=== PATIENT | male | born 1970 | race Caucasian/White ===

== ENCOUNTER 2020-11-12 09:02 | Outpatient (CLI) | payer BC, SELFPAY ==
--- NOTE | 2020-11-28 15:11 | WPDHOMESLEEP ---
Sleep Study - Home Unattended Date of Study: 11/12/20 Ordering Provider: Car Tiwari MD Interpreting Provider: Magalys Siu MD Home Sleep Study Type: Apnea Link Air Height: 1.83 m Weight: 97.522 kg Body Mass Index: 29.1 Neck Circumference (inches): 17 [place]: 12 Reason for Sleep Study Loud snoring, poor quality sleep, excessive daytime sleepiness Sleep History Johnathan Garza is a 50 year old man with difficulty getting to bed early enough. He snores very loudly. He estimates getting 4.5 to 5 hours of sleep at night. It is difficult for him to fall asleep and stay asleep. He occasionally awakens at night with heartburn, belching or coughing. He frequently awakens from sleep feeling short of breath. He frequently has trouble sleeping with a cold. He occasionally wakes up gasping for breath during the night. He occasionally has breathing problems at night observed by others. He occasionally notices his heart pounding or beating irregularly night. He frequently falls asleep during the day however this never happens involuntarily or while driving. He does not have loss of muscle tone with strong emotion. He does not have daytime difficulties due to excessive sleepiness. He does not feel paralyzed on waking or falling asleep. He occasionally has vivid dreamlike scenes upon awakening or falling asleep. He does not feel afraid to go to sleep. He does not have nightmares. He rarely remembers his dreams. He occasionally has racing thoughts. He rarely feels sad or depressed. He frequently has anxiety and muscular tension. He frequently notices parts of his body jerking. He does not kick at night. He occasionally has crawling and aching feelings in his legs. He does not have any kind of leg pain at night. He does not have morning jaw pain and does not grind his teeth during sleep. He constantly has bothered by pain during the day. He frequently is awakened by pain at night. He constantly wakes up feeling stiff in the morning with sore achy muscles and pain in the spine. He has fatigue and memory problems. Normal bedtime is between 10:30 p.m. and 11:00 p.m. falling asleep within 30 minutes if he has the television on. He typically wakes 3-5 times at night. He tries to return to sleep by keeping his eyes closed and not letting his mind think about too many things. He wakes in the morning at 4:15 a.m.. On the weekends, he stays awake a little later, 11:00 p.m. to midnight and wakes at 7:00 a.m.. He estimates getting 4.5 to 5 hours of sleep most nights. He takes naps at work. A short 10 or 15 minute nap sometimes feels refreshing. He is drowsy in the morning for 3 hours or longer. Habits: Caffeine 4 cups per day. No alcohol. 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 Fatigue Hypersomnia Primary hypertension Family History Family History Mother Patient's mother is , Onset Age: 69 Father Patient's father is , Onset Age: 73 Social History Social History Smoking status: Former smoker Alcohol intake: never Substance use: never Substance use type: does not use Medications Home Medications Medication Instructions Recorded Confirmed Type clotrimazole-betamethasone 1 1 applic TOPICAL BID 14 Days #45 gm 02/21/20 10/01/20 Rx %-0.05 % topical cream amlodipine 10 mg tablet 10 mg PO DAILY #90 tablet 10/01/20 10/01/20 Rx buspirone 15 mg tablet 15 mg PO BID #180 tablet 10/01/20 10/01/20 Rx hydrochlorothiazide 12.5 mg tablet 12.5 mg PO DAILY #90 tablet 10/01/20 10/01/20 Rx irbesartan 300 mg tablet 300 mg PO DAILY #90 tablet 10/01/20 10/01/20 Rx Sleep Procedure This test was perfo
[2020-11-28 15:25] VITALS: BMI 29.1
== END 2020-11-12 09:03 | disposition home or self-care (01) ==
PROVIDERS: PCP Family Medicine; Visit Provider Family Medicine
DX: G47.33 Obstructive sleep apnea (adult) (pediatric) (principal)
CPT/HCPCS: 95806

== ENCOUNTER → 2020-12-12 01:27 | Outpatient (CLI) | payer BC, SELFPAY ==
[2020-12-12 21:08] LABS: SARS-CoV-2 RNA PCR Negative
== END ==
PROVIDERS: PCP Family Medicine; Visit Provider Internal Medicine Critical Care Medicine
DX: R68.89 Other general symptoms and signs (principal); Z20.822 Contact with and (suspected) exposure to COVID-19
CPT/HCPCS: C9803; U0003; U0005

== ENCOUNTER 2020-12-14 07:31 | Outpatient (CLI) | payer BC, SELFPAY ==
--- NOTE | 2020-12-28 20:18 | WPDSLEEPSTUD ---
Sleep Study Date of Study: 12/14/20 Ordering Provider: Car Tiwari MD Interpreting Physician: Magalys Siu MD Sleep Study Type: CPAP Titration Height: 1.83 m Weight: 98.43 kg Body Mass Index: 29.4 Neck Circumference (inches): 17 [place]: 14 Reason for Sleep Study 11/12/2020 home sleep test; mild MALKA, AHI 8.5, 75% of apneas centrals, presents for CPAP titration Sleep History Johnathan Garza is a 50 year old man with difficulty getting to bed early enough. He snores very loudly. He estimates getting 4.5 to 5 hours of sleep at night. It is difficult for him to fall asleep and stay asleep. He occasionally awakens at night with heartburn, belching or coughing. He frequently awakens from sleep feeling short of breath. He frequently has trouble sleeping with a cold. He occasionally wakes up gasping for breath during the night. He occasionally has breathing problems at night observed by others. He occasionally notices his heart pounding or beating irregularly night. He frequently falls asleep during the day however this never happens involuntarily or while driving. He does not have loss of muscle tone with strong emotion. He does not have daytime difficulties due to excessive sleepiness. He does not feel paralyzed on waking or falling asleep. He occasionally has vivid dreamlike scenes upon awakening or falling asleep. He does not feel afraid to go to sleep. He does not have nightmares. He rarely remembers his dreams. He occasionally has racing thoughts. He rarely feels sad or depressed. He frequently has anxiety and muscular tension. He frequently notices parts of his body jerking. He does not kick at night. He occasionally has crawling and aching feelings in his legs. He does not have any kind of leg pain at night. He does not have morning jaw pain and does not grind his teeth during sleep. He constantly has bothered by pain during the day. He frequently is awakened by pain at night. He constantly wakes up feeling stiff in the morning with sore achy muscles and pain in the spine. He has fatigue and memory problems. Normal bedtime is between 10:30 p.m. and 11:00 p.m. falling asleep within 30 minutes if he has the television on. He typically wakes 3-5 times at night. He tries to return to sleep by keeping his eyes closed and not letting his mind think about too many things. He wakes in the morning at 4:15 a.m.. On the weekends, he stays awake a little later, 11:00 p.m. to midnight and wakes at 7:00 a.m.. He estimates getting 4.5 to 5 hours of sleep most nights. He takes naps at work. A short 10 or 15 minute nap sometimes feels refreshing. He is drowsy in the morning for 3 hours or longer. Habits: Caffeine 4 cups per day. No alcohol. 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 Fatigue Hypersomnia Primary hypertension Family History Family History Mother Patient's mother is , Onset Age: 69 Father Patient's father is , Onset Age: 73 Social History Social History Smoking status: Former smoker Alcohol intake: never Substance use: never Substance use type: does not use Medications Home Medications Medication Instructions Recorded Confirmed Type clotrimazole-betamethasone 1 1 applic TOPICAL BID 14 Days #45 gm 02/21/20 10/01/20 Rx %-0.05 % topical cream amlodipine 10 mg tablet 10 mg PO DAILY #90 tablet 10/01/20 10/01/20 Rx buspirone 15 mg tablet 15 mg PO BID #180 tablet 10/01/20 10/01/20 Rx hydrochlorothiazide 12.5 mg tablet 12.5 mg PO DAILY #90 tablet 10/01/20 10/01/20 Rx irbesartan 300 mg tablet 300 mg PO DAILY #90 tablet 10/01/20 10/01/20 Rx Sleep Procedure This
[2020-12-28 20:19] VITALS: BMI 29.4
== END 2020-12-14 07:32 | disposition home or self-care (01) ==
LOC: ANHCSM 07:32
PROVIDERS: PCP Family Medicine; Visit Provider Family Medicine
DX: G47.33 Obstructive sleep apnea (adult) (pediatric) (principal)
CPT/HCPCS: 95811

== ENCOUNTER 2021-01-29 13:25 | Outpatient (CLI) | payer BC, SELFPAY ==
--- NOTE | 2021-01-29 13:36 | ECHO_ITS ---
Patient Info Name: Johnathan Garza Age: 51 years : 1970 Gender: Male Ht: 72 in Wt: 220 lbs BSA: 2.27 m2 HR: 64 bpm BP: 139 / 86 mmHg Heart Rhythm: Sinus Rhythm Exam Date: 01/29/2021 1:46 PM Exam Location: [facility] Patient Status: Outpatient Admit Date: 01/29/2021 Staff Ordering Physician: Car Tiwari MD Trial Paralegal: Jennifer Rogers RDCS Attending Provider: Car Tiwari MD Exam Type: CA echo doppler color flow Study Info Indications - PRIMARY CENTRAL SLEEP APNEA Complete two-dimensional, color flow and Doppler transthoracic echocardiogram is performed. Summary 1. Complete two-dimensional, color flow and Doppler transthoracic echocardiogram is performed. 2. Left ventricular chamber dimension is normal. 3. Left ventricular systolic function is normal, estimated at 60-65%. 4. The left ventricular diastolic function is normal. 5. E/e' 7 is not elevated. 6. There is trace mitral valve regurgitation. 7. There is trace tricuspid valve regurgitation. 8. No pulmonary hypertension, estimated pulmonary arterial systolic pressure is 23 mmHg. 9. There is trace pulmonic regurgitation. Left Ventricle E/e' 7 is not elevated. Left ventricular chamber dimension is normal. Left ventricular systolic function is normal, estimated at 60-65%. The left ventricular diastolic function is normal. Right Ventricle Right ventricular chamber dimension is normal. Right ventricular systolic function is normal. Left Atria Left atrial chamber dimension is normal. Right Atria Right atrial chamber dimension is normal. Aortic Valve The aortic valve is trileaflet. There is no aortic valve stenosis. There is no aortic valve regurgitation. Pulmonic Valve There is trace pulmonic regurgitation. Mitral Valve There is no mitral valve stenosis. There is trace mitral valve regurgitation. Tricuspid Valve There is trace tricuspid valve regurgitation. No pulmonary hypertension, estimated pulmonary arterial systolic pressure is 23 mmHg. Pericardium/Pleural There is no pericardial effusion. Inferior Vena Cava Normal inferior vena cava with >50% collapse upon inspiration consistent with normal right atrial pressure, 5 mmHg. Aorta The aortic root size at the sinus of Valsalva is normal. Left Ventricular Outflow Tract Name Value Normal LVOT 2D LVOT Diameter 2.2 cm LVOT Doppler LVOT Peak Gradient 4 mmHg LVOT Mean Gradient 2 mmHg LVOT VTI 25 cm LVOT VTI/AV VTI Ratio 0.7 LVOT Stroke Volume 95 ml LVOT CO 4.4 l/min LVOT CI 1.9 l/min/m2 Pulmonic Valve Name Value Normal RVOT Doppler RVOT Peak Gradient 1 mmHg
== END 2021-01-29 13:26 | disposition home or self-care (01) ==
LOC: ANHCARD 13:27
PROVIDERS: PCP Family Medicine; Visit Provider Family Medicine
DX: G47.31 Primary central sleep apnea (principal)
CPT/HCPCS: 93306

== ENCOUNTER 2021-06-19 08:19 | Observation (INO) | payer BC, SELFPAY ==
[2021-06-19] VITALS (11 sets, daily range): BP systolic 113–139; BP diastolic 71–88; PULSE 71–106; RESP 14–22; TEMP 35.9–38.1; O2SAT 91–97; BMI 26.6
--- NOTE | ~2021-06-19 | XR_ITS ---
EXAMINATION: XR chest 2V DATE: 06/19/2021 12:21 INDICATION: Shortness of breath. COVID-19 pneumonia. TECHNIQUE: Frontal and lateral views of the chest were obtained. COMPARISON: Chest 2 views 10/16/2017 FINDINGS: There is mild scarring at the lung apices. There are patchy airspace opacities in the mid a nd lower lung zones. No pleural effusion or pneumothorax. The heart size is normal. IMPRESSION: 1. Patchy airspace opacities in the mid and lower lung zones, consistent with COVID-19 pneumonia. Reviewed, dictated and finalized at location A. IMPRESSION: 1. Patchy airspace opacities in the mid and lower lung zones, consistent with C OVID-19 pneumonia.
--- NOTE | ~2021-06-19 | NM_ITS ---
EXAMINATION: NM pulmonary perfusion DATE: 06/19/2021 13:17 INDICATION: Dyspnea. TECHNIQUE: 5 mCi Tc-99m MAA was administered intravenously for perfusion images. Scintigraphic image s of the chest were obtained. COMPARISON: Chest 2 views 06/19/2021 FINDINGS: Perfusion images show matched small and moderate sized defects in the lower lobes. IMPRESSION: 1. Nondiagnostic (intermediate probability for pulmonary embolism). Reviewed, dictated and finalized at location A.
--- NOTE | 2021-06-19 08:48 | ECG_ITS ---
Measurements Intervals [place] Rate: 73 P: 56 [place]: 144 QRS: 26 QRSD: 101 T: 16 QT: 368 QTc: 408 Interpretive Statements SINUS RHYTHM CONSIDER INFERIOR INFARCT, AGE INDETERMINATE BASELINE WANDER- I, II, III, AVR, AVL, AVF, V1-V2, V4-V6 ABNORMAL ECG Electronically Signed On 06-19-2021 9:27:44 CDT by Jose Manuel Abad D.O.
--- NOTE | 2021-06-19 08:50 | ED.GENADULT ---
HPI - General Adult General Chief complaint: Upper Respiratory Infection Stated complaint: trouble breathing Source: patient Mode of arrival: ambulatory History of Present Illness HPI narrative: Kevin is a 51M with a PMH of HTN, low folate, anxiety and obesity that presented to the ED with worsening COVID symptoms. He started to feel ill on 06/08 and was diagnosed on 06/12. He received an antibody infusion on 06/17 but has worsening SOB, cough, fevers up to 103 and pain in his chest with deep inspiration. No N/V or syncope reported. Related Data Home Medications Medication Instructions Recorded Confirmed cyanocobalamin (vitamin B-12) 1,000 mcg PO DAILY 02/03/21 06/19/21 1,000 mcg tablet Allergies Allergy/AdvReac Type Severity Reaction Status Date / Time shellfish derived Allergy Severe SWELLING Verified 06/19/21 08:37 shrimp Allergy Severe SWELLING Verified 06/19/21 08:37 iodine Allergy Unknown Unknown Verified 06/19/21 08:37 Contrast Media Allergy Severe SWELLING Uncoded 05/10/21 10:32 Review of Systems Constitutional: Constitutional: Reports as per HPI, Reports chills, Reports fatigue, Reports fever(s) and Reports weakness Eyes: Eyes: Reports no additional eye complaints ENT: Reports system reviewed and no additional complaints, except as documented Cardiovascular: Cardiovascular: Reports as per HPI Respiratory: Respiratory: Reports as per HPI Gastrointestinal: Gastrointestinal: Reports no additional gastrointestinal complaints Genitourinary: Genitourinary: Reports no additional male genitourinary complaints Musculoskeletal: Musculoskeletal: Reports no additional musculoskeletal complaints Integumentary/Breasts: Skin/Breast: Reports system reviewed and no additional complaints, except as docu Neurologic: Reports system reviewed and no additional complaints, except as documented Psychiatric: Psychiatric: Reports no additional psychiatric complaints Endocrine: Endocrine: Reports no additional endocrine complaints Hematologic/Lymphatic: Hematologic/Lymphatic: Reports no additional hematologic/lymphatic complaints Allergic/Immunologic: Allergic/Immunologic: Reports no additional allergic/immunologic complaints [facility] Past Medical History Medical History Anxiety BMI 29.0-29.9,adult BMI 31.0-31.9,adult Chronic cough COVID-19 (~06/12/21) 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 Fatigue Folic acid deficiency (02/01/21) Hypersomnia Microscopic hematuria (02/01/21) Mixed hyperlipidemia (02/01/21) Osteoarthritis of both hands Primary hypertension Seasonal allergic rhinitis Vitamin B12 deficiency anemia (02/01/21) Family History Family History Mother Patient's mother is , Onset Age: 69 Father Patient's father is , Onset Age: 73 Social History Social History Smoking status: Never smoker Second hand tobacco smoke exposure: No Alcohol intake: never Alcohol use details: wine occasionally Substance use: never Substance use type: does not use Gender identity (if verbalized by the patient): Male Sexual Orientation (if Verbalized by the Patient): Straight or Heterosexual Spiritual care concerns: No Exam Const: General: no acute distress and alert Orientation/consciousness: patient oriented x3 Limitations: No altered mental status HENMT: Head: normal to inspection Other: atraumatic Eyes: Conjunctivae: conjunctivae normal Pupils: Equal, round and reactive pupils present Neck: Neck: normal visual inspection Chest: Chest palpation & inspection: normal inspection of the chest Resp: Other: Slightly labored breathing, with tachypnea and diffuse faint rales Cardio: Rate: regular rate Rhythm: regular rhythm GI: Inspection:
[2021-06-19 09:24] LABS: Basophils Absolute Auto 0.01 K/mm3 (0.00-0.10); Basophils Percent Auto 0.1 % (0.0-1.0); Eosinophils Absolute Auto 0.04 K/mm3 (0.02-0.50); Eosinophils Percent Auto 0.4 % (1.0-6.0); Hematocrit 41.3 % (40.0-54.0); Hemoglobin 14.4 g/dL (14.0-18.0); Immature Granulocyte Absolute 0.05 K/mm3 (0.00-0.00); Immature Granulocyte Percent A 0.5 % (0.0-0.0); Lymphocytes Absolute Auto 1.04 K/mm3 (1.10-4.50); Lymphocytes Percent Auto 11.1 % (18.0-42.0); Mean Corpuscular HGB Conc 34.9 g/dL (32.0-36.0); Mean Corpuscular Hemoglobin 30.1 pg (27.0-31.0); Mean Corpuscular Volume 86.4 fL (78.0-102.0); Mean Platelet Volume 10.7 fl (8.7-11.0); Monocytes Absolute Auto 0.61 K/mm3 (0.10-0.90); Monocytes Percent Auto 6.5 % (2.0-11.0); Neutrophils Absolute Auto 7.6 K/mm3 (1.7-7.2); Neutrophils Percent Auto 81.4 % (50.0-70.0); Platelet Count Result 302 K/mm3 (150-420); Red Blood Count 4.78 M/mm3 (4.70-6.10); Red Cell Distribution Width 11.9 % (11.6-14.4); White Blood Count 9.3 K/mm3 (4.8-10.8)
[2021-06-19 09:35] LABS: INR 1.2; Prothrombin Time 12.5 Seconds (9.50-12.10)
[2021-06-19 09:42] LABS: Influenza Control Valid (Valid)
[2021-06-19 09:44] LABS: Anion Gap 11 mmol/L (8-16); Blood Urea Nitrogen 14 mg/dL (7-18); Calcium 8.7 mg/dL (8.5-10.1); Carbon Dioxide 28 mmol/L (21-32); Chloride 97 mmol/L (98-108); Estimated CRCL calculation 78 ml/min; Estimated Glomerular Filt Rate > 60; Glucose 171 mg/dL (70-99); Osmolality Calculated 286 mOsm/kg (285-295); Potassium 3.3 mmol/L (3.5-5.1); Sodium 136 mmol/L (136-145)
[2021-06-19 09:45] LABS: Alanine Aminotransferase 56 U/L (16-63); Aspartate Amino Transferase 37 U/L (15-37); Bilirubin,Total 0.9 mg/dL (0.00-1.00); Total Protein 8.5 g/dL (6.4-8.2); Troponin I 118.1 ng/L (0.00-60.4)
[2021-06-19 09:46] LABS: Albumin Level 3.1 g/dL (3.4-5.0); Alkaline Phosphatase 43 U/L (46-116)
--- NOTE | 2021-06-19 09:47 | PC.NURSE ---
Lab called withe elevated Troponin of 118.1. Dr. Smith notified.
[2021-06-19 09:57] LABS: NT Pro B Type Natriuretic Pept 38 pg/mL (0-125)
[2021-06-19] MEDS: ASPIRIN 81 MG CHEWABLE TABLET 324 MG PO (10:28)
[2021-06-19] MEDS: NITROGLYCERIN SL 0.4 MG TABLET SUBLINGUAL (10:29)
--- NOTE | 2021-06-19 10:35 | PC.NURSE ---
Dr. Smith made initial call to [facility] for transfer and spoke with
[2021-06-19] MEDS: HEPARIN SODIUM 5,000 UNITS/ML VIAL 4000 UNITS IV PUSH ×2 (11:18→21:36)
[2021-06-19] MEDS: HEPARIN SOD/D5W 100 UNITS/ML 25,000 UNITS/250 ML BAG 10.08 UNITS IV CONT (11:19)
[2021-06-19] MEDS: DEXAMETHASONE 2 MG TABLET 6 MG PO (12:07)
--- NOTE | 2021-06-19 12:12 | PC.NURSE ---
Report called to Amparo, swapnil RN
--- NOTE | 2021-06-19 13:37 | PM.IMHP ---
H&P: HPI History of Present Illness Date/Time: 06/19/21 13:37 This is a 51 YO male that presented to Ed with complains of SOB, and cp after testing positive. Patient has a past medical hx of anxiety, htn, OA. According to patient his child had a low grade fever last week and was sent home at that point the whole family was quarantine according to patient his whole family tested positive his daughter who has been vaccinated was the only family member that did not test positive. According to patient he started developing shortness of breath, chest pain, subjective fever, and body aches which prompted him to come to our emergency department patient noted that his condition had worsened over the last couple of days.wbc 9.3, hgb 14.4, hct 41.3 ,plt 302,na 136,k 3.3,glucose 171, trop 118.1, bnp at 38,cxr covid pna, vq scan intermediate probability for pulmonary embolism. 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 He recommended trying steroids and to admit here. 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 Fatigue Folic acid deficiency (02/01/21) Hypersomnia Microscopic hematuria (02/01/21) Mixed hyperlipidemia (02/01/21) Osteoarthritis of both hands Primary hypertension Seasonal allergic rhinitis Vitamin B12 deficiency anemia (02/01/21) <TARA Bliss - Last Filed: 06/19/21 14:28> Family History Family History: Family History Mother Patient's mother is , Onset Age: 69 Father Patient's father is , Onset Age: 73 <TARA Bliss - Last Filed: 06/19/21 14:28> Social History Social History: Social History Smoking status: Never smoker Second hand tobacco smoke exposure: No Alcohol intake: never Alcohol use details: wine occasionally Substance use: never Substance use type: does not use Gender identity (if verbalized by the patient): Male Sexual Orientation (if Verbalized by the Patient): Straight or Heterosexual Spiritual care concerns: No <TARA Bliss - Last Filed: 06/19/21 14:28> Meds Home Medications and Allergies Home medications: Home Medications Medication Instructions Recorded Confirmed Type clotrimazole-betamethasone 1 1 applic TOPICAL BID 14 Days #45 gm 02/21/20 06/19/21 Rx %-0.05 % topical cream buspirone 15 mg tablet 15 mg PO BID #180 tablet 10/01/20 06/19/21 Rx hydrochlorothiazide 12.5 mg tablet 12.5 mg PO DAILY #90 tablet 10/01/20 06/19/21 Rx irbesartan 300 mg tablet 300 mg PO DAILY #90 tablet 10/01/20 06/19/21 Rx meloxicam 15 mg tablet 15 mg PO DAILY PRN #30 tablet 01/31/21 06/19/21 Rx cyanocobalamin (vitamin B-12) 1,000 mcg PO DAILY 02/03/21 06/19/21 History 1,000 mcg tablet folic acid 1 mg tablet 1 mg PO DAILY #90 tablet 02/03/21 06/19/21 Rx fluticasone propionate 50 1 spray INTRANASAL BID #16 g 06/12/21 06/19/21 Rx mcg/actuation nasal spray,suspension <TARA Bliss - Last Filed: 06/19/21 14:28> Allergies/Adverse reactions: Allergies Allergy/AdvReac Type Severity Reaction Status Date / Time shellfish derived Allergy Severe SWELL
[2021-06-19] MEDS: BENZONATATE 100 MG CAPSULE 200 MG PO (16:56)
[2021-06-19] MEDS: busPIRone HCL 5 MG TABLET 15 MG PO (16:57)
[2021-06-19] MEDS: FLUTICASONE PROPIONATE 0.05% NA SPR 16 GM BTL (*BKC) 1 SPRAY NASAL (16:58)
--- NOTE | 2021-06-19 17:13 | PC.NURSE ---
HOB was raised for dinner and fresh ice water was brought to pt. Call light and phone within reach of pt.
--- NOTE | 2021-06-19 18:21 | ECG_ITS ---
Measurements Intervals [place] Rate: 103 P: [place]: 0 QRS: 14 QRSD: 94 T: 27 QT: 333 QTc: 437 Interpretive Statements ATRIAL FIBRILLATION WITH RAPID VENTRICULAR RESPONSE ABNORMAL ECG Electronically Signed On 06-20-2021 8:06:24 CDT by Jose Manuel Abad D.O.
[2021-06-19 18:27] LABS: Partial Thromboplastin Time 43.7 SEC (23.90-30.70)
[2021-06-19 19:00] LABS: Troponin I 97.9 ng/L (0.00-60.4)
--- NOTE | 2021-06-19 19:02 | PC.NURSE ---
Patient's Troponin 97.9, PTT 43.7. MD notified. No new orders at this time.
--- NOTE | 2021-06-19 19:31 | PC.NURSE ---
Updated pt on PTT result and educated pt on voiding in urinal for measuring output and pt safety to prevent falls. Pt verbalized understanding and has call light and phone within reach.
--- NOTE | 2021-06-19 19:33 | PC.NURSE ---
Results from PTT were notified to charge nurse and MD no new orders received.
--- NOTE | 2021-06-19 21:34 | PC.NURSE ---
[facility] Pharmacist notified of PTT result of 43.7. New orders to give Heparin 4000 units bolus then increase Heparin drip by 3 ml/hr.
[2021-06-19] MEDS: guaiFENesin 12 HR 600 MG TABCR 1200 MG PO (21:36)
[2021-06-19] MEDS: METOPROLOL SUCCINATE EXT REL 25 MG TABCR PO (21:36)
[2021-06-19] MEDS: BUDESONIDE/FORMOTEROL 80/4.5 MCG 6.9 GM INHALER (*SP) 2 PUFF INHALATION (21:54)
--- NOTE | 2021-06-19 21:59 | PC.NURSE ---
Pt Kevin was educated on new beta luis medication and getting up slowly while body is adjusting to lowering bp. Education was also provided on use of a steroid inhaler and oral care after each use. Pt verbalized understanding and demonstrated back to this teletypewriter installer.
[2021-06-20 00:30] LABS: Troponin I 98.2 ng/L (0.00-60.4)
[2021-06-20 01:00] LABS: Partial Thromboplastin Time 96.3 SEC (23.90-30.70)
--- NOTE | 2021-06-20 01:04 | PC.NURSE ---
Bed changed per pt request. Pt states bed was damp from sweating. pt stood at edge of bed while bed was changed. Has no complaints. Cough states has been productive but unsure of what color. Heparin gtt continues. Reminded to call with needs.
--- NOTE | 2021-06-20 01:08 | PC.NURSE ---
PTT 96.3. No change in gtt rate per protocol.
--- NOTE | 2021-06-20 03:00 | PC.NURSE ---
Pt sleeping. Heparin drip infusing as ordered. No distress noted.
[2021-06-20 04:00] VITALS: BP 119/80; PULSE 75; RESP 20; TEMP 35.5; O2SAT 92
--- NOTE | 2021-06-20 05:35 | PCDIET ---
Pt awake per bed. AM labs drawn. Heparin continues to infuse. Pt has no complaints. Call gannon in reach. Reminded to call with needs.
[2021-06-20 05:40] LABS: Hematocrit 41.6 % (40.0-54.0); Hemoglobin 14.4 g/dL (14.0-18.0); Mean Corpuscular HGB Conc 34.6 g/dL (32.0-36.0); Mean Corpuscular Hemoglobin 30.4 pg (27.0-31.0); Mean Corpuscular Volume 87.8 fL (78.0-102.0); Mean Platelet Volume 11.1 fl (8.7-11.0); Platelet Count Result 299 K/mm3 (150-420); Red Blood Count 4.74 M/mm3 (4.70-6.10); Red Cell Distribution Width 11.9 % (11.6-14.4); White Blood Count 9.7 K/mm3 (4.8-10.8)
[2021-06-20 06:01] LABS: Magnesium 2.6 mg/dL (1.8-2.4)
--- NOTE | 2021-06-20 06:13 | PC.NURSE ---
AM troponin resulted, 96.7. Heparin gtt continues at current rate.
[2021-06-20 06:14] LABS: Troponin I 96.7 ng/L (0.00-60.4)
[2021-06-20 08:00] VITALS: BP 122/80; PULSE 80; PULSE 84; RESP 18; TEMP 36.8; O2SAT 95
[2021-06-20] MEDS: hydroCHLOROthiazide 12.5 MG CAPSULE PO (08:19)
[2021-06-20] MEDS: guaiFENesin 12 HR 600 MG TABCR 1200 MG PO (08:19)
[2021-06-20] MEDS: busPIRone HCL 5 MG TABLET 15 MG PO (08:19)
[2021-06-20] MEDS: IRBESARTAN 150 MG TABLET 300 MG PO (08:19)
[2021-06-20] MEDS: BUDESONIDE/FORMOTEROL 80/4.5 MCG 6.9 GM INHALER (*SP) 2 PUFF INHALATION (08:20)
[2021-06-20] MEDS: BENZONATATE 100 MG CAPSULE 200 MG PO (08:20)
[2021-06-20] MEDS: FOLIC ACID 1 MG TABLET PO (08:20)
[2021-06-20] MEDS: CYANOCOBALAMIN 1,000 MCG TABLET 1000 MCG PO (08:20)
[2021-06-20] MEDS: BETAMETHASONE/CLOTRIMAZOLE CR 15 GM TUBE 1 APPLIC TOPICAL (08:21)
--- NOTE | 2021-06-20 09:11 | P.DS_ITS ---
DS: Admitting Diagnosis Discharge Date 06/20/2021 Admitting Diagnosis Covid pneumonia, new onset A. fib DS: Discharge Diagnosis Discharge Diagnosis (1) COVID-19: Onset Date: ~06/12/21 Code(s): U07.1 - COVID-19 Status: Acute Assessment and Plan: * cxr indicate covid pna * continue dexamethasone * continue Symbicort * off quarantine for 06/20/2021,, Discharge * Patient will discharge home with dexamethasone ,Symbicort and Levaquin (2) Chronic cough: Code(s): R05.3 - Chronic cough Status: Acute Assessment and Plan: * Started Tessalon Perles and guaifenesin (3) Primary hypertension: Code(s): I10 - Essential (primary) hypertension Status: Acute Assessment and Plan: * Continue HCTZ, and Irbesartan right vital signs as ordered she got any gross vital signs as ordered he got the dressing * Blood pressure stable * Will adjust medication as needed * Vital signs as ordered Discharge * Continue home medication (4) Chest pain: Code(s): R07.9 - Chest pain, unspecified Status: Acute Assessment and Plan: * Possibly secondary to covid * resolved * Troponin is trending down * EKG normal * Patient will follow with a belt operator * (5) Hypokalemia: Code(s): E87.6 - Hypokalemia Status: Acute Assessment and Plan: * Potassium 3.3>3.7 * Replace with supplement (6) Elevated troponin: Code(s): R77.8 - Other specified abnormalities of plasma proteins Status: Acute Assessment and Plan: * incresead trop 118.1>97.9>98.2>96.7 * ekg sr hr this point was at today73 Discharge * Patient has a scheduled appointment with the belt operator (7) Mixed hyperlipidemia: Onset Date: 02/01/21 Code(s): E78.2 - Mixed hyperlipidemia Status: Acute Assessment and Plan: * no home medication * trig 203, chol 202, ldl 130, hdl 38 (8) A-fib: Code(s): I48.91 - Unspecified atrial fibrillation Status: Acute Assessment and Plan: * Newly diagnosed * Patient will follow up with a belt operator * Patient will discharge home with Eliquis and metoprolol (9) Myocarditis due to 2019 novel coronavirus: Code(s): U07.1 - COVID-19; I40.0 - Infective myocarditis Status: Acute Assessment and Plan: * Refer to Covid and elevated troponin (10) Pulmonary embolism: Code(s): I26.99 - Other pulmonary embolism without acute cor pulmonale Status: Acute Assessment and Plan: * VQ scan indicates she accepted Perfusion images show matched small and moderate sized defects in the lower lobes. [facility] patient is on a waiting list so they referred them to their system which is indicated she said you know she must like she said she is that anywhere no any place but anus DS: Summary Hospital Course Reason for hospitalization: Shortness of breath, chest pain Hospital Course: This is a 51 YO male that presented to [facility] with complains of SOB, and cp after testing positive for Covid. Patient has a past medical hx of anxiety, htn, OA. According to patient his child had a low grade fever last week and was sent home at that point the whole family was quarantine according to patient his whole family tested positive his daughter who has been vaccinated was the only family member that did not test positive. According to patient he started developing shortness of breath, chest pain, subjective fever, and body aches which
--- NOTE | 2021-06-20 09:11 | PM.DS ---
DS: Admitting Diagnosis Discharge Date 06/20/2021 Admitting Diagnosis Covid pneumonia, new onset A. fib DS: Discharge Diagnosis Discharge Diagnosis (1) COVID-19: Onset Date: ~06/12/21 Code(s): U07.1 - COVID-19 Status: Acute Assessment and Plan: cxr indicate covid pna continue dexamethasone continue Symbicort off quarantine for 06/20/2021,, Discharge Patient will discharge home with dexamethasone ,Symbicort and Levaquin (2) Chronic cough: Code(s): R05.3 - Chronic cough Status: Acute Assessment and Plan: Started Tessalon Perles and guaifenesin (3) Primary hypertension: Code(s): I10 - Essential (primary) hypertension Status: Acute Assessment and Plan: Continue HCTZ, and Irbesartan right vital signs as ordered she got any gross vital signs as ordered he got the dressing Blood pressure stable Will adjust medication as needed Vital signs as ordered Discharge Continue home medication (4) Chest pain: Code(s): R07.9 - Chest pain, unspecified Status: Acute Assessment and Plan: Possibly secondary to covid resolved Troponin is trending down EKG normal Patient will follow with a morale officer (5) Hypokalemia: Code(s): E87.6 - Hypokalemia Status: Acute Assessment and Plan: Potassium 3.3>3.7 Replace with supplement (6) Elevated troponin: Code(s): R77.8 - Other specified abnormalities of plasma proteins Status: Acute Assessment and Plan: incresead trop 118.1>97.9>98.2>96.7 ekg sr hr this point was at today73 Discharge Patient has a scheduled appointment with the morale officer (7) Mixed hyperlipidemia: Onset Date: 02/01/21 Code(s): E78.2 - Mixed hyperlipidemia Status: Acute Assessment and Plan: no home medication trig 203, chol 202, ldl 130, hdl 38 (8) A-fib: Code(s): I48.91 - Unspecified atrial fibrillation Status: Acute Assessment and Plan: Newly diagnosed Patient will follow up with a morale officer Patient will discharge home with Eliquis and metoprolol (9) Myocarditis due to 2019 novel coronavirus: Code(s): U07.1 - COVID-19; I40.0 - Infective myocarditis Status: Acute Assessment and Plan: Refer to Covid and elevated troponin (10) Pulmonary embolism: Code(s): I26.99 - Other pulmonary embolism without acute cor pulmonale Status: Acute Assessment and Plan: VQ scan indicates she accepted Perfusion images show matched small and moderate sized defects in the lower lobes. [facility] yet [facility] are [facility] taking [facility] patient is on a waiting list so they referred them to their system which is indicated she said you know she must like she said she is that anywhere no any place but anus DS: Summary Hospital Course Reason for hospitalization: Shortness of breath, chest pain Hospital Course: This is a 51 YO male that presented to [facility] with complains of SOB, and cp after testing positive for Covid. Patient has a past medical hx of anxiety, htn, OA. According to patient his child had a low grade fever last week and was sent home at that point the whole family was quarantine according to patient his whole family tested positive his daughter who has been vaccinated was the only family member that did not test positive. According to patient he started developing shortness of breath, chest pain, subjective fever, and body aches which prompted him to come to our emergency department patient noted that his condition had worsened over the last couple of days. Power Systems Engineer contacted He was not concerned about NSTEMI and thought the EKG looked ok. He recommended trying steroids and to admit here. 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 I did speak with his doctor's office and updated them on patient's condition and patient has a follow-up appointment with cardiology. He will discharge home with Radha and
[2021-06-20 09:26] LABS: Anion Gap 13 mmol/L (8-16); Blood Urea Nitrogen 15 mg/dL (7-18); Carbon Dioxide 25 mmol/L (21-32); Chloride 101 mmol/L (98-108); Estimated CRCL calculation 92 ml/min; Estimated Glomerular Filt Rate > 60; Glucose 167 mg/dL (70-99); Osmolality Calculated 292 mOsm/kg (285-295); Potassium 3.7 mmol/L (3.5-5.1); Sodium 139 mmol/L (136-145)
--- NOTE | 2021-06-20 12:54 | PC.NURSE ---
1135 dc instructions went over. iv dc'd. site clean. voices no questions on dc. claims he understands and encouraged to call back if he does. taken to 's auto per wc.
--- NOTE | 2021-06-25 12:11 | PC.NURSE ---
Unable to contact for discharge call back.
== END 2021-06-20 11:35 | disposition home or self-care (01) ==
LOC: CHSED 09:15 → CHS2ND 12:25
PROVIDERS: Nurse Practitioner; Admitting Provider Family Medicine; Emergency Provider Family Medicine; PCP Family Medicine; Visit Provider Family Medicine
DX: U07.1 COVID-19 (principal); R07.9 Chest pain, unspecified; R77.8 Other specified abnormalities of plasma proteins; E87.6 Hypokalemia; I10 Essential (primary) hypertension; E53.8 Deficiency of other specified B group vitamins; E78.2 Mixed hyperlipidemia; M47.816 Spondylosis without myelopathy or radiculopathy, lumbar region; M47.812 Spondylosis without myelopathy or radiculopathy, cervical region; M19.041 Primary osteoarthritis, right hand; M19.042 Primary osteoarthritis, left hand; G47.10 Hypersomnia, unspecified; F41.9 Anxiety disorder, unspecified
CPT/HCPCS: 36415; 71046; 78580; 80048; 80053; 83735; 83880; 84484; 85025; 85027; 85610; 85730; 87040; 87804; 93005; 96365; 96366; 96367; 96368; 99285; A9270; A9540; G0378; J1644; J1956; J7030; J8540

== ENCOUNTER 2021-08-05 13:41 | Outpatient (CLI) | payer BC, SELFPAY ==
--- NOTE | 2021-08-05 13:52 | ECHO_ITS ---
Patient Info Name: Johnathan Garza Age: 51 years : 1970 Gender: Male Ht: 72 in Wt: 220 lbs BSA: 2.27 m2 HR: 70 bpm BP: 158 / 102 mmHg Exam Date: 08/05/2021 2:12 PM Exam Location: [facility] Patient Status: Outpatient Admit Date: 08/05/2021 Staff Ordering Physician: Jose Manuel Abad DO Jigsawyer: Jim Jones, DELORES, RT Attending Provider: Jose Manuel Abad DO Referring Physician: Pollo CUEVA; Exam Type: CA echo doppler color flow Study Info Indications R06.00 - Dyspnea, unspecified Complete two-dimensional, color flow and Doppler transthoracic echocardiogram is performed. Strain analysis performed. Summary 1. Complete two-dimensional, color flow and Doppler transthoracic echocardiogram is performed. 2. Left ventricular chamber dimension is normal. 3. Left ventricular systolic function is normal, estimated at 60-65%. 4. The left ventricular diastolic function is grade I diastolic dysfunction. 5. E/e' 6 is not elevated. 6. Global longitudinal strain is abnormal at -16.2%. 7. There is trace tricuspid valve regurgitation. Left Ventricle E/e' 6 is not elevated. Global longitudinal strain is abnormal at -16.2%. Left ventricular chamber dimension is normal. Left ventricular systolic function is normal, estimated at 60-65%. The left ventricular diastolic function is grade I diastolic dysfunction. Right Ventricle Right ventricular systolic function is normal and with normal TAPSE 2.2 cm. Right ventricular chamber dimension is normal. Left Atria Left atrial chamber dimension is normal. Right Atria Right atrial chamber dimension is normal. Aortic Valve The aortic valve is trileaflet. There is no aortic valve stenosis. There is no aortic valve regurgitation. Pulmonic Valve There is no pulmonic regurgitation. Mitral Valve There is no mitral valve stenosis. There is no mitral valve regurgitation. Tricuspid Valve There is trace tricuspid valve regurgitation. RVSP Is not calculated due to an inadequate TR jet. Pericardium/Pleural There is no pericardial effusion. Inferior Vena Cava Normal inferior vena cava with >50% collapse upon inspiration consistent with normal right atrial pressure, 5 mmHg. Aorta The aortic root size at the sinus of Valsalva is normal. Left Ventricular Outflow Tract Name Value Normal LVOT 2D LVOT Diameter 2.0 cm LVOT Doppler LVOT Peak Gradient 6 mmHg LVOT Mean Gradient 3 mmHg LVOT VTI 23 cm LVOT VTI/AV VTI Ratio 0.8 LVOT Stroke Volume 71 ml LVOT CO 4.7 l/min LVOT CI 2.1 l/min/m2 Mitral Valve Name Value Normal MV Doppler MV Decel Schley 246 cm/s2 MV P
== END 2021-08-05 13:42 | disposition home or self-care (01) ==
LOC: ANHCARD 13:44
PROVIDERS: PCP Family Medicine; Visit Provider Internal Medicine Cardiovascular Disease
DX: R06.00 Dyspnea, unspecified (principal)
CPT/HCPCS: 93306

== ENCOUNTER 2022-06-27 01:00 | Day surgery (SDC) | payer BC, SELFPAY ==
[2022-06-19 09:06] VITALS: BMI 29.1
[2022-06-27 12:31] VITALS: BP 177/98; PULSE 69; RESP 18; TEMP 36.1; O2SAT 100; BMI 28.7
[2022-06-27] MEDS: LACTATED RINGERS 1,000 ML 150 ML IV CONT (12:50)
--- NOTE | 2022-06-27 13:00 | PM.HPGS ---
History of Present Illness History of Present Illness Consent: Risks, benefits, and alternatives have been discussed and questions answered. Patient agrees to proceed with procedure. Chief complaint: abdominal pain; rectal bleed Narrative: Johnathan Garza is a 52 year old male Seen in evaluation at the request of Dr. Tiwari. Colonoscopy an EGD requested. Patient reports vague diffuse abdominal pain apparently this worsens on eating foods. Occurs intermittently. No specific description for pain type is noted. Patient has noticed over the last year occasional rectal bleeding. Stools are often loose but not consistently and not always bloody. Patient presents today for colonoscopy an EGD. He reports that abdominal pain is improved on discontinuing pain medications. His family history is noncontributory. Review of Systems Review of Systems: Review of systems noncontributory. 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 Elevated troponin Fatigue Folic acid deficiency (02/01/21) GI bleeding Hypersomnia Hypertension Hypokalemia Irritable bowel syndrome with diarrhea (~12/04/21) Microscopic hematuria (02/01/21) Mixed hyperlipidemia (02/01/21) Obesity Obesity (BMI 30.0-34.9) Osteoarthritis of both hands Overweight (BMI 25.0-29.9) Primary hypertension Seasonal allergic rhinitis Vitamin B12 deficiency anemia (02/01/21) Family History Family History Mother Patient's mother is , Onset Age: 69 Father Patient's father is , Onset Age: 73 Social History Social History Years smoked: 1 Smoking status: Former smoker Tobacco type: cigarettes Second hand tobacco smoke exposure: No Alcohol intake: current Drinks per week: 1 Alcohol use details: wine occasionally Substance use: current Substance use type: marijuana Living arrangements: with family Gender identity (if verbalized by the patient): Male Sexual Orientation (if Verbalized by the Patient): Straight or Heterosexual Spiritual care concerns: No Meds Home Medications and Allergies Home Medications Medication Instructions Recorded Confirmed Type folic acid 1 mg tablet 1 mg PO DAILY #90 tabs 02/03/21 06/19/22 Rx albuterol sulfate 90 mcg/actuation 2 puff inhalation QID PRN 06/20/21 06/19/22 Rx aerosol inhaler (Proventil HFA) Shortness Of Breath 30 days #1 g irbesartan 300 mg tablet 300 mg PO DAILY #90 tabs 08/16/21 06/19/22 Rx hydrochlorothiazide 12.5 mg tablet 12.5 mg PO DAILY #90 tabs 09/02/21 06/19/22 Rx buspirone 15 mg tablet 15 mg PO TID #270 tabs 06/10/22 06/19/22 Rx clotrimazole-betamethasone 1 1 applic topical BID 2 weeks #45 06/12/22 06/19/22 Rx %-0.05 % topical cream grams escitalopram oxalate 20 mg tablet 20 mg PO DAILY #90 tabs 06/12/22 06/19/22 Rx (Lexapro) metoprolol succinate 100 mg 100 mg PO DAILY #90 tabs 06/12/22 06/19/22 Rx tablet,extended release 24 hr sodium,potassium,mag sulfates 17.5 See Rx Instructions PO .COMPLEX 06/13/22 06/19/22 Rx gram-3.13 gram-1.6 gram oral soln #354 mL (Suprep Bowel Prep Kit) Allergies Allergy/AdvReac Type Severity Reaction Status Date / Time shellfish derived Allergy Severe SWELLING Verified 06/27/22 12:31 shrimp Allergy Severe SWELLING Verified 06/27/22 12:31 iodine Allergy Unknown Unknown Verified 06/27/22 12:31 Contrast Media Allergy Severe SWELLING Uncoded 06/18/22 10:57 Vital Signs Vital Signs - 24 hr 06/27/22 12:31 Temperature 97 F L Pulse Rate 69 Respiratory Rate 18 Blood Pressure 177/98 H Pulse Oximetry 100 Oxygen
--- NOTE | 2022-06-27 13:08 | WPDANESEPPF ---
Anes - Initial Pre Proc Eval Procedure: Operation Date: 06/27/22 13:30 Proposed Procedures p Esophagogastroduodenoscopy & Colonoscopy - Jeremi Sampson MD Date/Time: 06/27/22 13:08 Surgeon: Jeremi Sampson MD Pre Op Diagnosis: abdominal pain; rectal bleed Patient Data Age: 52 Gender: M Height: 1.83 m Weight: 96 kg Last Vital Signs Temp 97 F L 06/27/22 12:31 Pulse 69 06/27/22 12:31 Resp 18 06/27/22 12:31 BP 177/98 H 06/27/22 12:31 Pulse Ox 100 06/27/22 12:31 O2 Del Method Room Air 06/27/22 12:31 Allergies Allergy/AdvReac Type Severity Reaction Status Date / Time shellfish derived Allergy Severe SWELLING Verified 06/27/22 12:31 shrimp Allergy Severe SWELLING Verified 06/27/22 12:31 iodine Allergy Unknown Unknown Verified 06/27/22 12:31 Contrast Media Allergy Severe SWELLING Uncoded 06/18/22 10:57 Home Medications Medication Instructions Recorded Confirmed Type folic acid 1 mg tablet 1 mg PO DAILY #90 tabs 02/03/21 06/19/22 Rx albuterol sulfate 90 mcg/actuation 2 puff inhalation QID PRN 06/20/21 06/19/22 Rx aerosol inhaler (Proventil HFA) Shortness Of Breath 30 days #1 g irbesartan 300 mg tablet 300 mg PO DAILY #90 tabs 08/16/21 06/19/22 Rx hydrochlorothiazide 12.5 mg tablet 12.5 mg PO DAILY #90 tabs 09/02/21 06/19/22 Rx buspirone 15 mg tablet 15 mg PO TID #270 tabs 06/10/22 06/19/22 Rx clotrimazole-betamethasone 1 1 applic topical BID 2 weeks #45 06/12/22 06/19/22 Rx %-0.05 % topical cream grams escitalopram oxalate 20 mg tablet 20 mg PO DAILY #90 tabs 06/12/22 06/19/22 Rx (Lexapro) metoprolol succinate 100 mg 100 mg PO DAILY #90 tabs 06/12/22 06/19/22 Rx tablet,extended release 24 hr sodium,potassium,mag sulfates 17.5 See Rx Instructions PO .COMPLEX 06/13/22 06/19/22 Rx gram-3.13 gram-1.6 gram oral soln #354 mL (Suprep Bowel Prep Kit) Patient hx anesthesia problems: none Family hx anesthesia problems: none Results Review: All pre-operative results and documents have been reviewed as part of the pre-operative evaluation. 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 Elevated troponin Fatigue Folic acid deficiency (02/01/21) GI bleeding Hypersomnia Hypertension Hypokalemia Irritable bowel syndrome with diarrhea (~12/04/21) Microscopic hematuria (02/01/21) Mixed hyperlipidemia (02/01/21) Obesity Obesity (BMI 30.0-34.9) Osteoarthritis of both hands Overweight (BMI 25.0-29.9) Primary hypertension Seasonal allergic rhinitis Vitamin B12 deficiency anemia (02/01/21) Family History Family History Mother Patient's mother is , Onset Age: 69 Father Patient's father is , Onset Age: 73 Social History Social History Years smoked: 1 Smoking status: Former smoker Tobacco type: cigarettes Second hand tobacco smoke exposure: No Alcohol intake: current Drinks per week: 1 Alcohol use details: wine occasionally Substance use: current Substance use type: marijuana Living arrangements: with family Gender identity (if verbalized by the patient): Male Sexual Orientation (if Verbalized by the Patient): Straight or Heterosexual Spiritual care concerns: No Anes - Eval Final PreProcedure Day of Procedure 06/27/22 13:08 Patient weight: obese Heart: regular rate and rhythm Lungs: clear to auscultation Airway: Mallampati scale class II Neurological: alert and oriented Last oral intake: >/= 8 hours ASA classification: III Emergent: no Anesthetic plan: proceed Anesthesia type and monitoring: general GIVS a
[2022-06-27 13:45] VITALS: BP 110/64; PULSE 85; RESP 17; O2SAT 95
[2022-06-27 13:55] VITALS: BP 111/69; PULSE 76; RESP 21; O2SAT 98
[2022-06-27 14:05] VITALS: BP 124/81; PULSE 73; RESP 17; O2SAT 98
--- NOTE | 2022-06-27 14:38 | SUR.PHASEII ---
Dr. Sampson notified and aware of positive Helicobacter pylori test result.
--- NOTE | 2022-06-27 15:00 | SUR.PHASEII ---
New Orders on discharge papers reprinted by Dr. Sampson after patient discharged. Patient notified of new orders and to picker tender his prescriptions at his primary pharmacy. Patient verbalized understanding.
== END 2022-06-27 14:15 | disposition home or self-care (01) ==
PROVIDERS: PCP Family Medicine; Visit Provider Internal Medicine Gastroenterology
PROC: 0DJ08ZZ Inspection of Upper Intestinal Tract, Via Natural or Artificial Opening Endoscopic (ICD-10-PCS; CPT 43235; principal; 2022-06-27 13:30)
DX: K62.5 Hemorrhage of anus and rectum (principal); K57.30 Diverticulosis of large intestine without perforation or abscess without bleeding; K64.8 Other hemorrhoids; R10.84 Generalized abdominal pain; I48.91 Unspecified atrial fibrillation; I10 Essential (primary) hypertension; K58.0 Irritable bowel syndrome with diarrhea; E78.2 Mixed hyperlipidemia; F41.9 Anxiety disorder, unspecified; D51.3 Other dietary vitamin B12 deficiency anemia; F32.A Depression, unspecified; Z79.51 Long term (current) use of inhaled steroids; E66.9 Obesity, unspecified; Z68.28 Body mass index [BMI] 28.0-28.9, adult; Z87.891 Personal history of nicotine dependence; F12.90 Cannabis use, unspecified, uncomplicated
CPT/HCPCS: 45378; 43239; 87081; J2704; J7120

== ENCOUNTER 2024-04-28 10:29 | Outpatient (CLI) | payer SELFPAY ==
--- NOTE | ~2024-04-28 | XR_ITS ---
Lumbosacral Spine: AP and lateral views Clinical History: Pain Findings: The normal lordotic curve is maintained. No fracture or subluxation seen. There is advanced degenerative disc narrowing at L5-S1. There is mild to moderate degenerative disc narrowing at L3-L4 and L4-L5. There is advanced facet arthropathy at L4-L5 and L5-S1. There is mild to moderate facet a rthropathy and lumbar spine. The sacroiliac joints are normally outlined. Impression: Moderate degenerative spondylosis overall, as detailed above. Reviewed, dictated and finalized at location M. Impression: Moderate degenerative spondylosis overall, as detailed above.
--- NOTE | ~2024-04-28 | XR_ITS ---
Cervical Spine: AP, lateral, open-mouth views Clinical History: Dysfunctional cervical region Findings: There is mild reversal of the normal cervical lordosis. No fracture or subluxation evident. There is moderate to advanced degenerative disc narrowing at C5-C6 and C6-C7. Anterior fusion noted from C7 to T1. Mild facet arthropathy present. Pre-vertebral soft tissues are unremarkable. Impression: Advanced degenerative disc narrowing at C5-C6 and C6-C7. Mild reversal of the normal cervical lordosis. Anterior fusion from C7 to T1. Reviewed, dictated and finalized at location . Impression: Advanced degenerative disc narrowing at C5-C6 and C6-C7. Mild reversal of the normal cervical lordosis. Anterior fusion from C7 to T1.
== END 2024-04-28 10:30 ==
DX: M99.01 Segmental and somatic dysfunction of cervical region (principal); M99.03 Segmental and somatic dysfunction of lumbar region; M54.42 Lumbago with sciatica, left side; M47.896 Other spondylosis, lumbar region; M47.897 Other spondylosis, lumbosacral region; M50.322 Other cervical disc degeneration at C5-C6 level; M50.323 Other cervical disc degeneration at C6-C7 level; Z98.1 Arthrodesis status
CPT/HCPCS: 72040; 72100

== ENCOUNTER 2024-11-13 17:06 | Emergency (ER) | payer OTHER, SELFPAY ==
[2024-11-13] VITALS (34 sets, daily range): BP systolic 135–207; BP diastolic 78–104; PULSE 58–104; RESP 13–27; TEMP 36.6; O2SAT 94–100
--- NOTE | ~2024-11-13 | XR_ITS ---
EXAMINATION: XR chest 1V portable Exam Date/Time: 11/13/2024 18:14 CDT HISTORY: Lt. sided chest pain x2 days Comparison: 06/19/2021. RESULT: Lines, tubes, and devices: ACDF hardware. Lungs and pleura: Clear. Cardiomediastinal silhouette: Stable. Other: No acute osseous or upper abdominal finding. IMPRESSION: No acute cardiopulmonary process. Reviewed, dictated and finalized at location K.
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
--- OUTSIDE RECORDS SUMMARY | 2024-11-13 17:08 | XMS_ITS | Encounter Summary ---
Author Name [facility] Organization [facility] [place] [place] Address [address] [place] [address] Care Team Providers Care Loss Claim Clerk Name Role Phone HARSHIL JENSEN Primary Care Provider Unavail able Selected Encounter This section includes the information on record at [place] for the Encounter. Date/Time Encounter Type Encounter Description Reason Provider Source Feb 09, 2024 03:00 PM OFFICE O/P NEW MOD 45 MIN OPTOMETRY ICD-10-CM H25.13 Age-related nuclear cataract, bilateral CHIVETTA,FRANCA AGUSTIN IHE Encounter Template Text not used by [place] Assessments - Encounter Diagnoses This section includes the primary and secondary diagnoses documented for the Encounter. Date/Time Primary/Secondary Diagnosis Diagnosis Name Provider Source Feb 09, 2024 03:38 PM PRIMARY Age-related nuclear cataract, bilateral [facility] Feb 09, 2024 03:38 PM SECONDARY Presbyopia [facility] Plan of Treatment: Future Appointments (+ 6 months) and Future Tests (+/- 45 days) The Plan of Treatment section includes future care activities for the patient from all [place] treatmentfacilities. This section includes future appointments and future orders which are active, pending or scheduled. Future Appointments This section includes appointments that were scheduled to occur 6 months from the date of the Encounter, up to a maximum of 20 appointments. The data comes from all [place] treatment facilities. Appointment Date/Time Appointment Type Appointme nt Facility Name Feb 10, 2024 10:00 AM AMBULATORY - MEDICINE [facility] Feb 29, 2024 02:00 PM AMBULATORY - PSYCHIATRY [facility] Apr 18, 2024 01:00 PM AMBULATORY - PSYCHIATRY [facility] Apr 22, 2024 10:30 AM AMBULATORY - PSYCHIATRY [facility] May 30, 2024 10:00 AM AMBULATORY - NONE [facility] Jul 13, 2024 10:00 AM AMBULATORY - NONE [facility] Jul 25, 2024 10:30 AM AMBULATORY - PSYCHIATRY [facility] Encounter Notes: All associated encounter notes This section contains the clinical notes associated to the Encounter. Date/Time Encounter Note(s) Provider Source Feb 09, 2024 02:48 PM OPTOMETRY NOTE: LOCAL TITLE: OPTOMETRY NOTE STANDARD TITLE: OPTOMETRY NOTE DATE OF NOTE: FEB 09, 2024@14:48 ENTRY DATE: FEB 09, 2024@14:48:39 AUTHOR: FRANCA CURTIS EXP COSIGNER: URGENCY: STATUS: COMPLETED Last seen initial [facility] exam; no JLV notes Reason for visit: CC: 1. Lost glasses - functions okay without correction - would like new DVO glasses - Vision is stable Ocular meds: none Ocular ROS: (-)trauma/laser/surgery Family OcHX: (-) blindness (-) glaucoma (-) AMD (-) RD Cardiovascular ROS: no change from problem & medication lists CPRS Problem list, medications and allergies reviewed: CPRS Serology for Diabetes GLUCOSE 94 mg/dL 03/31/2023 13:50 HGA1C 6.4 H % 03/31/2023 13:50 Cardiovascular BP: 129/71 (11/05/2023 11:33) Pulse: 80 (11/05/2023 11:33) Neuro: Orientation: Normal Psych: Mood/Affect: Normal Depression/suicide ideation: NO VISUAL ACUITY Without correction Distance Visual Acuity OD 20/30+ OS 20/40- Pupils PERRL OU (-)APD Confrontation: FTFC OU Extra-Ocular Muscles Full OU (-)pain (-)diplopia Externals/adnexa: Unremarkable OU AutoRefraction: 02/09/24 OD -0.50 -1.00 x090 OS -1.00 -0.50 x120 Refraction 02/09/24 OD: -0.50 -0.75 x090 20/20 OS: -1.00 -0.75 x105 20/20 Add: +2.25 SLIT LAMP EXAMINATION Lids/Lashes/Lacrimal Mild MGD OU Conjunctiva/Sclera tr injection OU Cornea Clear OU Ant Chamber Deep and quiet OU Iris Normal, (-)NVI OU Lens Tr NS cataract OU Intraocular Pressures (Goldmann) 1 gtt fluress Date OD OS Time 02/09/24 15 14 1509 RETINAL EVALUATION 1 phenyleph 2.5%, 1 trop 1% OU DFE Dilated retinal exam Optic Nerve OD: 0.35 CDR Flat, pink, distinct (-)NVD OS: 0.35 CDR Flat, pink, distinct (-)NVD Vessels: 2/3 OU Macula: OD: Flat, intact (-)CSME OS: Flat, intact (-)CSME Posterior Pole: OD: (-)hemes (-)CWS (-)NVE OS: (-)hemes (-)CWS (-)NVE Periphery: OD: (-)holes, tears, RDs 360 OS: (-)holes, tears, RDs 360 Vitreous: No PVD OU Obdulio Mart, Optometry Coal [employer] Supervisor participated in the care of this under my supervision. I personally examined the patient and provided the following assessment and plan: Assessment/Plan 02/09/24 1. Cataracts OU not yet visually significant Defer cataract extraction until signs/sx indicate monitor 2. 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 pt on all findings RTC 1-2 years via direct scheduling or sooner prn /garcia/ FRANCA CURTIS, [facility] Staff Physician, Optometry Signed: 02/09/2024 15:43 FRANCA CURTIS [facility]
--- OUTSIDE RECORDS SUMMARY | 2024-11-13 17:08 | XMS_ITS ---
Author Name [facility] [place] Organization [facility] [place] Address [address] [place] [address] Care Team Providers Care Web Site Designer Name Role Phone HARSHIL JENSEN Primary Care Provider Unavail able Selected Encounter This section includes the information on record at [place] for the Encounter. Date/Time Encounter Type Encounter Description Reason Provider Source Jul 25, 2024 10:30 AM OFFICE O/P EST MOD 30 MIN [facility] CLINIC - IND ICD-10-CM F43.23 Adjustment disorder with mixed anxiety and depressed mood BALJINDER ENCISO Encounter Template Text not used by [place] Assessments - Encounter Diagnoses This section includes the primary and secondary diagnoses documented for the Encounter. Date/Time Primary/Secondary Diagnosis Diagnosis Name Provider Source Jul 25, 2024 10:59 AM PRIMARY Adjustment disorder with mixed anxiety and depressed mood BALJINDER ENCISO [facility] Plan of Treatment: Future Appointments (+ 6 months) and Future Tests (+/- 45 days) The Plan of Treatment section includes future care activities for the patient from all [place] treatmentfacilities. This section includes future appointments and future orders which are active, pending or scheduled. Future Appointments This section includes appointments that were scheduled to occur 6 months from the date of the Encounter, up to a maximum of 20 appointments. The data comes from all [place] treatment facilities. Appointment Date/Time Appointment Type Appointme nt Facility Name Oct 25, 2024 09:30 AM AMBULATORY - PSYCHIATRY [facility] Social History: Smoking Status (Most current) and Tobacco Use (All prior to encounter date) This section includes the most current, and the historical, smoking and tobacco- related health factors from the [place] facility where the Encounter took place. Current Smoking Status This section includes the most current smoking, or tobacco-related health factor, from the [place] facility where the Encounter took place. Date/Time Current Smoking Status Comment Irene ity Feb 29, 2024 09:46 AM [place]-TOBACCO FORMER USER [facility] Tobacco Use History This section includes a history of the smoking, or tobacco-related health factors, that were collected on or before the date of the Encounter. The data comes from the [place] facility where the Encounter took place. Date/Time Smoking Status/Tobacco Use Comment F acamelia Feb 29, 2024 09:46 AM [place]-TOBACCO QUIT 15 YRS OR MORE [facility] Encounter Notes: All associated encounter notes This section contains the clinical notes associated to the Encounter. Date/Time Encounter Note(s) Provider Source Jul 25, 2024 10:31 AM PSYCHIATRY NOTE: LOCAL TITLE: PSYCHIATRY [facility] STANDARD TITLE: PSYCHIATRY NOTE DATE OF NOTE: JUL 25, 2024@10:31 ENTRY DATE: JUL 25, 2024@10:31:07 AUTHOR: BALJINDER ENCISO COSIGNER: URGENCY: STATUS: COMPLETED [facility] - MEDICATION MANAGEMENT Name..................OWENSTAMMY ENG DYLON Age...................54 Sex...................MALE SSN...................[id number] Service Connection....Service Connected: Yes (100%) THIS WAS A [facility] APPOINTMENT and the below were [...] DAY NEEDED *MAY CAUSE Expr:03-01-25 DROWSINESS* 3) MELOXICAM 15MG TAB Qty: 90 for 90 days ACTIVE Issu:07-24-23 Sig: TAKE ONE TABLET BY MOUTH ONCE A Refills: 1 Last:03-13-24 DAY FOR PAIN Expr:07-24-24 I reviewed medications and reconciled any that were incorrect PROBLEM LIST: 1) LUMBAGO 2) Posttraumatic stress disorder 3) Anxiety 4) Exposure to potentially hazardous substance VITAL SIGNS: Deferred 2/2 [facility] Patient Weight History - Last Four 1. [...] Endocrine................No Hematologic/Lymphatic....No Allergies/Immune.........No BRIEF SUMMARY OF PREVIOUS MH HISTORY: BRIEF SUMMARY OF PREVIOUS MH HISTORY: (INITIAL CONSULT 02/29/24) I reviewed 's chart in CPRS for 40 minutes prior to this visit. Mr. Owens is a 54 year old 30%sc for PTSD presenting to [facility] to establish care. His first contact w [place] psychiatry was [facility] where he was seen briefly by Dr. [...] He was ultimately arrested and put in long-term for a day. He lived in his camper for a while but they are now living together again and getting along for the moment. No longer working, states he was at [facility] when the police were called and his preacher was there, he felt ashamed. Has been sad about the state of his marraige, the loss of his job. Doesn't like going back and forth between the house and trailer. for 23 years, wants to work it out i'm a good Alevism and we have God in our marraige [...] PAST PSYCHIATRIC HISTORY: Inpatient: none [facility] PAST PSYCH MED TRIALS: Buspar Lexapro Last [facility] visit 04/22/24: tells me things have gotten better as [...] it off when she put me in long-term and then lost it, she bought him a new one and they are both motivated to make things work. Denies SI. Missed his appointment with Dr. Marte, plans to be at the next visit. HPI/COMPLAINTS/PROBLEMS tells me things are going ok actually, we have a new granddaughter, born last month . Will see granddaughter for the first time for Thanksgiving later this week, she lives in [place]. Things at home are going well, he's getting along well with his and they are continuing to work on things. Feels that she seems to have a better understanding of what he's going through and she's been far more supportive. No ETOH since last visit. Commended him on this. Overall doing well, denies SI, no recent mood symptoms. ANY MEDICATION SIDE EFFECT....No APPETITE.................... ..Good SLEEP....................... [...] harm to self or others is low. buttermaker helper risk of harm to self or others is low. Pt does not meet criteria for involuntary committment. Pt will benefit from ongoing outpatient mental health treatment. Pt provided w/contact information for machine sign writer, clinic and crisis line. Advised to call [...] as appropriate -RTC in 3 months LAST MH TREATMENT PLAN CREATED/RENEWED: 02/29/24 LAST COLUMBIA SUICIDE SCREEN CREATED: 02/29/24 LAST AIMS EVAL PERFORMED: N/A LAST ANTIPSYCHOTIC MEDICATION LABS ORDERED/REVIEWED: N/A /garcia/ BALJINDER ENCISO Staff Psychiatrist, PhD [facility] Signed: 07/25/2024 10:59 BALJINDER ENCISO [facility]
--- OUTSIDE RECORDS SUMMARY | 2024-11-13 17:08 | XMS_ITS | Encounter Summary ---
Author Name [facility] [place] Organization [place] Address [address] [place] [address] Care Team Providers Care Automobile Service Advisor Name Role Phone HARSHIL JENSEN Primary Care Provider Unavail able Selected Encounter This section includes the information on record at [place] for the Encounter. Date/Time Encounter Type Encounter Description Reason Provider Source Oct 25, 2024 09:30 AM OFFICE O/P EST MOD 30 MIN [facility]ENTAL [facility] CLINIC - IND ICD-10-CM F43.10 Post-traumatic stress disorder, unspecified BALJINDER ENCISO Encounter Template Text not used by [place] Assessments - Encounter Diagnoses This section includes the primary and secondary diagnoses documented for the Encounter. Date/Time Primary/Secondary Diagnosis Diagnosis Name Provider Source Oct 25, 2024 02:12 PM PRIMARY Post-traumatic stress disorder, unspecified BALJINDER ENCISO Monika [facility]CKET[facility] Oct 25, 2024 02:12 PM SECONDARY Anxiety disorder, unspecified BALJINDER ENCISO [facility] Plan of Treatment: Future Appointments (+ 6 months) and Future Tests (+/- 45 days) The Plan of Treatment section includes future care activities for the patient from all [place] treatmentfacilities. This section includes future appointments and future orders which are active, pending or scheduled. Future Appointments This section includes appointments that were scheduled to occur 6 months from the date of the Encounter, up to a maximum of 20 appointments. The data comes from all [place] treatment facilities. Appointment Date/Time Appointment Type Appointme nt Facility Name January 24, 2025 10:00 AM AMBULATORY - PSYCHIATRY [facility] Social History: Smoking Status (Most current) and Tobacco Use (All prior to encounter date) This section includes the most current, and the historical, smoking and tobacco- related health factors from the [facility] where the Encounter took place. Current Smoking Status This section includes the most current smoking, or tobacco-related health factor, from the [place] facility where the Encounter took place. Date/Time Current Smoking Status Comment Irene ity Feb 29, 2024 09:46 AM VA-TOBACCO FORMER USER [facility] Tobacco Use History This section includes a history of the smoking, or tobacco-related health factors, that were collected on or before the date of the Encounter. The data comes from the [facility] where the Encounter took place. Date/Time Smoking Status/Tobacco Use Comment F karis Feb 29, 2024 09:46 AM [place]-TOBACCO QUIT 15 YRS OR MORE [facility] Encounter Notes: All associated encounter notes This section contains the clinical notes associated to the Encounter. Date/Time Encounter Note(s) Provider Source Oct 25, 2024 09:09 AM PSYCHIATRY NOTE: LOCAL TITLE: PSYCHIATRY [facility] STANDARD TITLE: PSYCHIATRY NOTE DATE OF NOTE: OCT 25, 2024@09:09 ENTRY DATE: OCT 25, 2024@09:09:53 AUTHOR: BALJINDER ENCISOIGNER: URGENCY: STATUS: COMPLETED [facility] - MEDICATION MANAGEMENT Name..................TAMMY OWENS Age...................54 Sex...................MALE SSN...................[id number] Service Connection....Service Connected: Yes (100%) THIS WAS A [facility] APPOINTMENT and the below were [...] Last Fill Active Outpatient Medications Refills Expiration = 1) ESCITALOPRAM OXALATE 20MG TAB Qty: 135 for ACTIVE Issue: 02/29/24 90 days Sig: TAKE ONE AND ONE-HALF TABLETS Refills: 1 Last : 09/21/24 BY MOUTH ONCE A DAY Expr : 03/01/25 Indication: FOR ANXIETY 2) HYDROXYZINE HCL 10MG TAB Qty: 270 for 90 ACTIVE Issue: 02/29/24 days Sig: TAKE ONE TABLET BY MOUTH THREE Refills: 1 Last : 09/21/24 TIMES A DAY NEEDED *MAY CAUSE DROWSINESS* Expr : 03/01/25 Indication: FOR ANXIETY I reviewed medications and reconciled any that were incorrect PROBLEM LIST: 1) LUMBAGO 2) Posttraumatic stress disorder 3) Anxiety 4) Exposure to potentially hazardous substance VITAL SIGNS: Deferred 2/2 [facility] Patient Weight History - Last Four 1. 191.2 lbs. / 86.7 kg. on NOV 05, 2023@11:33:47 2. 201.2 lbs. / 91.3 kg. on JUL 24, 2023@14:02:00 3. 207.0 lbs. / 93.9 kg. on MAR 31, 2023@12:30:11 LAB VALUES: LAB CHEMISTRY & HEMATOLOGY No data available LAB MICROBIOLOGY No data available REVIEW OF SYSTEMS: Negative 13 system review except as noted below or detailed in the HPI/interval history above. Constitutional...........No Eyes.....................No Ears/Nose/Mouth/Throat...No Cardiovascular...........No Respiratory..............No Gastrointestinal.........No Genitourinary............No Muscular.................No Integumentary............No Neurological.............No Endocrine................No Hematologic/Lymphatic....No Allergies/Immune.........No BRIEF SUMMARY OF PREVIOUS MH HISTORY: (INITIAL CONSULT 02/29/24) I reviewed 's chart in CPRS for 40 minutes prior to this visit. Mr. Owens is a 54 year old 30%sc for PTSD presenting to [facility] to establish care. His first contact w [place] psychiatry was [facility] where he was seen briefly by Dr. [...] He was ultimately arrested and put in longterm for a day. He lived in his camper for a while but they are now living together again and getting along for the moment. No longer working, states he was at [facility] when the police were called and his preacher was there, he felt ashamed. Has been sad about the state of his marraige, the loss of his job. Doesn't like going back and forth between the house and trailer. for 23 years, wants to work it out i'm a good Methodist and we have God in our marraige [...] PAST PSYCHIATRIC HISTORY: Inpatient: none [facility] PAST PSYCH MED TRIALS: Buspar Lexapro Last [facility] visit 07/25/24: tells me things are going ok actually, we have a new granddaughter, born last month . Will see granddaughter for the first time for Thanksgiving later this week, she lives in [place]. Things at home are going well, he's getting along well with his and they are continuing to work on things. Feels that she seems to have a better understanding of what he's going through and she's been far more supportive. No ETOH since last visit. Commended him on this. Overall doing well, denies SI, no recent mood symptoms. HPI/COMPLAINTS/PROBLEMS [place] tells me it's been kind of a struggle, my and I decided to call it quits, mostly for her own mental health . Tells me it's been hard, an emotional rollercoaster up and down . [place] actively trying to stay focused on positive things, his relationship with God, and what he thinks God wants him to do. Cries at times in the morning but by no means I have no intentions of hurting myself, i'll put that out there real fast . and kids moved out, got their own place, he finds himself lonely at times however he has recently reunited with a childhood friend who has been a great support. Was seeing Dr. Marte, offered to get him reconnected with care but he feels he is well enough supported by a group at [facility]. Regarding ETOH, he states i'll have a drink every once in a while, before it was a problem for me but I can control it right now . Tells me he's no longer using it as an escape like he once did I bought a 12 pack 2 weeks ago and and 6 of them are still in the fridge . Taking his meds as prescribed, agreed to continue as prescribed for now as he works through the divorce, he feels this is external and does not want to adjust meds. Feels supported, happy with meds, let him vent most of visit about the divorce and the relationship, he plans to reach out if he needs to be seen earlier than 3 months. ANY MEDICATION SIDE EFFECT....No APPETITE.................... ..Good SLEEP....................... [...] harm to self or others is low. shelter risk of harm to self or others is low. Pt does not meet criteria for involuntary committment. Pt will benefit from ongoing outpatient mental health treatment. Pt provided w/contact information for telegraphic typewriter operator chief, clinic and crisis line. Advised to call [...] ENCISO Staff Psychiatrist, PhD [facility] Signed: 10/25/2024 14:12 BALJINDER ENCISO [facility]
--- OUTSIDE RECORDS SUMMARY | 2024-11-13 17:09 | XMS_ITS | Referral Summary ---
Author Organization [facility] C Address [address] [place] [address] Care Team Providers Care Radiator Mechanic Name Role Phone [facility], Dank Melo Primary Care Pro vider Allergies Active Allergy Reactions Criticality Noted Date Comments Iodinated Contrast Media Swelling Medium 10/12/2018 Medications losartan (COZAAR) 25 mg tablet Take 25 mg by mouth outcome analyst before breakfast Active busPIRone (BUSPAR) 15 mg tabletIndicatio ns:Generalized Anxiety Disorder Take 15 mg by mouth outcome analyst before breakfast Active clomiPHENE (CLOMID) 50 mg tablet Take 25 mg by mouth outcome analyst before breakfast Active multivitamin tablet,chewable Take 1 tablet/chew tab by mouth daily before dinner Active ascorbic acid, vitamin C, 250 mg tablet,chewable Take 1 tablet/chew tab by mouth daily before dinner Active cholecalciferol (VITAMIN D-3) 1,000 unit tablet Take 5,000 Units by mouth daily Active Active Problems Problem Noted Date Diagnosed Date Status post cervical spinal fusion 2019 Assessment & Plan (2019 2:44 PM CDT): Mr. Garza is doing well overall with symptoms resolved following C7-T1 ACDF. PLAN: 1. Increased activity as tolerated. 2. After 6 weeks, patient may resume NSAIDs, may increase activity as tolerated. WORK STATUS: 1. RETURNED TO WORK: December 24, 2018 with no restrictions FOLLOW UP APPT: With Dr. Case in 4.5 months with Flexion/Extension Cervical spine films and Vitamin D level. HNP (herniated nucleus pulposus), cervical 10/19 Overview (10/19/2018): Added automatically from request for surgery [id number] 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 region 10/12/2018 Overview (10/12/2018): Assessment & Plan (10/12/2018 2:09 PM CROP FARM HELPER): Mr. Garza has a right C8 radiculopathy with motor weakness. He he has the disc herniation with severe compression of the traversing C8 nerve root on the right. We discussed all options including medications therapy injections and surgery. It is unlikely that he is going to see improvement without surgical decompression. I have offered him C7-T1 anterior cervical decompression and fusion. We discussed discussed risks, alternatives and benefits to surgery with risks including, but not limited to, bleeding, infection, coma, , heart attack, stroke, paralysis, loss of vision, CSF leak, spinal instability requiring future operations, failure to relieve symptoms, bowel bladder, dysfunction and sexual dysfunction. We discussed increased risks of anterior cervical surgery including difficulty swallowing and damaged damage to the recurrent laryngeal nerve causing vocal cord paralysis and hoarseness of voice. He understands and wishes to proceed. He understands that damage to the recurrent laryngeal nerve is increased at the C7-T1 level. He also understands that occasionally we were not able to reach the C7-T1 level from an anterior approach which is determined intraoperatively and that we would then changed to a posterior cervical laminoforaminotomy on the right. Hemospermia 05/18/2009 Social History Tobacco Use Types Packs/Day Years Used Date Smoking Tobacco: Former Cigarettes 1 7 - 1988 Smokeless Tobacco: Never Comments:4-5 cigs/day Alcohol Use Standard Drinks/Week Comments No 0 (1 standard drink = 0.6 oz pur e alcohol) PHQ-2 Answer Date Recorded PHQ-2 Score 3 04/23/2019 Personal Safety Answer Date Recorded Have you ever been in or are you currently in a harmful physical or emotional relationship or is someone making you feel afraid or unsafe? 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 Not on file Not on file Not on file Last Filed Vital Signs Vital Sign Reading Time Taken Comments Blood Pressure 175/103 01/13/2024 10:46 AM CDT Pulse 58 01/13/2024 10:46 AM CDT Temperature 36.9 C (98.4 F) 11/26/2018 5:25 PM CDT Respiratory Rate 16 01/13/2024 10:46 AM CDT Oxygen Saturation 98% 01/13/2024 10:46 AM CDT Inhaled Oxygen Concentration - - Weight 103.4 kg (228 lb) 2019 2:29 PM CDT Height 180 cm (5' 10.87 ) 11/26/2018 4:08 PM CDT Body Mass Index 31.92 11/26/2018 4:08 PM CDT Plan of Treatment Not on file Medical Devices Implanted Type Area Customer Insight Analyst Device Identifier Shelf Expiration Date Model / Serial / Lot Core Link Anodyne 12mm Level 1 Spine Cervical Anterior Plate Bone - [id number] Implanted:Qty: 1 on 11/26/2018 by Corona Case MD at [facility] Plate N/A: Spine Cervical Core Link / / Core Link Anodyne 4mm 14mm Variable Angle Self Tap Spine Cervical Screw - [id number] Implanted:Qty: 4 on 11/26/2018 by Corona Case MD at [facility] Screw N/A: Spine Cervical Core Link / / [employer] 700-025 I Factor Allograft Putty Syringe Graft 2.5cc Bone - [id number] Implanted:Qty: 1 on 11/26/2018 by Corona Case MD at [facility] N/A: Cervical-Tho racic Spine [employer] 08/30/2021 700-025 / / [id number] [employer] 3d Cervical [id number] 7 Deg - [id number] Implanted:Qty: 1 on 11/26/2018 by Corona Case MD at [facility] N/A: Cervical-Tho racic Spine Core Link [id number] 04/15/2023 [id number] / [id number] [place] [address] [facility] Advance Directives For more information, please contact: [phone] * Full Code (Latest Code Status on File) Date Activated Date Inactivated Comments 11/26/2018 4:08 PM 11/26/2018 10:37 PM Care Teams Radiator Mechanic Relationship Specialty Start Date End Date [facility], Dank Melo [address] [place] [address] PCP - General Genetics 12/21/23
--- OUTSIDE RECORDS SUMMARY | 2024-11-13 17:09 | XMS_ITS | Encounter Summary ---
Author Name [facility] [place] Organization [place] Address [address] [place] [address] Care Team Providers Care Peer Specialist Name Role Phone HARSHIL JENSEN Primary Care Provider Unavail able Selected Encounter This section includes the information on record at [place] for the Encounter. Date/Time Encounter Type Encounter Description Reason Pro vider Source January 08, 2024 10:43 AM Outpatient Encounter COMMUNITY CARE CONSULT I[facility] Encounter Template Text not used by [place] Plan of Treatment: Future Appointments (+ 6 months) and Future Tests (+/- 45 days) The Plan of Treatment section includes future care activities for the patient from all [place] treatmentfacilities. This section includes future appointments and future orders which are active, pending or scheduled. Future Appointments This section includes appointments that were scheduled to occur 6 months from the date of the Encounter, up to a maximum of 20 appointments. The data comes from all [place] treatment facilities. Appointment Date/Time Appointment Type Appointme nt Facility Name Feb 09, 2024 03:00 PM AMBULATORY - SURGERY [facility] Feb 10, 2024 10:00 AM AMBULATORY - MEDICINE [facility] Feb 29, 2024 02:00 PM AMBULATORY - PSYCHIATRY [facility] Apr 18, 2024 01:00 PM AMBULATORY - PSYCHIATRY [facility] Apr 22, 2024 10:30 AM AMBULATORY - PSYCHIATRY [facility] May 30, 2024 10:00 AM AMBULATORY - NONE [facility] Encounter Notes: All associated encounter notes This section contains the clinical notes associated to the Encounter. Date/Time Encounter Note(s) Provider Source January 08, 2024 10:43 AM NONVA NOTE: LOCAL TITLE: COMMUNITY CARE-CARE COORDINATION PLAN NOTE [address] STANDARD TITLE: NONVA NOTE DATE OF NOTE: JANUARY 08, 2024@10:43 ENTRY DATE: JANUARY 08, 2024@10:44:04 AUTHOR: CRUZ LARSON EXP COSIGNER: URGENCY: STATUS: COMPLETED Orthopedic notes recevied. POC-follow up after MRI and EMG studies. /garcia/ CRUZ LARSON BSN RN REGISTERED NURSE Signed: 01/08/2024 10:44 CRUZ LARSON [facility]
--- OUTSIDE RECORDS SUMMARY | 2024-11-13 17:09 | XMS_ITS | Clinical Summary ---
Author Organization [facility] Address [facility] [address] Care Team Providers Care Latin Teacher Name Role Phone Non-Staff, Provider Primary Care Provider Tracy stearns Allergies Active Allergy Reactions Criticality Noted Date Comments Iodinated Contrast Media Shortness of Breath,Swelling High 10/12/2018 Medications cholecalciferol (VITAMIN D-[address]) 25 mcg Tab tablet Take 5 tablets (5,000 Units total) by mouth daily. Active Social History Tobacco Use Types Packs/Day Years Used Date Smoking Tobacco: Never Smokeless Tobacco: Never Tobacco Cessation:Counseling Given: Not Answered Alcohol Use Standard Drinks/Week Comments Never 0 (1 standard drink = 0.6 oz pur e alcohol) Sex and Gender Information Value Date Recorded Sex Assigned at Not on file Legal Sex Male 6:45 PM CDT Gender Identity Not on file Sexual Orientation Not on file Last Filed Vital Signs Vital Sign Reading Time Taken Comments Blood Pressure 166/87 08/07/2023 7:22 AM TECHNICAL TRAINING MANAGER Pulse 63 08/07/2023 7:22 AM TECHNICAL TRAINING MANAGER Temperature 36.8 C (98.2 F) 08/07/2023 7:22 AM TECHNICAL TRAINING MANAGER Respiratory Rate 18 08/07/2023 7:22 AM TECHNICAL TRAINING MANAGER Oxygen Saturation 100% 08/07/2023 7:22 AM TECHNICAL TRAINING MANAGER Inhaled Oxygen Concentration - - Weight 92.1 kg (203 lb) 08/07/2023 7:22 AM TECHNICAL TRAINING MANAGER Height 182.9 cm (6') 08/07/2023 7:22 AM TECHNICAL TRAINING MANAGER Body Mass Index 27.53 08/07/2023 7:22 AM TECHNICAL TRAINING MANAGER Plan of Treatment Health Maintenance Due Date Last Done Comments Colorectal Cancer Screening Colonoscopy (10 Years) 1968 Annual Physical 01/04/1971 Hepatitis C 01/04/1986 DTaP, Tdap and Td Vaccines ( 1 - Tdap) 01/04/1987 Hepatitis B Vaccines (1 of 3 - 19+ 3-dose series) 01/04/1987 Zoster Vaccines (1 of 2) 01/04/2018 COVID-19 Vaccine ( - 2023-2 5 season) 2024 Influenza Adult (#1) 2024 Meningococcal B Vaccine Aged Out No l onger eligible based on patient's age to complete this topic Meningococcal Vaccine Aged Out No dima rose marie eligible based on patient's age to complete this topic Pneumococcal Vaccine: Pediat rics (0 to 5 Years) and At-Risk Patients (6 to 64 Years) Aged Out No longer eligible b ased on patient's age to complete this topic RSV Immunizations Under 20 Months Aged Out No longer eligible based on patient's age to complete this topic Insurance [facility] Care Teams Latin Teacher Relationship Specialty Start Date End Date Non-Staff, Provider PCP - General UNKNOWN PHYSICIAN SPECIALTY 07/30/23
--- OUTSIDE RECORDS SUMMARY | 2024-11-13 17:09 | XMS_ITS | Continuity of Care Document ---
Author Name [facility] Organization [facility] Care Team Providers Care Daycare Assistant Name Role Phone [facility] Unavailable Unavailable Problems Combined list of problems from Department of Defense and Veterans Affairs facilities. It does not include entries that were removed or entered in error. Problem Status Onset Date Problem Type Date of Resolution Comments Source Anxiety Active Condition [facility] Exposure to potentially hazardous substance Active Condition [facility] [place] Active Condition [facility] Posttraumatic stress disorder Active Condition [facility] Diagnosis: ICD-10-CM F43.10 Post-traumatic stress disorder, unspecified Active Diagnosis [facility] Diagnosis: ICD-10-CM F43.23 Adjustment disorder with mixed anxiety and depressed mood Active Diagnosis [facility] Diagnosis: ICD-10-CM F33.0 Major depressive disorder, recurrent, mild Active Diagnosis [facility] Diagnosis: ICD-10-CM F43.12 Post-traumatic stress disorder, chronic Active Diagnosis [facility] Diagnosis: ICD-10-CM F41.9 Anxiety disorder, unspecified Active Diagnosis [facility] Diagnosis: ICD-10-CM H25.13 Age-related nuclear cataract, bilateral Active Diagnosis [facility] Diagnosis: ICD-10-CM M77.02 Medial epicondylitis, left elbow Active Diagnosis [facility] Diagnosis: ICD-10-CM M54.50 Low back pain, unspecified Active Diagnosis [facility] Diagnosis: ICD-10-CM M79.643 Pain in unspecified hand Active Diagnosis [facility] Diagnosis: ICD-10-CM G89.29 Other chronic pain Active Diagnosis [facility] Medications Combined list of outpatient medications from Department of Defense and [facility] Affairs facilities.Medications provided include 1) outpatient medications from the last 15 months, and 2) patient-reported medications. Medication Details Route Status Patient Instructions Prescription Expires Prescription Number Last Dispense Date Ordering Provider Order Date Order Qty Source ESCITALOPRA M OXALATE 20MG TAB TAKE ONE AND ONE-HALF TABLETS BY MOUTH ONCE A DAY ORAL ACTIVE 03/01/2025 [id number] SHAYAN ENCISO 2023 135 [facility] HYDROXYZINE HCL 10MG TAB TAKE ONE TABLET BY MOUTH THREE TIMES A DAY NEEDED *MAY CAUSE DROWSINE SS* ORAL ACTIVE 03/01/2025 [id number] 5 SHAYAN ENCISO 2023 270 [facility] IRBESARTAN 300MG TAB TAKE ONE TABLET BY MOUTH ONCE A DAY FOR HIGH BLOOD PRESSURE ORAL 03/31/2024 [id number] ME HÉCTOR TTISA 2022 90 [facility] MELOXICAM 15MG TAB TAKE ONE TABLET BY MOUTH ONCE A DAY FOR PAIN ORAL 07/24/2024 [id number] ME HÉCTOR TTISA 2022 90 [facility] ROSUVASTATI N CA 20MG TAB TAKE ONE-HALF TABLET BY MOUTH EVERY EVENING FOR HIGH CHOLESTE ROL ORAL 04/02/2024 [id number] ME HÉCTOR TTISA 2022 45 [facility] Allergies, Adverse Reactions, Alerts Combined list of allergies from Department of Defense and Veterans Affairs facilities. It does not include entries that were removed or entered in error. Substance Category Reaction Severity Reaction type Status Date Reported Comments Source IODINATED INTRAVASC CONTRAST Propensity to adverse reactions to drug (finding) Dyspnea SEVERE active 3 [facility] Results Combined list of recent chemistry, hematology and other laboratory results from Department of Defense and Veterans Affairs, ranging from 15 months to all on record, depending upon the facility. Order Name Results Value Reference Range Date Interpretation Specimen Comments Source RAPID PLASMA REAGIN (RPR) REAGIN AB [PRESENCE] IN SERUM BY RPR NR 04/21 Specimen Type: SERUM No comment entered. Ordering Provider: CLARENCE ANAYA CON Report Released Date/Time: Mar 31, 2023 01:10 PM Reporting Lab: [facility] [address] [place] [phone] Performing Lab: [facility] [address] [place] [phone] [facility] TRICHOMON PCR (STL) TRICHOMONAS VAGINALIS RRNA [PRESENCE] IN URINE BY LEDY WITH PROBE DETECTION Not Detected 04/21 Specimen Type: URINE Comment: Qualitative real-time PCR test to detect Trichomonas vaginalis genomic DNA. A negative result does not preclude infection with the agent(s) tested and should not be used as the sole basis for treatment or other patient management decisions. If negative, but symptoms persist, consider re-testing. A positive test does not necessarily indicate the presence of viable organisms. All results must be combined with clinical observation s, patient history, and epidemiolog ical information for final interpretat ion. Trichomonas testing on male urine was developed and its performance characteris tics determined by the [facility]. It has not been cleared or approved by the [place] Food and Drug Administrat ion (FDA). Ordering Provider: CLARENCE ANAYA CON Report Released Date/Time: Apr 21, 2023 09:27 AM Reporting Lab: [facility] [address] [facility] [phone] Performing Lab: [facility] [address] [place] [phone] [facility] BASIC METABOLIC PANEL CREATININE [MASS/VOLUM E] IN SERUM OR PLASMA 0.83 mg/dL 0.7 - 1.3 03/31 Specimen Type: PLASMA Comment: No hemolysis noted. Ordering Provider: CLARENCE ANAYA CON Report Released Date/Time: Mar 31, 2023 01:10 PM Reporting Lab: [facility] [address] [facility] [phone] Performing Lab: [facility] [address] [facility] [address] [facility] BASIC METABOLIC PANEL UREA NITROGEN [MASS/VOLUM E] IN SERUM OR PLASMA 9 mg/dL 9 - 25 08/01 /2023 Specimen Type: PLASMA Comment: No hemolysis noted. Ordering Provider: CLARENCE ANAYA CON Report Released Date/Time: Mar 31, 2023 01:10 PM Reporting Lab: [facility] [address] [place] [phone] Performing Lab: [facility] [address] [place] [phone] [facility] BASIC METABOLIC PANEL GLUCOSE [MASS/VOLUM E] IN SERUM OR PLASMA 94 mg/dL 72 - 99 03/31 Specimen Type: PLASMA Comment: No hemolysis noted. Ordering Provider: CLARENCE ANAYA CON Report Released Date/Time: Mar 31, 2023 01:10 PM Reporting Lab: [facility] [address] [place] [phone] Performing Lab: [facility] [address] [place] [phone] [facility] BASIC METABOLIC PANEL SODIUM [MOLES/VOLU ME] IN SERUM OR PLASMA 138 meq/L 136 - 145 03/31 Specimen Type: PLASMA Comment: No hemolysis noted. Ordering Provider: CLARENCE ANAYA CON Report Released Date/Time: Mar 31, 2023 01:10 PM Reporting Lab: [facility] [address] [place] [phone] Performing Lab: [facility] [address] [place] [phone] [facility] BASIC METABOLIC PANEL POTASSIUM [MOLES/VOLU ME] IN SERUM OR PLASMA 4.0 meq/L 3.5 - 5 03/31 Specimen Type: PLASMA Comment: No hemolysis noted. Ordering Provider: CLARENCE ANAYA CON Report Released Date/Time: Mar 31, 2023 01:10 PM Reporting Lab: [facility] [address] [place] [phone] Performing Lab: [facility] [address] [place] [phone] [facility] BASIC METABOLIC PANEL CHLORIDE [MOLES/VOLU ME] IN SERUM OR PLASMA 105 meq/L 98 - 107 03/31 Specimen Type: PLASMA Comment: No hemolysis noted. Ordering Provider: CLARENCE ANAYA CON Report Released Date/Time: Mar 31, 2023 01:10 PM Reporting Lab: [address] [phone] Performing Lab: [address] [phone] [place] [address] BASIC METABOLIC PANEL CARBON DIOXIDE, TOTAL [MOLES/VOLU ME] IN SERUM OR PLASMA 26 meq/L 22 - 31 03/31 Specimen Type: PLASMA Comment: No hemolysis noted. Ordering Provider: CLARENCE ANAYA CON Report Released Date/Time: Mar 31, 2023 01:10 PM Reporting Lab: [address] [address] Performing Lab: [address] [phone] [place] [address] BASIC METABOLIC PANEL CALCIUM [MASS/VOLUM E] IN SERUM OR PLASMA 9.5 mg/dL 8.4 - 10.4 03/31 Specimen Type: PLASMA Comment: No hemolysis noted. Ordering Provider: CLARENCE ANAYA CON Report Released Date/Time: Mar 31, 2023 01:10 PM Reporting Lab: [address] [address] Performing Lab: [address] [address] [facility] BASIC METABOLIC PANEL GLOMERULAR FILTRATION RATE/1.73 SQ M.PREDICTED [VOLUME RATE/AREA] IN SERUM, PLASMA OR BLOOD BY CREATININE- BASED FORMULA (CKD-EPI 2020) 103.4 <60 - 60 03/31 Specimen Type: PLASMA Comment: No hemolysis noted. Ordering Provider: CLARENCE ANAYA CON Report Released Date/Time: Mar 31, 2023 01:10 PM Reporting Lab: [address] [address] Performing Lab: [facility] [address] [facility] [address] [facility] LIPID PANEL (STL) CHOLESTEROL [MASS/VOLUM E] IN SERUM OR PLASMA 237 mg/dL 0 - 200 03/31 H Specimen Type: PLASMA Comment: No hemolysis noted. Ordering Provider: CLARENCE ANAYA CON Report Released Date/Time: Mar 31, 2023 01:10 PM Reporting Lab: [address] [address] Performing Lab: [address] [address] [facility] LIPID PANEL (STL) TRIGLYCERID E [MASS/VOLUM E] IN SERUM OR PLASMA 175 mg/dL 0 - 150 03/31 H Specimen Type: PLASMA Comment: No hemolysis noted. Ordering Provider: CLARENCE ANAYA CON Report Released Date/Time: Mar 31, 2023 01:10 PM Reporting Lab: [address] [address] Performing Lab: [address] [address] [facility] LIPID PANEL (STL) CHOLESTEROL IN LDL [MASS/VOLUM E] IN SERUM OR PLASMA BY CALCULATION 164 mg/dL 03/31 Specimen Type: PLASMA Comment: No hemolysis noted. Ordering Provider: CLARENCE ANAYA CON Report Released Date/Time: Mar 31, 2023 01:10 PM Reporting Lab: [facility] [address] [place] [phone] Performing Lab: [address] [address] [facility] LIPID PANEL (STL) CHOLESTEROL IN HDL [MASS/VOLUM E] IN SERUM OR PLASMA 38 mg/dL 40 03/31 L Specimen Type: PLASMA Comment: No hemolysis noted. Ordering Provider: CLARENCE ANAYA CON Report Released Date/Time: Mar 31, 2023 01:10 PM Reporting Lab: [facility] [address] [place] [phone] Performing Lab: [address] [phone] [place] [address] HGA1C HEMOGLOBIN A1C/HEMOGLO BIN.TOTAL IN BLOOD 6.4 4.0 - 6.0 03/31 H Specimen Type: BLOOD No comment entered. Ordering Provider: CLARENCE ANAYA CON Report Released Date/Time: Mar 31, 2023 01:10 PM Reporting Lab: [address] [address] Performing Lab: [address] [phone] [place] [address] PROST. SPECIFIC AG.(PB-ST L) PROSTATE SPECIFIC AG [MASS/VOLUM E] IN SERUM OR PLASMA 1.637 ng/mL 0 - 4 03/31 Specimen Type: SERUM Comment: The listed sex of this patient may not be a typical indication for this test. Therefore, reference ranges or interpretiv e criteria listed may not be valid. Clinical correlation suggested. Ordering Provider: CLARENCE ANAYA CON Report Released Date/Time: Mar 31, 2023 01:10 PM Reporting Lab: [address] [address] Performing Lab: [address] [phone] [place] [address] TSH (MA-PB-ST L) THYROTROPIN [UNITS/VOLU ME] IN SERUM OR PLASMA 1.352 u[IU]/mL 0.47 - 5 03/31 Specimen Type: SERUM Comment: No hemolysis noted. Ordering Provider: CLARENCE ANAYA CON Report Released Date/Time: Mar 31, 2023 01:10 PM Reporting Lab: [address] [address] Performing Lab: [address] [phone] [place] [address] VITAMIN D, 25-HYDROX Y 25-HYDROXYV ITAMIN D3 [MASS/VOLUM E] IN SERUM OR PLASMA 43.8 ng/mL 30 - 96 03/31 Specimen Type: SERUM Comment: The listed sex of this patient may not be a typical indication for this test. Therefore, reference ranges or interpretiv e criteria listed may not be valid. Clinical correlation suggested. Ordering Provider: CLARENCE ANAYA CON Report Released Date/Time: Mar 31, 2023 01:10 PM Reporting Lab: [facility] [address] [facility] [address] Performing Lab: [facility] [address] [place] [phone] [facility] GC & CHLAMYDIA PCR (STL-PB) NEISSERIA GONORRHOEAE DNA [PRESENCE] IN URINE BY LEDY WITH PROBE DETECTION Not Detected 03/31 Specimen Type: URINE Comment: This is a qualitative real-time PCR test for the detection and differentia tion of genomic DNA from Chlamydia trachomatis (CT) and Neisseria gonorrhoeae (NG). A negative result does not preclude infection with the agent(s) tested and should not be used as the sole basis for treatment or other patient management decisions. If negative, but symptoms persist, consider re-testing. A positive test does not necessarily indicate the presence of viable organisms, following bacterial culture (for NG) to recover the organism for further characteriz ation and susceptibil ity testing. All results must be combined with clinical observation s, patient history, and epidemiolog ical information for final interpretat ion. Ordering Provider: CLARENCE ANAYA CON Report Released Date/Time: Mar 31, 2023 01:10 PM Reporting Lab: [facility] [address] [facility] [phone] Performing Lab: [address] [address] [facility] GC & CHLAMYDIA PCR (STL-PB) CHLAMYDIA SP DNA [PRESENCE] IN URINE BY LEDY WITH PROBE DETECTION Not Detected 03/31 Specimen Type: URINE Comment: This is a qualitative real-time PCR test for the detection and differentia tion of genomic DNA from Chlamydia trachomatis (CT) and Neisseria gonorrhoeae (NG). A negative result does not preclude infection with the agent(s) tested and should not be used as the sole basis for treatment or other patient management decisions. If negative, but symptoms persist, consider re-testing. A positive test does not necessarily indicate the presence of viable organisms, following bacterial culture (for NG) to recover the organism for further characteriz ation and susceptibil ity testing. All results must be combined with clinical observation s, patient history, and epidemiolog ical information for final interpretat ion. Ordering Provider: CLARENCE ANAYA CON Report Released Date/Time: Mar 31, 2023 01:10 PM Reporting Lab: [place] [address] [facility] [address] Performing Lab: [address] [address] [facility] HIV COMBO FOURTH GENERATIO N (STL) HIV 1+2 AB+HIV1 P24 AG [PRESENCE] IN SERUM OR PLASMA BY IMMUNOASSAY Nonreact lillian 03/31 Specimen Type: SERUM No comment entered. Ordering Provider: CLARENCE ANAYA CON Report Released Date/Time: Mar 31, 2023 01:10 PM Reporting Lab: [address] [address] Performing Lab: [place] [address] [facility] [phone] [facility] Encounters Combined list of: 1) Encounters from Department of [facility] Affairs facilities going backup to the last 18 months, not all [place] inpatient encounters are included; 2) Encounters from the Department of [facility] facilities going backup to 280 months. Location Location Details Encounter Type Encounter Number Reason For Visit Attending Provider ADM Date DC Date Status Disposition Source [facility] Outpatient Encounter [id number] 05/21 [facility] Outpatient Encounter [id number] 07/07 [facility] HC PRO PHONE CALL 5-10 MIN [id number] Diagnos is: ICD-10- CM M54.50 Low back pain, unspeci fied MAYDEN,CHR ISTINE M 07/17 [facility] O/P EST MOD 30-39 MIN [id number] Diagnos is: ICD-10- CM M77.02 Medial epicond ylitis, left elbow ANAYA,MET ROSANA 07/24 [facility] Outpatient Encounter [id number] ANAYA,MET ROSANA 07/31 [facility] PSYTX W PT 30 MINUTES [id number] Diagnos is: ICD-10- CM G89.29 Other chronic pain Layo OLMEDO J 08/03 [facility] ORTHOTIC MGMT&TRAIN G 1ST ENC [id number] Diagnos is: ICD-10- CM M79.643 Pain in unspeci fied hand NAHEED BLANCAS D 08/05 [facility] Outpatient Encounter [id number] 08/10 [facility] PSYTX W PT 30 MINUTES [id number] Diagnos is: ICD-10- CM G89.29 Other chronic pain Layo OLMEDO ERA J 08/17 [facility] Outpatient Encounter [id number] 08/21 [facility] THERAPEUTI C EXERCISES [id number] Diagnos is: ICD-10- CM M79.643 Pain in unspeci fied hand NAHEED BLANCAS IKA D 09/[address] [facility] Outpatient Encounter [id number] 09/03 [facility] HC PRO PHONE CALL 11-20 MIN [id number] Diagnos is: ICD-10- CM M54.50 Low back pain, unspeci fied MAYDEN,CHR ISTINE M 09/08 [facility] PSYTX W PT 30 MINUTES [id number] Diagnos is: ICD-10- CM G89.29 Other chronic pain Layo OLMEDO J 09/09 [facility] THERAPEUTI C EXERCISES [id number] Diagnos is: ICD-10- CM M79.643 Pain in unspeci fied hand NAHEED BLANCASA D 09/23 [facility] SELF CARE MNGMENT TRAINING [id number] Diagnos is: ICD-10- CM M54.50 Low back pain, unspeci fied AUDRA,GIFTY TIN J 11/03 [facility] OFF/OP CNSLTJ NEW/EST MOD 40 [id number] Diagnos is: ICD-10- CM M77.02 Medial epicond ylitis, left elbow PLACIDOGONZALO SALES R 11/04 [facility] Outpatient Encounter [id number] 11/11 [facility] Outpatient Encounter [id number] 11/[address] [facility] Outpatient Encounter [id number] 12/[address] [facility] Outpatient Encounter [id number] 12/20 [facility] Outpatient Encounter [id number] CAMMY PLAZA ISSUSY M 01/05 [facility] Outpatient Encounter [id number] BRITTANY QUINTANILLA 01/07 [facility] Outpatient Encounter [id number] 01/07 [facility] OFFICE O/P NEW MOD 45 MIN [id number] Diagnos is: ICD-10- CM H25.13 Age-rel ated nuclear catarac t, bilnirmala al Bibi CURTIS 02/08 [facility] Outpatient Encounter [id number] Diagnos is: ICD-10- CM F41.9 Anxiety disorde r, unspeci fied MET HÉCTOR ROSANA 02/09 [facility] Outpatient Encounter [id number] 02/09 [facility] Outpatient Encounter [id number] BRANNON ROSE 02/09 [facility] Outpatient Encounter [id number] CHINYERE ROCHA 02/28 [facility] OFFICE O/P NEW MOD 45 MIN [id number] [id number] Diagnos is: ICD-10- CM F43.23 Adjustm ent disorde r with mixed anxiety and depress ed mood WALKER,OCT IE 02/28 [facility] Outpatient Encounter [id number] 03/01 [facility] Outpatient Encounter [id number] BRITTANY QUINTANILLA 03/18 [facility] Outpatient Encounter [id number] DAUS,MADHAVI H A 04/18 [facility] OFFICE O/P EST MOD 30 MIN [id number] Diagnos is: ICD-10- CM F43.23 Adjustm ent disorde r with mixed anxiety and depress ed mood WALKER,OCT IE 04/22 [facility] PSY EVALUATION OF RECORDS [id number] Diagnos is: ICD-10- CM F43.12 Post-tr aumatic stress disorde r, chronic DAUS,MADHAVI H A 05/30 [facility] Outpatient Encounter [id number] DAUS,MADHAVI H A 05/30 [facility] PSYTX W PT 30 MINUTES [id number] [id number] Diagnos is: ICD-10- CM F33.0 Major depress lillian disorde r, recurre nt, mild DAUS,MADHAVI H A 07/13 [facility] OFFICE O/P EST MOD 30 MIN [id number] Diagnos is: ICD-10- CM F43.23 Adjustm ent disorde r with mixed anxiety and depress ed mood MARCELL ENCISO IE 07/25 [facility] Outpatient Encounter [id number] 09/26 [facility] OFF[facility] O/P EST MOD 30 MIN [id number] Diagnos is: ICD-10- CM F43.10 Post-tr aumatic stress disorde r, unspeci fied MARCELL ENCISO IE 10/25 [facility] Social History Combined list of available smoking, tobacco, and other social history from Department of Defense and Veterans Affairs facilities. Social History Type Response Date Comment Sourc e Tobacco smoking status NHIS [facility]-TOBACCO FORMER USER 02/29/2024 [facility] History of tobacco use [place]-TOBACCO QUIT 1 5 YRS OR MORE 02/29/2024 [facility] History of tobacco use VA-TOBACCO FORMER USER 03/27/2023 [facility] Plan of Care List of future care activities from Department of Veterans Affairs facilities. Additional future care activities may be listed in the Assessment and Plan section. Date/Time Care Activity Care Activity Detail Facili ty 01/24/2025 AMBULATORY - PSYCHIATRY [facility]
--- OUTSIDE RECORDS SUMMARY | 2024-11-13 17:09 | XMS_ITS | Patient Health Summary ---
Author Organization [facility] Address [address] [place] [address] Care Team Providers Care Pediatric Psychologist Name Role Phone Car Tiwari MD Primary Care Provider [phone] Note from [facility],non-owned Affiliates and Associated Physician Practices is amultiple site organization consisting of ambulatory clinics and hospital sitesin [place], [place], [place] and [place]. This disclosure is being madepursuant to the Care Everywhere program and may not contain all information available regarding this patient. Last updated 18.[facility] Allergies No known active allergies Medications * Be aware that medications may not be up to date on this document. Alwaysverify current medications with the patient. * HYDROcodone-acetaminophen (NORCO) 5-325 MG tablet(Started 03/17/2016) Take 1 Tab by mouth every 4 hours as needed for Pain * naproxen (NAPROSYN) 500 MG tablet(Started 03/17/2016) Take 1 Tab by mouth 2 times daily as needed for Pain * cyclobenzaprine (FLEXERIL) 5 MG tablet(Started 03/17/2016) Take 1 Tab by mouth every 8 hours as needed (Spasms) Social History Tobacco Use Types Packs/Day Years Used Date Smoking Tobacco: Never Alcohol Use Standard Drinks/Week Comments No 0 (1 standard drink = 0.6 oz pur e alcohol) Sex and Gender Information Value Date Recorded Sex Assigned at Not on file Gender Identity Not on file Sexual Orientation Not on file Last Filed Vital Signs Vital Sign Reading Time Taken Comments Blood Pressure 152/89 03/17/2016 2:44 PM CDT Pulse 62 03/17/2016 2:44 PM CDT Temperature - - Respiratory Rate 18 03/17/2016 2:44 PM CDT Oxygen Saturation 100% 03/17/2016 2:44 PM CDT Inhaled Oxygen Concentration - - Weight 77.1 kg (170 lb) 03/17/2016 10:55 AM CDT Height 170.2 cm (5' 7.01 ) 03/17/2016 10:55 AM C DT Body Mass Index 26.62 03/17/2016 10:55 AM CDT Procedures * CT ABDOMEN PELVIS W CONTRAST(Performed 03/17/2016) Performed for Fall, initial encounter * XR HIP RIGHT 2VW OR MORE(Performed 03/17/2016) Performed for Fall, initial encounter * XR PELVIS 1 OR 2VW(Performed 03/17/2016) Performed for Fall, initial encounter * XR LUMBAR SPINE 2 OR 3VW(Performed 03/17/2016) Performed for Fall, initial encounter * COMPREHENSIVE METABOLIC PANEL(Performed 03/17/2016) * CBC W AUTO DIFFERENTIAL(Performed 03/17/2016) Results * CT ABDOMEN AND PELVIS WITH IV CONTRAST (03/17/2016 12:01 PM CDT) Anatomical Region Laterality Modality Abdomen, Pelvis Computed Tomogra phy 03/17/2016 12:2 8 PM CDT Narrative 03/17/2016 12:31 PM CDT Examination: CT abdomen and pelvis with contrast. Indication for examination: Low Dilantin pelvic pain. Extremity pain and numbness. Trauma. CT examination of the abdomen and pelvis is performed with intravenous contrast with sagittal and coronal reconstructions. 80 mL Omnipaque [address] abdomen: CT examination of the abdomen shows that the liver and spleen are normal in size. No laceration or hemorrhage is identified. Gallbladder is normal in size. Bile ducts are not dilated. No discrete pancreatic abnormality is identified. Kidneys are normal in size and shape without obstruction or perinephric fluid. There is no retroperitoneal hemorrhage or fluid collection. Abdominal aorta and inferior vena cava are normal in caliber. There is no bowel obstruction or perforation. There is no ascites or loculated peritoneal fluid. CT pelvis: CT examination of the pelvis shows no mass lesion or fluid collection. There is no evidence of acute colitis or acute diverticulitis. There is no superficial or deep soft tissue edema. Appendix is normal in caliber. There is degenerative change L5-S1. There is no fracture or malalignment. Remaining bony structures are grossly intact. Conclusion: Unremarkable examination as described. No acute abnormality identified. Chronic degenerative change L5-S1 disc space level. Procedure Note Maged Sidhu MD - 03/17/2016 Examination: CT abdomen and pelvis with contrast. Indication for examination: Low Dilantin pelvic pain. Extremity pain and numbness. Trauma. CT examination of the abdomen and pelvis is performed with intravenous contrast with sagittal and coronal reconstructions. 80 mL Omnipaque [address] abdomen: CT examination of the abdomen shows that the liver and spleen are normal in size. No laceration or hemorrhage is identified. Gallbladder is normal in size. Bile ducts are not dilated. No discrete pancreatic abnormality is identified. Kidneys are normal in size and shape without obstruction or perinephric fluid. There is no retroperitoneal hemorrhage or fluid collection. Abdominal aorta and inferior vena cava are normal in caliber. There is no bowel obstruction or perforation. There is no ascites or loculated peritoneal fluid. CT pelvis: CT examination of the pelvis shows no mass lesion or fluid collection. There is no evidence of acute colitis or acute diverticulitis. There is no superficial or deep soft tissue edema. Appendix is normal in caliber. There is degenerative change L5-S1. There is no fracture or malalignment. Remaining bony structures are grossly intact. Conclusion: Unremarkable examination as described. No acute abnormality identified. Chronic degenerative change L5-S1 disc space level. Hugo Nur MD CT ORDERABLES * XR HIP 2+ VW RIGHT (03/17/2016 9:52 AM CDT) Anatomical Region Laterality Modality Pelvis, Lower Extremity Radiogra [facility] 03/17/2016 10:0 5 AM CDT Impressions 03/17/2016 10:05 AM CDT There is no acute fracture seen. Narrative 03/17/2016 10:05 AM CDT Right hip 2 views unilateral Indication: Right hip pain, fall 2 views of the right hip show no acute fracture. There is no destructive lesion. There is mild degenerative change of the right hip. Procedure Note Suzette García MD - 03/17/2016 Right hip 2 views unilateral Indication: Right hip pain, fall 2 views of the right hip show no acute fracture. There is no destructive lesion. There is mild degenerative change of the right hip. IMPRESSION There is no acute fracture seen. Hugo Nur MD DIAGNOSTIC IMAGING O RDERABLES * XR PELVIS 1 OR 2 VW (03/17/2016 9:52 AM CDT) Anatomical Region Laterality Modality Pelvis Radiographic Lori ging 03/17/2016 10:0 6 AM CDT Impressions 03/17/2016 10:06 AM CDT No acute fracture. Narrative 03/17/2016 10:06 AM CDT Pelvis AP one view Indication: Pelvic pain, fall AP view of the pelvis shows both hips are located. There is normal mineralization. There is no acute fracture. Phleboliths are seen in the pelvis. Procedure Note Suzette García MD - 03/17/2016 Pelvis AP one view Indication: Pelvic pain, fall AP view of the pelvis shows both hips are located. There is normal mineralization. There is no acute fracture. Phleboliths are seen in the pelvis. IMPRESSION No acute fracture. Hugo Nur MD DIAGNOSTIC IMAGING O RDERABLES * XR LUMBAR SPINE 2 OR 3 VW (03/17/2016 9:51 AM CDT) Anatomical Region Laterality Modality Spine Radiographic Lori ging 03/17/2016 10:0 6 AM CDT Impressions 03/17/2016 10:06 AM CDT Multilevel degenerative change. Narrative 03/17/2016 10:06 AM CDT Lumbosacral spine 2 views AP and lateral Indication: Fall, back pain AP and lateral views of lumbosacral spine are provided. There is normal alignment. There is loss of disc space height at L5-S1. There is degenerative change. No compression is evident. Procedure Note Suzette García MD - 03/17/2016 Lumbosacral spine 2 views AP and lateral Indication: Fall, back pain AP and lateral views of lumbosacral spine are provided. There is normal alignment. There is loss of disc space height at L5-S1. There is degenerative change. No compression is evident. IMPRESSION Multilevel degenerative change. Hugo Nur MD DIAGNOSTIC IMAGING O RDERABLES * (ABNORMAL) CBC W AUTO DIFFERENTIAL (03/17/2016 9:23 AM CDT) WBC 8.3 4.4 - 10.7 x10E9/L 03/17/2016 9:39 AM CDT [facility] WBC Corrected x10E9/L 03/17/2016 9:39 AM CDT [facility] RBC 4.85 3.80 - 5.40 x10E12/L 03/17/2016 9:39 AM CDT [facility] Hemoglobin 14.6 12.0 - 17.6 gm/dL 03/17/2016 9:39 AM CDT [facility] Hematocrit 40.6 35.2 - 51.7 % 03/17/2016 9:39 AM CDT [facility] MCV 83.7 80.7 - 98.3 fl 03/17/2016 9:39 AM CDT [facility] MCH 30.1 26.7 - 34.0 pg 03/17/2016 9:39 AM CDT [facility] MCHC 36.0(H) 30.8 - 35.9 gm/dL 03/17/2016 9:39 AM CDT [facility] Platelet Count 266 153 - 416 x10E9/L 03/17/2016 9:39 AM CDT [facility] RDW-CV 11.8(L) 12.1 - 14.9 % 03/17/2016 9:39 AM CDT [facility] MPV 10.6 9.4 - 12.9 fl 03/17/2016 9:39 AM CDT [facility] Neutrophils % 69.6 44.0 - 73.0 % 03/17/2016 9:39 AM CDT [facility] Lymphocytes % 22.9 20.0 - 43.0 % 03/17/2016 9:39 AM CDT [facility] Monocytes % 5.3 5.0 - 13.0 % 03/17/2016 9:39 AM CDT [facility] Eosinophils % 1.2 0.0 - 6.0 % 03/17/2016 9:39 AM CDT [facility] Basophils % 0.5 0.0 - 2.0 % 03/17/2016 9:39 AM CDT [facility] Immature Granulocytes 0.5 0 - 1 % 03/17/2016 9:39 AM CDT [facility] Neutrophil Absolute 5.76 2.01 - 7.14 x10E9/L 03/17/2016 9:39 AM CDT [facility] Lymphocytes Absolute 1.90 1.07 - 3.94 x10E9/L 03/17/2016 9:39 AM CDT [facility] Monocytes Absolute 0.44 0.26 - 1.07 x10E9/L 03/17/2016 9:39 AM CDT [facility] Eosinophils Absolute 0.10 0 - 0.47 x10E9/L 03/17/2016 9:39 AM CDT [facility] Basophils Absolute 0.04 0 - 0.08 x10E9/L 03/17/2016 9:39 AM CDT [facility] Immature Granulocytes Absolute 0.04 0.00 - 0.06 x10E9/L 03/17/2016 9:39 AM CDT [facility] nRBC Auto 0 /100 WBC 03/17/2016 9:39 AM CDT [facility] Blood BLOOD SPECIMEN / Unknown 03/17/2016 9:23 AM CDT 03/17/2016 9:36 AM CDT Hugo Nur MD LAB - HEMATOLOGY ORD ERABLES [facility] [address] [place] [address] * (ABNORMAL) COMPREHENSIVE METABOLIC PANEL (03/17/2016 9:23 AM CDT) Glucose 129(H) 74 - 106 mg/dL 03/17/2016 9:55 AM CDT [facility] Sodium 141 136 - 145 mmol/L 03/17/2016 9:55 AM CDT [facility] Potassium 3.6 3.5 - 5.1 mmol/L 03/17/2016 9:55 AM CDT [facility] Chloride 104 98 - 107 mmol/L 03/17/2016 9:55 AM CDT [facility] CO2 26 22 - 31 mmol/L 03/17/2016 9:55 AM CDT [facility] Calcium 9.6 8.5 - 10.1 mg/dL 03/17/2016 9:55 AM CDT [facility] Anion Gap 11 5 - 20 mmol/L 03/17/2016 9:55 AM CDT [facility] BUN 11 7 - 21 mg/dL 03/17/2016 9:55 AM CDT [facility] Creatinine 0.87 0.50 - 1.30 mg/dL 03/17/2016 9:55 AM CDT [facility] Alkaline Phosphatase 59 38 - 126 U/L 03/17/2016 9:55 AM CDT [facility] ALT 42 13 - 61 U/L 03/17/2016 9:55 AM CDT [facility] Comment:See reference range update AST 24 5 - 40 U/L 03/17/2016 9:55 AM CDT [facility] Protein Total 7.7 6.4 - 8.2 gm/dL 03/17/2016 9:55 AM CDT [facility] Albumin 4.2 3.4 - 5.0 gm/dL 03/17/2016 9:55 AM CDT [facility] Bilirubin Total 0.8 0.2 - 1.0 mg/dL 03/17/2016 9:55 AM CDT [facility] eGFR by MDRD >60 >60 mL/min/1.7 3m2 03/17/2016 9:55 AM CDT [facility] eGFR by MDRD >60 >60 mL/min/1.7 3m2 03/17/2016 9:55 AM CDT [facility] Blood BLOOD SPECIMEN / Unknown 03/17/2016 9:23 AM CDT 03/17/2016 9:36 AM CDT Hugo Nur MD LAB - CHEMISTRY SYDNIE PEÑA [facility] Organization Address City/State/ZIP Co de Phone Number [facility] [address] [phone] Care Teams Pediatric Psychologist Relationship Specialty Start Date End Date Car Tiwari MD PCP - General 06/22/18
--- OUTSIDE RECORDS SUMMARY | 2024-11-13 17:09 | XMS_ITS | Clinical Summary ---
Author Organization [facility] Address [address] [place] [address] Care Team Providers Care Neuropsychology Service Director Name Role Phone Car Tiwari MD Primary Care Provider [phone] Source Comments [facility],non-owned Affiliates and Associated Physician Practices is amultiple site organization consisting of ambulatory clinics and hospital sitesin [place], [place], [place] and [place]. This disclosure is being madepursuant to the Care Everywhere program and may not contain all information available regarding this patient. Last updated 18.[facility] Allergies No known active allergies Medications * Be aware that medications may not be up to date on this document. Alwaysverify current medications with the patient. Medication Sig Dispensed Refills Start Date End Date Status HYDROcodone-acetaminop hen (NORCO) 5-325 MG tablet Take 1 Tab by mouth every 4 hours as needed for Pain 20 Tab 0 03/17/2016 Active naproxen (NAPROSYN) 500 MG tablet Take 1 Tab by mouth 2 times daily as needed for Pain 20 Tab 0 03/17/2016 Active cyclobenzaprine (FLEXERIL) 5 MG tablet Take 1 Tab by mouth every 8 hours as needed (Spasms) 15 Tab 0 03/17/2016 Active Social History Tobacco Use Types Packs/Day [...] Mass Index 26.62 03/17/2016 10:55 AM CDT Plan of Treatment Health Maintenance Due Date Last Done Comments COLOGUARD (AGES 45-75) - COL ON CA SCREENING 1968 COLON MONITORING 1968 COLONOSCOPY - COLON CA SCREENING 1968 CT COLONOGRAPHY - COLON CA SCREENING 1968 Colorectal Cancer Screening 1968 FIT - COLON CA SCREENING 1968 FLEX SIG - COLON CA SCREENING 1968 LIPID TESTING 1968 HIV SCREENING 01/04/1983 HEPATITIS C SCREENING 12/31/1985 DTAP/TDAP/TD VACCINES (1 - Tdap) 01/04/1987 HEPATITIS B VACCINE (1 of 3 - 19+ 3-dose series) 01/04/1987 PNEUMOCOCCAL VACCINE 50+ (1 of 1 - PCV) 01/04/2018 ZOSTER VACCINE (1 of 2) 01/04/2018 COVID-19 VACCINE (1 - 2023-2 5 season) 2024 INFLUENZA VACCINE (#1) 2024 DEPRESSION SCREENING 08/31/2024 HIB VACCINE Aged Out No longer eligi ble based on patient's age to complete this topic HPV VACCINE Aged Out No longer eligi ble based on patient's age to complete this topic MENINGOCOCCAL (Group B) VACC INE SHARED DECISION-MAKING Aged Out No longer eligibl e based on patient's age to complete this topic MENINGOCOCCAL GROUPS A/C/Y/W VACCINE Aged Out No longer eligible b ased on patient's age to complete this topic PNEUMOCOCCAL VACCINE Aged Out No long er eligible based on patient's age to complete this topic Care Teams Neuropsychology Service Director Relationship Specialty Start Date End Date Car Tiwari MD PCP - General 06/22/18
--- OUTSIDE RECORDS SUMMARY | 2024-11-13 17:09 | XMS_ITS | Encounter Summary ---
Author Name [facility] [place] Organization [facility] [place] [place] [facility] [place] Address [address] [place] [address] Care Team Providers Care 1St [employer] On [employer] Name Role Phone HARSHIL JENSEN Primary Care Provider Unavail able Selected Encounter This section includes the information on record at [place] for the Encounter. Date/Time Encounter Type Encounter Description Reason Provider Source Feb 29, 2024 02:00 PM OFFICE O/P NEW MOD 45 MIN [facility]ENTAL [facility] CLINIC - IND ICD-10-CM F43.23 Adjustment disorder with mixed anxiety and depressed mood BALJINDER ENCISO Encounter Template Text not used by [place] Assessments - Encounter Diagnoses This section includes the primary and secondary diagnoses documented for the Encounter. Date/Time Primary/Secondary Diagnosis Diagnosis Name Provider Source Feb 29, 2024 02:53 PM PRIMARY Adjustment disorder with mixed anxiety and depressed mood BALJINDER ENCISO [facility] Plan of Treatment: Future Appointments (+ [...] Date/Time Appointment Type Appointme nt Facility Name Apr 18, 2024 01:00 PM AMBULATORY - PSYCHIATRY [facility] Apr 22, 2024 10:30 AM AMBULATORY - PSYCHIATRY [facility] May 30, 2024 10:00 AM AMBULATORY - NONE [facility] Jul 13, 2024 10:00 AM AMBULATORY - NONE [facility] Jul 25, 2024 10:30 AM AMBULATORY - PSYCHIATRY [facility] Social History: Smoking Status (Most current) [...] 29, 2024 09:46 AM VA-TOBACCO FORMER USER [facility] Tobacco Use History This section includes a history of the smoking, or tobacco-related health factors, that were collected on or before the date of the Encounter. The data comes from the [place] facility where the Encounter took place. Date/Time Smoking Status/Tobacco Use Comment F acamelia Feb 29, 2024 09:46 AM [place]-TOBACCO QUIT 15 YRS OR MORE [facility] Encounter Notes: All associated encounter notes This section contains the clinical notes associated to the Encounter. Date/Time Encounter Note(s) Provider Source Feb 29, 2024 02:18 PM SUICIDE PREVENTION NOTE: LOCAL TITLE: [place]-SUICIDE SEVERITY RATING SCALE STANDARD TITLE: SUICIDE PREVENTION NOTE DATE OF NOTE: FEB 29, 2024@14:18 ENTRY DATE: FEB 29, 2024@14:18:46 AUTHOR: BALJINDER ENCISO: URGENCY: STATUS: COMPLETED [place]-Suicide Severity Rating Scale (C-SSRS Screener) 1. Over the past month, have you wished you were or wished you could go to sleep and not wake up? No 2. Over the past month, have you had any actual thoughts of killing yourself? No 3. Over the past month, have you been thinking about how you might do this? Response not required due to responses to other questions. 4. Over the past month, have you had these thoughts and had some intention of acting on them? Response not required due to responses to other questions. 5. Over the past month, have you started to work out or worked out the details of how to kill yourself? Response not required due to responses to other questions. 6. If yes, at any time in the past month did you intend to carry out this plan? Response not required due to responses to other questions. 7. In your lifetime, have you ever done anything, started to do anything, or prepared to do anything to end your life (for example, collected pills, obtained a gun, gave away valuables, went to the roof but didn't jump)? No 8. If YES, was this within the past 3 months? Response not required due to responses to other questions. I have reviewed the results of the Mental Health screens and have evaluated the patient. Based on the evaluation, the following disposition plan will be implemented: Already receiving needed treatment. Contact information and instructions for accessing emergency services provided. /garcia/ BALJINDER ENCISO Staff Psychiatrist, PhD [facility] Signed: 02/29/2024 14:[address] [facility] Feb 29, 2024 02:06 PM MENTAL HEALTH SHELBI TMENT PLAN NOTE: LOCAL TITLE: MHS TREATMENT PLAN STANDARD TITLE: MENTAL HEALTH TREATMENT PLAN NOTE DATE OF NOTE: FEB 29, 2024@14:06:23 ENTRY DATE: FEB 29, 2024@14:06:32 AUTHOR: BALJINDER ENCISO EXP COSIGNER: URGENCY: STATUS: COMPLETED MHS TREATMENT PLAN - Feb, @ 02:06PM Visit Date: Feb, @ 14:00 [facility] not assigned TEAM MEMBERS: BALJINDER ENCISO: PHYSICIAN (STAFF) RISK ASSESSMENT (DANGER TO SELF AND OTHERS): anxiety PATIENT'S STRENGTHS/ABILITIES: I can identify when I need extra help TREATMENT PLAN: Problem: Problem/Need: [ANXIETY]: I have been experiencing a pattern of anxiety, including the following symptoms/behaviors: anxiety. Goal: I want to lower the level of my anxiety. Objective: I will take medications as prescribed to promote improvement in anxiety. Improvement will be measured through in-office assessment and self-report. Projected Target Date: 02/28/2025 Intervention: [MEDICATION MANAGEMENT] My provider will prescribe medication to manage my symptoms and monitor my response. Providers: BALJINDER ENCISO Time Frame: Four times per year for 1 year Treating Specialty: [facility] Renewal Date: 02/28/2025 Entered Treatment: 02/29/2024 @ 02:05PM Anticipated Discharge: None Actual Discharge: None PARTICIPATION IN TREATMENT PLANNING: Relevant treatment options, including evidence-based interventions, were considered and discussed with the [place]. Risks, benefits, and potential complications were discussed with the . AGREED TO PLAN DISCUSSED. FAMILY PARTICIPATION IN TREATMENT PLANNING: 'S FAMILY NOT AVAILABLE. /garcia/ BALJINDER ENCISO Staff Psychiatrist, PhD [facility] Signed: 02/29/2024 14:06 BALJINDER ENCISO [facility] Feb 29, 2024 02:00 PM PSYCHIATRY CONSULT : LOCAL TITLE: PSYCHIATRY [facility] CONSULT [facility] STANDARD TITLE: PSYCHIATRY CONSULT DATE OF NOTE: FEB 29, 2024@14:00 ENTRY DATE: FEB 29, 2024@14:00:56 AUTHOR: BALJINDER ENCISO EXP COSIGNER: URGENCY: STATUS: COMPLETED [facility] - INITIAL CONSULTATION/EVALUATION PLAN OF CARE NAME.................Layo OWENS AGE..................54 SEX..................MALE SSN..................[id number] SERVICE CONNECTION...Service Connected: Service Connected: Yes (100%) THIS WAS A [facility] APPOINTMENT and the below were completed prior [...] OUTPATIENT MEDICATIONS: Active Outpatient Medications (excluding Supplies): Active Outpatient Medications Status 1) BUSPIRONE HCL 15MG TAB TAKE ONE TABLET BY MOUTH THREE ACTIVE TIMES A DAY FOR ANXIETY DO NOT TAKE WITH GRAPEFRUIT JUICE. 2) ESCITALOPRAM OXALATE 20MG TAB TAKE ONE TABLET BY ACTIVE MOUTH ONCE A DAY FOR ANXIETY 3) IRBESARTAN 300MG TAB TAKE ONE TABLET BY MOUTH ONCE A ACTIVE DAY FOR HIGH BLOOD PRESSURE 4) MELOXICAM 15MG TAB TAKE ONE TABLET BY MOUTH ONCE A ACTIVE DAY FOR PAIN 5) ROSUVASTATIN CA 20MG TAB TAKE ONE-HALF TABLET BY ACTIVE MOUTH EVERY EVENING FOR HIGH CHOLESTEROL ANY MEDICATION SIDE EFFECT....No Medication Reconciliation Opt STL: I have reviewed the patient's medication list with the patient and/or his/her care-ore charger. Any medication discrepancies have been resolved. PROBLEM LIST: 1) LUMBAGO 2) Posttraumatic stress disorder 3) Anxiety 4) Exposure to potentially hazardous substance VITAL SIGNS: VSD - Detailed Vitals No data available Patient Weight History - Last Four Patient Weight History - Last Four 1. 191.2 lbs. / 86.7 kg. on NOV 05, 2023@11:33:47 2. 201.2 lbs. / 91.3 kg. on JUL 24, 2023@14:02 3. 207.0 lbs. / 93.9 kg. on MAR 31, 2023@12:30:11 LAB VALUES: LAB CHEMISTRY & HEMATOLOGY No data available LAB MICROBIOLOGY No data available PERTINENT TESTS/IMAGING/INTERVENTIONS: SUBJECTIVE: CHIEF COMPLAINT/PROBLEM: Anxiety/Depression HISTORY OF PRESENT ILLNESS: I reviewed 's chart in CPRS for 40 minutes prior to this visit. Mr. Owens is a 54 year old 30%sc for PTSD presenting to [facility] to establish care. His first contact w [place] psychiatry was [facility] where he was seen briefly by [...] He was ultimately arrested and put in [facility] for a day. He lived in his camper for a while but they are now living together again and getting along for the moment. No longer working, states he was at [facility] when the police were called and his preacher was there, he felt ashamed. Has been sad about the state of his marraige, the loss of his job. Doesn't like going back and forth between the house and trailer. for 23 years, wants to work it out i'm a good Mosque and we have God in our marraige [...] to 30mg, continue Buspar, and start Vistaril. PSYCH ROS: SLEEP: not an issue APPETITE: not an issue MOOD: depressed about my situation ADI: screened negative ANXIETY: anxious about his relationship, worries throughout the day about what will happen PTSD: nightmares, flashbacks, hypervigelance, mood symptoms, avoidance behaviors PSYCHOSIS: none SAFETY: denied current SI, , HI, no intention or plan * denied past h/o SDV, suicide attempts or violence toward others * Firearms: No- removed by police * Protective factors: able to ask for help SUBSTANCE: * tobacco: No * etoh: none for the past 7 years * illicits: edible gummies PAST PSYCHIATRIC HISTORY: Inpatient: none Outpatient: briefly [facility] Dr. Nettles PAST PSYCH MED TRIALS: Buspar Lexapro PERTINENT MEDICAL HISTORY: See problem list in CPRS Current medical problems: See most recent PCP note HISTORY: Period of Service: [employer] Branch of Service: [employer] Combat: Yes Combat exposure: Yes MST/other trauma: No FAMILY/SOCIAL/DEVELOPMENTAL HISTORY: , has several children from current and previous marraiges, retired last year due to chronic pain. Currently going through relationship issues. Father December 29. REVIEW OF SYSTEMS: Otherwise negative 13 system review. Constitutional...........No Eyes.....................No Ears/Nose/Mouth/Throat...No Cardiovascular...........No Respiratory..............No Gastrointestinal.........No Genitourinary............No Muscular.................No Integumentary............No Neurological.............No Endocrine................No Hematologic/Lymphatic....No Allergies/Immune.........No PSYCHIATRIC SPECIALTY EXAMINATION: MENTAL STATUS EXAMINATION GENERAL...................... .... A&O x 4, NAD GAIT/POSTURE................. .... Normal gait, posture APPEARANCE................... .... Well groomed, calm, cooperative ATTITUDE/BEHAVIOR ............... calm, cooperative, engaged PSYCHOMOTOR ACTIVITY ........... Normal EYE CONTACT ..................... appropriate SPEECH .......................... normal fluent MOOD ............................ ok AFFECT .......................... congruent, appropriate, non-labile THOUGHT CONTENT: SUICIDAL IDEATION............... absent AGGRESSIVE IDEATION............. absent DELUSIONS.................... ... absent OBSESSIONS/COMPULSIONS....... ... absent PREOOCUPATIONS/RUMINATIONS... ... absent OTHER........................ ... n/a THOUGHT PROCESS...................... .. coherent, linear, goal directed PERCEPTIONS.................. .......... devoid of hallucinations COGNITION.................... .......... grossly intact MEMORY....................... ... normal CONCENTRATION................ ... not impaired for eval purposes INTELLIGENCE/KNOWLEDGE....... ... normal/normal INSIGHT...................... .......... good JUDGMENT..................... .......... good IMPULSE CONTROL...................... .. good ASSESSMENT AND TREATMENT PLANNING: DSMV DIAGNOSIS: Adjustment disorder with depressed and anxious mood SAFETY ASSESSMENT: Pt denied current SI, , HI, no intention or plan. * denied past h/o SDV, suicide attempts or violence toward others * Firearms: No * Protective factors: able to ask for help Current risk of harm to self or others is low. USP risk of harm to self or others is low. Pt does not meet criteria for involuntary committment. Pt will benefit from ongoing outpatient mental health treatment. Pt provided w/contact information for marketing copywriter, clinic and crisis line. Advised to call crisis line, 911/ER if concerned for safety of self/others. ASSESSMENT AND TREATMENT PLAN: Mr. Owens is a 54 year old new to [facility] with depression/anxiety [facility]. Currently prescribed Buspar and Lexapro by PCP. josefa Torres SI for outpatient care INTERVENTIONS: Medication(s)................ ........yes *STOP Buspar 15mg po tid for anxiety *INCREASE Lexapro 20mg to 30mg po daily for mood *START Vistaril 10mg po tid prn for anxiety * r/b/se of meds discussed, pt understood and consented to trmt outlined Supportive Psychotherapy.............yes Individual Psychotherapy.............yes Group Therapy...................... ..no AA/CA/NA..................... ........no Dietary Consult...................... no Insurance Claims Specialist Consult.....................n o Vocational Rehabilitation Consult....no OT/RT Consult...................... ..no Medicine Consult/PCP.................n o Patient Education.................... yes Family Meeting...................... .no Other referrals/labs............... ..no INSTRUCTIONS GIVEN TO PATIENT/FAMILY: * Report medication side effects promptly * No alcohol/illicit drug use with medication * Needs to be cautious with driving/use of machinery * Avoid night-time driving * Follow up with Primary Care Provider * If symptoms get worse, call clinic or Emergency Room as appropriate * Other risks/benefits discussed today: FOLLOW-UP: Return to clinic 6 weeks for med mgmt f/u FACE TO FACE TIME: 60 minutes of which 30 minutes were psychoeducation and supportive psychotherapy. LAST MH TREATMENT PLAN CREATED/RENEWED: 02/29/24 LAST [place] SUICIDE SCREEN CREATED: 02/29/24 LAST AIMS EVAL PERFORMED: N/A LAST ANTIPSYCHOTIC MEDICATION LABS ORDERED/REVIEWED: N/A /garcia/ BALJINDER ENCISO Staff Psychiatrist, PhD [facility] Signed: 02/29/2024 14:[address] [facility]
--- OUTSIDE RECORDS SUMMARY | 2024-11-13 17:09 | XMS_ITS | Referral Summary ---
Author Organization [facility] Address [address] [place] [address] Care Team Providers Care Regulatory Affairs Associate Name Role Phone Car Tiwari MD Primary Care Provider [phone] Source Comments [facility],non-owned Affiliates and Associated Physician Practices is amultiple site organization consisting of ambulatory clinics and hospital sitesin [place], [place] and [place]. This disclosure is being madepursuant to the Care Everywhere program and may not contain all information available regarding this patient. Last updated 18.[facility] Allergies No known active allergies Medications * [...] cm (5' 7.01 ) 03/17/2016 10:55 AM Denise CAMPOS Body Mass Index 26.62 03/17/2016 10:55 AM CDT Plan of Treatment Not on file Care Teams Regulatory Affairs Associate Relationship Specialty Start Date End Date Car Tiwari MD PCP - General 06/22/18
--- OUTSIDE RECORDS SUMMARY | 2024-11-13 17:09 | XMS_ITS | Encounter Summary ---
Author Name [facility] [place] [facility] [place] Organization [facility] [place] Address [address] [place] [address] Care Team Providers Care Teacher Early Childhood Development Name Role Phone HARSHIL JENSEN Primary Care Provider Unavail able Selected Encounter This section includes the information on record at [place] for the Encounter. Date/Time Encounter Type Encounter Description Reason Pro vider Source IHE Encounter Template Text not used by [place]
--- OUTSIDE RECORDS SUMMARY | 2024-11-13 17:09 | XMS_ITS | Clinical Summary ---
Author Organization [facility] Address [address] [place] [address] Care Team Providers Care Oceanology Teacher Name Role Phone [facility], Dank Melo Primary Care Pro vider Allergies Active Allergy Reactions Criticality Noted Date Comments Iodinated Contrast Media Swelling Medium 10/12/2018 Medications losartan (COZAAR) 25 mg tablet Take 25 mg by mouth early morning babysitter before breakfast Active busPIRone (BUSPAR) 15 mg tabletIndicatio ns:Generalized Anxiety Disorder Take 15 mg by mouth early morning babysitter before breakfast Active clomiPHENE (CLOMID) 50 mg tablet Take 25 mg by mouth early morning babysitter before breakfast Active multivitamin tablet,chewable Take 1 [...] (10/19/2018): Added automatically from request for surgery [id number] 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 region 10/12/2018 Overview (10/12/2018): Assessment & Plan (10/12/2018 2:09 PM PRODUCT SUPPORT SPECIALIST): Mr. Garza has a right C8 radiculopathy [...] cervical laminoforaminotomy on the right. Hemospermia 05/18/2009 Surgical History Surgery Date Site/Laterality Comments LUMBAR DISC SURGERY 08/31/1998 - 08/30/1999 L5-S1 Surgery (Dr. Pereira) -- 2 subsequent procedures due to staph infection CARPAL TUNNEL RELEASE 08/31/2012 - 08/30/2013 Right CARPAL TUNNEL RELEASE 08/31/2014 - 08/30/2015 Left ELBOW SURGERY Bilateral ABCESS DRAINAGE 08/31/1998 - 08/30/1999 I&D x 2 due to severe staph infection following lumbar spine surgery (rare strain of staph) ELBOW SURGERY Right tennis elbow Medical History Medical History Date Comments Hypertension Hyperlipidemia HNP (herniated nucleus pulposus), cervical Anxiety Obesity (BMI 30.0-34.9) BMI 32 Testosterone insufficiency Family History Medical History Relation Name Comments COPD Father Diabetes Mother Hypertension Mother Cancer Other 1 Family history of Cancer, unknown; Heart disease Other 2 Family history of Heart disease; Hypertension Other 3 Family history of Hypertension; Ovarian cancer Sister Cancer, ovari an; Relation Name Status Comments Father Mother Other 1 Other 2 Other 3 Sister Social History Tobacco Use Types Packs/Day Years Used Date Smoking Tobacco: Former Cigarettes 1988 Smokeless Tobacco: Never Comments:4-5 cigs/day Alcohol [...] on file Legal Sex Male 12:40 AM PRODUCT SUPPORT SPECIALIST Gender Identity Not on file Sexual Orientation Not on file 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 Not on file Not on file Not on file Obstetrics History Last Filed Vital Signs Vital Sign Reading [...] 11/26/2018 4:08 PM CDT Plan of Treatment Health Maintenance Due Date Last Done Comments Colon Cancer Screening-Colonoscopy 1968 Hepatitis C Screening 1968 Prostate Cancer Screening-PSA 1968 DTaP/Tdap/Td Vaccine (1 - Tdap) 01/04/1979 Hepatitis B Screening 01/04/1986 Regular Well Visit/Exam 18-64 01/04/1986 Zoster Vaccine (1 of 2) 01/04/2018 Depression Screening 10/12/2019 10/12/2018, 10/12/2018 Influenza Vaccine (#1) 2024 Pneumococcal vaccine <65 Aged Out No longer eligible based on patient's age to complete this topic Medical Devices Implanted Type Area Senior Sales Operations Analyst Device Identifier Shelf Expiration Date Model / Serial / Lot Core Link Anodyne 12mm Level 1 Spine Cervical Anterior Plate Bone - [id number] Implanted:Qty: 1 on 11/26/2018 by Corona Case MD at [facility] Plate N/A: Spine Cervical Core Link / / Core Link [id number] Anodyne 4mm 14mm Variable Angle Self Tap Spine Cervical Screw - [id number] Implanted:Qty: 4 on 11/26/2018 by Corona Case MD at [facility] Screw N/A: Spine Cervical Core Link / / [employer] 700-025 I Factor Allograft Putty Syringe Graft 2.5cc Bone - [id number] Implanted:Qty: 1 on 11/26/2018 by Corona Case MD at [facility] N/A: Cervical-Tho racic Spine [employer] 08/30/2021 700-025 / / [id number] [employer] 3d Cervical [id number] 7 Deg - [id number] Implanted:Qty: 1 on 11/26/2018 by Corona Case MD at [facility] N/A: Cervical-Tho racic Spine Core Link [id number] 04/15/2023 [id number] / / [id number] Insurance [employer] [place] Advance Directives For more information, please contact: [phone] * Full Code (Latest Code Status on File) Date Activated Date Inactivated Comments 11/26/2018 4:08 PM 11/26/2018 10:37 PM Care Teams Oceanology Teacher Relationship Specialty Start Date End Date [facility], Dank Melo [address] [place] [id number] PCP - General Genetics 12/21/23
--- NOTE | 2024-11-13 17:12 | ECG_ITS ---
Test Date: 2024-11-13 22:11:08 Measurements Intervals [place] Rate: 58 P: 47 [place]: 154 QRS: 23 QRSD: 93 T: 47 QT: 413 QTc: 406 Interpretive Statements SINUS BRADYCARDIA Compared to ECG 11/13/2024 17:19:05 Sinus rhythm no longer present Sinus arrhythmia no longer present Electronically Signed On 11-14-2024 15:22:01 CDT by Pepe Mathews M.D.
--- NOTE | 2024-11-13 17:26 | ED_ITS ---
HPI - General Adult General Chief complaint: Chest Pain <Shane Smith DO - Last Filed: 11/15/24 07:53> Stated complaint: ELEVATED B/P <Shane Smith DO - Last Filed: 11/15/24 07:53> Time Seen by Provider: 11/13/24 17:10 <Shane Smith DO - Last Filed: 11/15/24 07:53> History of Present Illness HPI narrative: Kevin is a 54M with a PMH of PTSD, depression, IBS, HLD, OA, MALKA, HTN and hemorrhoids that presented to the ED with elevated BP, intermittent chest pain and rectal bleeding. He has had worsening rectal bleeding for a few months. Today he felt off. He had more rectal bleeding, hip pain, intermittent stabbing chest pain and felt weak so he came into the ED. <Shane Smith DO - Last Filed: 11/15/24 07:53> Related Data Allergies/adverse reactions: Allergies Allergy/AdvReac Type Severity Reaction Status Date / Time shellfish derived Allergy Severe SWELLING Verified 11/13/24 19:11 shrimp Allergy Severe SWELLING Verified 11/13/24 19:11 iodine Allergy Unknown Unknown Verified 11/13/24 19:11 Contrast Media Allergy Severe SWELLING Uncoded 11/13/24 19:11 <Shane Smith DO - Last Filed: 11/15/24 07:53> Review of Systems 2 Review of Systems: All systems reviewed & are unremarkable except as noted in HPI and below <Shane Smith DO - Last Filed: 11/15/24 07:53> FORMERLY [facility], [facility] Past Medical History Medical History: Medical History PTSD (post-traumatic stress disorder) Internal bleeding hemorrhoids Abdominal pain Rectal bleeding Hemoglobin 15.4 with iron 113 with 39% saturation and ferritin 118 on 06/12/2022. secondary to internal hemorrhoids, resolved Candidiasis of genitalia Overweight (BMI 25.0-29.9) Chronic depression GI bleeding Normal EGD and colonoscopy on 06/27/2022. Obesity (BMI 30.0-34.9) Irritable bowel syndrome with diarrhea (~12/04/21) TURNER (dyspnea on exertion) Obesity Hypertension PAF (paroxysmal atrial fibrillation) Pulmonary embolism A-fib Myocarditis due to 2019 novel coronavirus Elevated troponin Hypokalemia Chest pain COVID-19 (~06/12/21) Seasonal allergic rhinitis Chronic cough Mixed hyperlipidemia (02/01/21) Total cholesterol 202, triglycerides 142, HDL 37, LDL 138 on 06/12/2022. Microscopic hematuria (02/01/21) 1+ blood with 3- 10 RBCs and urinalysis 06/12/2022. Folic acid deficiency (02/01/21) Level low at 5.2 on Vitamin B12 deficiency anemia (02/01/21) level low at 298 with goal greater than 400 on 06/12/2022. 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 Primary hypertension <DO Rosalino Collins Last Filed: 11/15/24 07:53> Family History Family History: Family History Mother Patient's mother is , Onset Age: 69 Father Patient's father is , Onset Age: 73 <DO Rosalino Collins Last Filed: 11/15/24 07:53> Social History Social History: Social History Years smoked: 1 Smoking status: Former smoker Tobacco type: cigarettes Second hand tobacco smoke exposure: No Alcohol intake: current Drinks per week: 1 Alcohol use details: wine occasionally Substance use: current Substance use type: marijuana Current Housing: Decline to Answer Concerned About Future Housing: Decline to Answer Difficulty Paying Gas/Electric Bills: Decline to Answer Difficulty Paying for Meds: Decline to Answer Currently Unemployed: Decline to Answer Education: Decline to Answer Difficulty w/ Childcare or Family Care: Decline to Answer Living arrangements: with family Gender identity (if verbalized by the patient): Male Sexual Orientation (if Verbalized by the Patient): Straight or Heterosexual Spiritual care concerns: No <DO Rosalino Collins Last Filed: 11/15/24 07:53> Exam 2 Const: General: cooperative, healthy appearing, comfortable, no acute distress, well developed, alert, awake and Physically active <Shane Smith, DO - Last Filed: 11/15/24 07:53> Orientation/consciousness: oriented to person, oriented to place and oriented to time <Shane Smith, DO - Last Filed: 11/15/24 07:53> HENMT: Head: normal to inspection, normocephalic and atraumatic <Shane Smith, DO - Last Filed: 11/15/24 07:53> Ears: hearing grossly normal bilaterally and external ears normal <Shane Smith, DO - Last Filed: 11/15/24 07:53> Face/Nose/Sinus: Normal external nose present <Shane Smith, DO - Last Filed: 11/15/24 07:53> Eyes: General: appearance normal, both eyes and all related structures < Shane Smith, DO - Last Filed: 11/15/24 07:53> Periorbital: periorbital findings normal <Shane Smith, DO - Last Filed: 11/15/24 07:53> Sclera: sclerae normal <Shanepercy Smith, DO - Last Filed: 11/15/24 07:53> Pupils: Equal, round and reactive pupils present <Shanepercy Smith, DO - Last Filed: 11/15/24 07:53> Neck: Neck: normal visual inspection <Shane Smith DO - Last Filed: 11/15/24 07:53> Chest: Chest palpation & inspection: normal inspection of the chest <Shane Smith, DO - Last Filed: 11/15/24 07:53> Resp: Effort & Inspection: normal respiratory effort, able to speak in complete sentences and no respiratory distress <Shane Smith, DO - Last Filed: 11/15/24 07:53> Auscultation: clear to auscultation bilaterally <Shane Smith, DO - Last Filed: 11/15/24 07:53> Cardio: Jugular venous distension: no JVD <Shane Smith, DO - Last Filed: 11/15/24 07:53> Rate: regular rate <Shane Smith DO - Last Filed: 11/15/24 07:53> Rhythm: regular rhythm <Shane Smith DO - Last Filed: 11/15/24 07:53> GI: Inspection: normal to inspection <Shane Smith DO - Last Filed: 11/15/24 07:53> GI Palp: Yes Soft to palpation <Shane Smith DO - Last Filed: 11/15/24 07:53> Auscultation: normal bowel sounds <Shane Smith DO - Last Filed: 11/15/24 07:53> Skin: General skin exam: normal color and no rashes or lesions noted <Shane Smith - Last Filed: 11/15/24 07:53> Neuro: General: oriented to person, oriented to place and oriented to time <Shane Smith - Last Filed: 11/15/24 07:53> Cranial nerves: Yes Equal, round and reactive pupils present <Shane Smith DO - Last Filed: 11/15/24 07:53> Extrem: General: normal to inspection <Shane Smith - Last Filed: 11/15/24 07:53> Course Course Emergency Course: Ordered labs, EKG, CXR and nitro. EKG showed NSR with a rate of 78, normal axis and no ST elevation or depression Troponin was elevated at 157, other labs are WNL. Given aspirin and NItro. BP and CP improved with Nitro. Differential includes NSTEMI vs hypertensive emergency. Repeat trop ordered at 3 hours. <Shane Smith DO - Last Filed: 11/15/24 07:53> UTILITY FORESTER/PA Physician Supervision 19:00 - This patient was signed out to me by previous ED physician, Dr. Smith pending repeat troponin with anticipated transfer. 21:25 - Repeat troponin 146. I suspect the patient's Pain and troponin elevation is related to hypertensive emergency 21:32 - Staff contacted [facility]. There are currently no available intermediate medical unit beds. The patient requested [facility] as an alternative. I spoke with [facility] coordinator are in route with who will contact the on-call hospitalist. 22:07 - I discussed the patient with [facility] hospitalist, Dr. Mak who accepts transfer pending a bed. 22:40 - I discussed the patient with [facility] administrative project coordinator THERESA Mcmahon. 22:59 - I discussed the patient with [facility] hospitalist Dr. Padilla who accepts transfer. <Saurabh Vincent MD - Last Filed: 11/14/24 00:05> Vital Signs Vital signs: Vital Signs Temperature 97.9 F 11/13/24 17:11 Pulse Rate 98 11/13/24 17:11 Respiratory Rate 18 11/13/24 17:11 Blood Pressure 207/87 H 11/13/24 17:11 Pulse Oximetry 95 11/13/24 17:11 Oxygen Delivery Room Air 11/13/24 17:11 Temperature 97.9 F 11/13/24 17:11 Pulse Rate 67 11/14/24 00:05 Respiratory Rate 18 11/14/24 00:01 Blood Pressure 131/81 11/14/24 00:00 Pulse Oximetry 97 11/13/24 23:31 Oxygen Delivery Room Air 11/13/24 23:00 <Shane Smith DO - Last Filed: 11/15/24 07:53> Vital Signs Temperature 97.9 F 11/13/24 17:11 Pulse Rate 98 11/13/24 17:11 Respiratory Rate 18 11/13/24 17:11 Blood Pressure 207/87 H 11/13/24 17:11 Pulse Oximetry 95 11/13/24 17:11 Oxygen Delivery Room Air 11/13/24 17:11 Temperature 97.9 F 11/13/24 17:11 Pulse Rate 67 11/14/24 00:05 Respiratory Rate 18 11/14/24 00:01 Blood Pressure 131/81 11/14/24 00:00 Pulse Oximetry 97 11/13/24 23:31 Oxygen Delivery Room Air 11/13/24 23:00 <Saurabh Vincent MD - Last Filed: 11/14/24 00:05> Medical Decision Making Vital Signs Vital Signs: Vital Signs Temperature 97.9 F 11/13/24 17:11 Pulse Rate 98 11/13/24 17:11 Respiratory Rate 18 11/13/24 17:11 Blood Pressure 207/87 H 11/13/24 17:11 Pulse Oximetry 95 11/13/24 17:11 Oxygen Delivery Room Air 11/13/24 17:11 Temperature 97.9 F 11/13/24 17:11 Pulse Rate 67 11/14/24 00:05 Respiratory Rate 18 11/14/24 00:01 Blood Pressure 131/81 11/14/24 00:00 Pulse Oximetry 97 11/13/24 23:31 Oxygen Delivery Room Air 11/13/24 23:00 <Shane Smith DO - Last Filed: 11/15/24 07:53> Vital Signs Temperature 97.9 F 11/13/24 17:11 Pulse Rate 98 11/13/24 17:11 Respiratory Rate 18 11/13/24 17:11 Blood Pressure 207/87 H 11/13/24 17:11 Pulse Oximetry 95 11/13/24 17:11 Oxygen Delivery Room Air 11/13/24 17:11 Temperature 97.9 F 11/13/24 17:11 Pulse Rate 67 11/14/24 00:05 Respiratory Rate 18 11/14/24 00:01 Blood Pressure 131/81 11/14/24 00:00 Pulse Oximetry 97 11/13/24 23:31 Oxygen Delivery Room Air 11/13/24 23:00 <Saurabh Vincent MD - Last Filed: 11/14/24 00:05> Lab Data Result diagrams: 11/13/24 17:34 11/13/24 17:34 <Shane Smith DO - Last Filed: 11/15/24 07:53> Labs: Lab Results 11/13/24 11/13/24 Range/Units 17:34 20:34 WBC 17.1 H (4.8-10.8) K/mm3 RBC 4.56 L (4.70-6.10) M/mm3 Hgb 14.0 (14.0-18.0) g/dL Hct 41.4 (40.0-54.0) % MCV 90.8 (78.0-102.0) fL MCH 30.7 (27.0-31.0) pg MCHC 33.8 (32-36) g/dL RDW 13.3 (11.6-14.4) % Plt Count 326 (150-420) K/mm3 MPV 9.8 (8.7-11.0) fl Immature Gran % (Auto) 0.8 H (0.0-0.0) % Neut % (Auto) 76.9 H (50.0-70.0) % Lymph % (Auto) 14.8 L (18.0-42.0) % [place] % (Auto) 6.2 (2.0-11.0) % Eos % (Auto) 0.9 L (1.0-6.0) % Baso % (Auto) 0.4 (0.0-1.0) % Lymph # (Auto) 2.53 (1.10-4.50) K/mm3 [place] # (Auto) 1.07 H (0.10-0.90) K/mm3 Eos # (Auto) 0.15 (0.02-0.50) K/mm3 Baso # (Auto) 0.06 (0.00-0.10) K/mm3 Abs Immat Gran (auto) 0.14 H (0.00-0.00) K/mm3 Absolute Neuts (auto) 13.19 H (1.70-7.20) K/mm3 Absolute Nucleated RBC 0.00 (0.00-0.00) K/mm3 Nucleated RBC % 0.0 (0-0.0) % PT 10.4 (9.50-12.1) Seconds INR 0.9 Sodium 138 (136-145) mmol/L Potassium 3.6 (3.5-5.1) mmol/L Chloride 102 (98-108) mmol/L Carbon Dioxide 27 (21-32) mmol/L Anion Gap 9 (4-12) mmol/L BUN 14 (7-18) mg/dL Creatinine 0.94 (0.70-1.30) mg/dL Estim Creat Clear Calc 85 ml/min Estimated GFR > 60 (59 - ) Glucose 126 H (70-99) mg/dL Calculated Osmolality 288 (285-295) mOsm/kg Calcium 8.8 (8.5-10.1) mg/dL Total Bilirubin 0.5 (0.00-1.00) mg/dL AST 15 (15-37) U/L ALT 22 (16-63) U/L Alkaline Phosphatase 105 (46-116) U/L Troponin I 157.2 H* 146.1 H* (0.00-60.4) ng/L NT-Pro-B Natriuret Pep 26 (0-125) pg/mL Total Protein 7.8 (6.4-8.2) g/dL Albumin 3.9 (3.4-5.0) g/dL Lipase 21 (16-77) U/L Urine Opiates Screen Negative (Negative) Urine Methadone Screen Negative (Negative) Ur Barbiturates Screen Negative (Negative) Ur Phencyclidine Scrn Negative (Negative) Ur Amphetamine Screen Negative (Negative) U Benzodiazepines Scrn Negative (Negative) Urine Cocaine Screen Negative (Negative) U Cannabinoids Screen Positive A (Negative) <Shane Smith, DO - Last Filed: 11/15/24 07:53> Lab Results 11/13/24 11/13/24 Range/Units 17:34 20:34 WBC 17.1 H (4.8-10.8) K/mm3 RBC 4.56 L (4.70-6.10) M/mm3 Hgb 14.0 (14.0-18.0) g/dL Hct 41.4 (40.0-54.0) % MCV 90.8 (78.0-102.0) fL MCH 30.7 (27.0-31.0) pg MCHC 33.8 (32-36) g/dL RDW 13.3 (11.6-14.4) % Plt Count 326 (150-420) K/mm3 MPV 9.8 (8.7-11.0) fl Immature Gran % (Auto) 0.8 H (0.0-0.0) % Neut % (Auto) 76.9 H (50.0-70.0) % Lymph % (Auto) 14.8 L (18.0-42.0) % [place] % (Auto) 6.2 (2.0-11.0) % Eos % (Auto) 0.9 L (1.0-6.0) % Baso % (Auto) 0.4 (0.0-1.0) % Lymph # (Auto) 2.53 (1.10-4.50) K/mm3 [place] # (Auto) 1.07 H (0.10-0.90) K/mm3 Eos # (Auto) 0.15 (0.02-0.50) K/mm3 Baso # (Auto) 0.06 (0.00-0.10) K/mm3 Abs Immat Gran (auto) 0.14 H (0.00-0.00) K/mm3 Absolute Neuts (auto) 13.19 H (1.70-7.20) K/mm3 Absolute Nucleated RBC 0.00 (0.00-0.00) K/mm3 Nucleated RBC % 0.0 (0-0.0) % PT 10.4 (9.50-12.1) Seconds INR 0.9 Sodium 138 (136-145) mmol/L Potassium 3.6 (3.5-5.1) mmol/L Chloride 102 (98-108) mmol/L Carbon Dioxide 27 (21-32) mmol/L Anion Gap 9 (4-12) mmol/L BUN 14 (7-18) mg/dL Creatinine 0.94 (0.70-1.30) mg/dL Estim Creat Clear Calc 85 ml/min Estimated GFR > 60 (59 - ) Glucose 126 H (70-99) mg/dL Calculated Osmolality 288 (285-295) mOsm/kg Calcium 8.8 (8.5-10.1) mg/dL Total Bilirubin 0.5 (0.00-1.00) mg/dL AST 15 (15-37) U/L ALT 22 (16-63) U/L Alkaline Phosphatase 105 (46-116) U/L Troponin I 157.2 H* 146.1 H* (0.00-60.4) ng/L NT-Pro-B Natriuret Pep 26 (0-125) pg/mL Total Protein 7.8 (6.4-8.2) g/dL Albumin 3.9 (3.4-5.0) g/dL Lipase 21 (16-77) U/L Urine Opiates Screen Negative (Negative) Urine Methadone Screen Negative (Negative) Ur Barbiturates Screen Negative (Negative) Ur Phencyclidine Scrn Negative (Negative) Ur Amphetamine Screen Negative (Negative) U Benzodiazepines Scrn Negative (Negative) Urine Cocaine Screen Negative (Negative) U Cannabinoids Screen Positive A (Negative) <Saurabh Vincent MD - Last Filed: 11/14/24 00:05> ECG Data EKG #2: Attestation: I personally reviewed and interpreted this ECG as follows: <Saurabh Vincent MD - Last Filed: 11/14/24 00:05> ECG completion date: 11/13/24 <Saurabh Vincent MD - Last Filed: 11/14/24 00:05> ECG completion time: 22:11 <Saurabh Vincent MD - Last Filed: 11/14/24 00:05> Prior ECG tracings: available for review <Saurabh Vincent MD - Last Filed: 11/14/24 00:05> Interpretation: Sinus bradycardia, rate 58, normal axis, no ST segment elevations or T-wave inversions concerning for ischemia, normal intervals with QTC of 409. < Saurabh Vincent MD - Last Filed: 11/14/24 00:05> Discharge Plan Discharge Clinical Impression: Elevated troponin, Chest pain, Hypertensive emergency <Shane Smith DO - Last Filed: 11/15/24 07:53> Patient Disposition: Acute Care Hospital <Shane Smith DO - Last Filed: 11/15/24 07:53> Condition: Serious <Shane Smith DO - Last Filed: 11/15/24 07:53> Patient Language: Tamazight <Shane Smith DO - Last Filed: 11/15/24 07:53> Prescriptions: No Action clotrimazole-betamethasone 1-0.05 % cream 1 applic TOPICAL BID 14 Days Qty: 45 1RF metoprolol succinate 100 mg tablet extended release 24 hr 100 mg PO DAILY Qty: 90 3RF escitalopram oxalate [Lexapro] 20 mg tablet 20 mg PO DAILY Qty: 90 3RF buspirone 15 mg tablet 15 mg PO TID Qty: 270 3RF irbesartan 300 mg tablet 300 mg PO DAILY Qty: 90 3RF hydrochlorothiazide 12.5 mg tablet 12.5 mg PO DAILY Qty: 90 3RF <Shane Smith DO - Last Filed: 11/15/24 07:53> Follow-up/Referrals: UNKNOWN,DOCTOR [Primary Care Provider] - <Shane Smith DO - Last Filed: 11/15/24 07:53>
[2024-11-13 17:38] LABS: Basophils Absolute Auto 0.06 K/mm3 (0.00-0.10); Basophils Percent Auto 0.4 % (0.0-1.0); Eosinophils Absolute Auto 0.15 K/mm3 (0.02-0.50); Eosinophils Percent Auto 0.9 % (1.0-6.0); Hematocrit 41.4 % (40.0-54.0); Immature Granulocyte Absolute 0.14 K/mm3 (0.00-0.00); Immature Granulocyte Percent A 0.8 % (0.0-0.0); Lymphocytes Absolute Auto 2.53 K/mm3 (1.10-4.50); Lymphocytes Percent Auto 14.8 % (18.0-42.0); Mean Corpuscular HGB Conc 33.8 g/dL (32-36); Mean Corpuscular Hemoglobin 30.7 pg (27.0-31.0); Mean Corpuscular Volume 90.8 fL (78.0-102.0); Mean Platelet Volume 9.8 fl (8.7-11.0); Monocytes Absolute Auto 1.07 K/mm3 (0.10-0.90); Monocytes Percent Auto 6.2 % (2.0-11.0); Neutrophils Absolute Auto 13.19 K/mm3 (1.70-7.20); Neutrophils Percent Auto 76.9 % (50.0-70.0); Platelet Count Result 326 K/mm3 (150-420); Red Blood Count 4.56 M/mm3 (4.70-6.10); Red Cell Distribution Width 13.3 % (11.6-14.4); White Blood Count 17.1 K/mm3 (4.8-10.8)
[2024-11-13 17:48] LABS: INR 0.9; Prothrombin Time 10.4 Seconds (9.50-12.1)
[2024-11-13 17:59] LABS: Alanine Aminotransferase 22 U/L (16-63); Albumin Level 3.9 g/dL (3.4-5.0); Alkaline Phosphatase 105 U/L (46-116); Anion Gap 9 mmol/L (4-12); Aspartate Amino Transferase 15 U/L (15-37); Bilirubin,Total 0.5 mg/dL (0.00-1.00); Blood Urea Nitrogen 14 mg/dL (7-18); Calcium 8.8 mg/dL (8.5-10.1); Carbon Dioxide 27 mmol/L (21-32); Chloride 102 mmol/L (98-108); Estimated CRCL calculation 85 ml/min; Estimated Glomerular Filt Rate > 60; Glucose 126 mg/dL (70-99); Lipase 21 U/L (16-77); NT Pro B Type Natriuretic Pept 26 pg/mL (0-125); Osmolality Calculated 288 mOsm/kg (285-295); Potassium 3.6 mmol/L (3.5-5.1); Sodium 138 mmol/L (136-145); Total Protein 7.8 g/dL (6.4-8.2)
[2024-11-13 18:00] LABS: Troponin I 157.2 ng/L (0.00-60.4)
--- OUTSIDE RECORDS SUMMARY | 2024-11-13 18:05 | XMS_ITS | Referral Summary ---
Author Organization [facility] C Address [address] [place] [address] Care Team Providers Care Pug Mill Operator Helper Name Role Phone [facility], Dank Melo Primary Care Pro vider Allergies Active Allergy Reactions Criticality Noted Date Comments Iodinated Contrast Media Swelling Medium 10/12/2018 Medications losartan (COZAAR) 25 mg tablet Take 25 mg by mouth store grocery merchandiser before breakfast Active busPIRone (BUSPAR) 15 mg tabletIndicatio ns:Generalized Anxiety Disorder Take 15 mg by mouth store grocery merchandiser before breakfast Active clomiPHENE (CLOMID) 50 mg tablet Take 25 mg by mouth store grocery merchandiser before breakfast Active multivitamin tablet,chewable Take 1 [...] (10/19/2018): Added automatically from request for surgery [id number] 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 region 10/12/2018 Overview (10/12/2018): Assessment & Plan (10/12/2018 2:09 PM MAPPER): Mr. 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 Not on file Not on file [...] on file Medical Devices Implanted Type Area Cement Mason Maintenance Device Identifier Shelf Expiration Date Model / Serial / Lot Core Link Anodyne 12mm Level 1 Spine Cervical Anterior Plate Bone - [id number] Implanted:Qty: 1 on 11/26/2018 by Corona Case MD at [facility] Plate N/A: Spine Cervical Core Link / / Core Link Anodyne 4mm 14mm Variable Angle Self Tap Spine Cervical Screw - [id number] Implanted:Qty: 4 on 11/26/2018 by Corona Case MD at [facility] Screw N/A: Spine Cervical Core Link / / [employer] 700-025 I Factor Allograft Putty Syringe Graft 2.5cc Bone - [id number] Implanted:Qty: 1 on 11/26/2018 by Corona Case MD at [facility] N/A: Cervical-Tho racic Spine [employer] 08/30/2021 700-025 / / [id number] C[employer] 3d Cervical [id number] 7 Deg - [id number] Implanted:Qty: 1 on 11/26/2018 by Corona Case MD at [facility] N/A: Cervical-Tho racic Spine Core Link [id number] 04/15/2023 [id number] / [id number] [place] [address] [address] [facility] Advance Directives For more information, please contact: [phone] * Full Code (Latest Code Status on File) Date Activated Date Inactivated Comments 11/26/2018 4:08 PM 11/26/2018 10:37 PM Care Teams Pug Mill Operator Helper Relationship Specialty Start Date End Date [facility] Melo [address] [place] [address] PCP - General Genetics 12/21/23
--- OUTSIDE RECORDS SUMMARY | 2024-11-13 18:05 | XMS_ITS | Clinical Summary ---
Author Organization [facility] C Address [address] [place] [address] Care Team Providers Care Wigs Salesperson Name Role Phone [facility], Dank Melo Primary Care Pro vider Allergies Active Allergy Reactions Criticality Noted Date Comments Iodinated Contrast Media Swelling Medium 10/12/2018 Medications losartan (COZAAR) 25 mg tablet Take 25 mg by mouth medical biller before breakfast Active busPIRone (BUSPAR) 15 mg tabletIndicatio ns:Generalized Anxiety Disorder Take 15 mg by mouth medical biller before breakfast Active clomiPHENE (CLOMID) 50 mg tablet Take 25 mg by mouth medical biller before breakfast Active multivitamin tablet,chewable Take 1 [...] (10/19/2018): Added automatically from request for surgery [id number] 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 region 10/12/2018 Overview (10/12/2018): Assessment & Plan (10/12/2018 2:09 PM FIELD ASSESSOR): Mr. 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 Not on file Not on file Not [...] this topic Medical Devices Implanted Type Area Milk Runner Device Identifier Shelf Expiration Date Model / Serial / Lot Core Link Anodyne 12mm Level 1 Spine Cervical Anterior Plate Bone - [id number] Implanted:Qty: 1 on 11/26/2018 by Corona Case MD at [facility] Plate N/A: Spine Cervical Core Link / / Core Link [id number] Anodyne 4mm 14mm Variable Angle Self Tap Spine Cervical Screw - [id number] Implanted:Qty: 4 on 11/26/2018 by Corona Case MD at [facility] Screw N/A: Spine Cervical Core Link / / [employer] 700-025 I Factor Allograft Putty Syringe Graft 2.5cc Bone - [id number] Implanted:Qty: 1 on 11/26/2018 by Corona Case MD at [facility] N/A: Cervical-Tho racic Spine [employer] 08/30/2021 700-025 / / [id number] [employer] 3d Cervical [id number] 7 Deg - [id number] Implanted:Qty: 1 on 11/26/2018 by Corona Case MD at [facility] N/A: Cervical-Tho racic Spine Core Link [id number] 04/15/2023 [id number] / / [id number] Insurance [employer] [place] Advance Directives For more information, please contact: [phone] * Full Code (Latest Code Status on File) Date Activated Date Inactivated Comments 11/26/2018 4:08 PM 11/26/2018 10:37 PM Care Teams Wigs Salesperson Relationship Specialty Start Date End Date [facility], Dank Melo [address] [place] [id number] PCP - General Genetics 12/21/23
--- OUTSIDE RECORDS SUMMARY | 2024-11-13 18:05 | XMS_ITS | Clinical Summary ---
Author Organization [facility] [employer] Address [address] [place] [address] Care Team Providers Care Javascript Application Developer Name Role Phone Car Tiwari MD Primary Care Provider [phone] Source Comments [facility] [employer],non-owned Affiliates and Associated Physician Practices is amultiple site organization consisting of ambulatory clinics and hospital sitesin [place], [place], [place] and [place]. This disclosure is being madepursuant to the Care Everywhere program and may not contain all information available regarding this patient. Last updated 18.[facility] [employer] Allergies No known active allergies Medications * [...] age to complete this topic Care Teams Javascript Application Developer Relationship Specialty Start Date End Date Car Tiwari MD PCP - General 06/22/18
--- OUTSIDE RECORDS SUMMARY | 2024-11-13 18:05 | XMS_ITS | Referral Summary ---
Author Organization [facility] [employer] Address [address] [place] [address] Care Team Providers Care Chips Screen Tender Name Role Phone Car Tiwari MD Primary Care Provider [phone] Source Comments [facility] [employer],non-owned Affiliates and Associated Physician Practices is amultiple site organization consisting of ambulatory clinics and hospital sitesin [place], [place], [place] and [place]. This disclosure is being madepursuant to the Care Everywhere program and may not contain all information available regarding this patient. Last updated 18.[facility] [employer] Allergies No known active allergies Medications * [...] of Treatment Not on file Care Teams Chips Screen Tender Relationship Specialty Start Date End Date Car Tiwari MD PCP - General 06/22/18
--- OUTSIDE RECORDS SUMMARY | 2024-11-13 18:05 | XMS_ITS | Continuity of Care Document ---
Author Name [facility] Organization [facility] Care Team Providers Care Data Review Specialist Name Role Phone [facility] Unavailable Unavailable Problems Combined list of problems from Department of Defense and Veterans Affairs facilities. It does not include entries that were removed or entered in error. Problem Status Onset Date Problem Type Date of Resolution Comments Source Anxiety Active Condition [facility] Exposure to potentially hazardous substance Active Condition [facility] LUMBAGO Active Condition [facility] Posttraumatic stress disorder Active Condition [facility] Diagnosis: ICD-10-CM F43.10 Post-traumatic stress disorder, unspecified Active Diagnosis [facility] Diagnosis: ICD-10-CM F43.23 Adjustment disorder with mixed anxiety and depressed mood Active Diagnosis [facility] Diagnosis: ICD-10-CM F33.0 Major depressive disorder, recurrent, mild Active Diagnosis [facility] Diagnosis: ICD-10-CM F43.12 Post-traumatic stress disorder, chronic Active Diagnosis [facility] Diagnosis: ICD-10-CM F41.9 Anxiety disorder, unspecified Active Diagnosis [facility] Diagnosis: ICD-10-CM H25.13 Age-related nuclear cataract, bilateral Active Diagnosis [facility] Diagnosis: ICD-10-CM M77.02 Medial epicondylitis, left elbow Active Diagnosis [facility] Diagnosis: ICD-10-CM M54.50 Low back pain, unspecified Active Diagnosis [facility] Diagnosis: ICD-10-CM M79.643 Pain in unspecified hand Active Diagnosis [facility] Diagnosis: ICD-10-CM G89.29 Other chronic pain Active Diagnosis [facility] Medications Combined list of outpatient medications from Department of Defense and [facility] Affairs facilities.Medications provided include 1) outpatient medications from the last 15 months, and 2) patient-reported medications. Medication Details Route Status Patient Instructions Prescription Expires Prescription Number Last Dispense Date Ordering Provider Order Date Order Qty Source ESCITALOPRA M OXALATE 20MG TAB TAKE ONE AND ONE-HALF TABLETS BY MOUTH ONCE A DAY ORAL ACTIVE 03/01/2025 [id number] SHAYAN ENCISO [address] [facility] HYDROXYZINE HCL 10MG TAB TAKE ONE TABLET BY MOUTH THREE TIMES A DAY NEEDED *MAY CAUSE DROWSINE SS* ORAL ACTIVE 03/01/2025 [id number] 5 SHAYAN ENCISO [address] [facility] IRBESARTAN 300MG TAB TAKE ONE TABLET BY MOUTH ONCE A DAY FOR HIGH BLOOD PRESSURE ORAL 03/31/2024 [id number] ME HÉCTOR TTISA 2022 90 [facility] MELOXICAM 15MG TAB TAKE ONE TABLET BY MOUTH ONCE A DAY FOR PAIN ORAL 07/24/2024 [id number] ME HÉCTOR TTISA 2022 90 [facility] ROSUVASTATI N CA 20MG TAB TAKE ONE-HALF TABLET BY MOUTH EVERY EVENING FOR HIGH CHOLESTE ROL ORAL 04/02/2024 [id number] 4 ME HÉCTOR TTISA 2022 45 [facility] Allergies, Adverse Reactions, Alerts Combined list of allergies from Department of Defense and Veterans Affairs facilities. It does not include entries that were removed or entered in error. Substance Category Reaction Severity Reaction type Status Date Reported Comments Source IODINATED INTRAVASC CONTRAST Propensity to adverse reactions to drug (finding) Dyspnea SEVERE active 3 [facility] Results Combined list of recent chemistry, [...] Mar 31, 2023 01:10 PM Reporting Lab: [facility] [address] [place] [phone] Performing Lab: [facility] [address] [place] [phone] [facility] TRICHOMON PCR (STL) TRICHOMONAS VAGINALIS RRNA [PRESENCE] [...] its performance characteris tics determined by the [facility]. It has not been cleared or approved by the [place] Food and Drug Administrat ion (FDA). Ordering Provider: CLARENCE ANAYA CON Report Released Date/Time: Apr 21, 2023 09:27 AM Reporting Lab: [facility] [address] [facility] [phone] Performing Lab: [facility] [address] [place] [phone] [facility] BASIC METABOLIC PANEL CREATININE [MASS/VOLUM E] IN SERUM OR PLASMA 0.83 mg/dL 0.7 - 1.3 03/31 Specimen Type: PLASMA Comment: No hemolysis noted. Ordering Provider: CLARENCE ANAYA CON Report Released Date/Time: Mar 31, 2023 01:10 PM Reporting Lab: [facility] [address] [facility] [phone] Performing Lab: [facility] [address] [facility] [phone] [facility] BASIC METABOLIC PANEL UREA NITROGEN [MASS/VOLUM E] IN SERUM OR PLASMA 9 mg/dL 9 - 25 08/01 /2023 Specimen Type: PLASMA Comment: No hemolysis noted. Ordering Provider: CLARENCE ANAYA CON Report Released Date/Time: Mar 31, 2023 01:10 PM Reporting Lab: [facility] [address] [place] [phone] Performing Lab: [facility] [address] [place] [phone] [facility] BASIC METABOLIC PANEL GLUCOSE [MASS/VOLUM E] IN SERUM OR PLASMA 94 mg/dL 72 - 99 03/31 Specimen Type: PLASMA Comment: No hemolysis noted. Ordering Provider: CLARENCE ANAYA CON Report Released Date/Time: Mar 31, 2023 01:10 PM Reporting Lab: [facility] [address] [place] [phone] Performing Lab: [facility] [address] [place] [phone] [facility] BASIC METABOLIC PANEL SODIUM [MOLES/VOLU ME] IN SERUM OR PLASMA 138 meq/L 136 - 145 03/31 Specimen Type: PLASMA Comment: No hemolysis noted. Ordering Provider: CLARENCE ANAYA CON Report Released Date/Time: Mar 31, 2023 01:10 PM Reporting Lab: [facility] [address] [place] [phone] Performing Lab: [facility] [address] [place] [phone] [facility] BASIC METABOLIC PANEL POTASSIUM [MOLES/VOLU ME] IN SERUM OR PLASMA 4.0 meq/L 3.5 - 5 03/31 Specimen Type: PLASMA Comment: No hemolysis noted. Ordering Provider: CLARENCE ANAYA CON Report Released Date/Time: Mar 31, 2023 01:10 PM Reporting Lab: [facility] [address] [place] [phone] Performing Lab: [facility] [address] [place] [phone] [facility] BASIC METABOLIC PANEL CHLORIDE [MOLES/VOLU ME] IN SERUM OR PLASMA 105 meq/L 98 - 107 03/31 Specimen Type: PLASMA Comment: No hemolysis noted. Ordering Provider: CLARENCE ANAYA CON Report Released Date/Time: Mar 31, 2023 01:10 PM Reporting Lab: [address] [phone] Performing Lab: [address] [phone] [place] [address] BASIC METABOLIC PANEL CARBON DIOXIDE, TOTAL [MOLES/VOLU ME] IN SERUM OR PLASMA 26 meq/L 22 - 31 03/31 Specimen Type: PLASMA Comment: No hemolysis noted. Ordering Provider: CLARENCE ANAYA CON Report Released Date/Time: Mar 31, 2023 01:10 PM Reporting Lab: [address] [phone] Performing Lab: [address] [phone] [place] [address] BASIC METABOLIC PANEL CALCIUM [MASS/VOLUM E] IN SERUM OR PLASMA 9.5 mg/dL 8.4 - 10.4 03/31 Specimen Type: PLASMA Comment: No hemolysis noted. Ordering Provider: CLARENCE ANAYA CON Report Released Date/Time: Mar 31, 2023 01:10 PM Reporting Lab: [address] [address] Performing Lab: [address] [phone] [facility] BASIC METABOLIC PANEL GLOMERULAR FILTRATION RATE/1.73 SQ M.PREDICTED [VOLUME RATE/AREA] IN SERUM, PLASMA OR BLOOD BY CREATININE- BASED FORMULA (CKD-EPI 2020) 103.4 <60 - 60 03/31 Specimen Type: PLASMA Comment: No hemolysis noted. Ordering Provider: CLARENCE ANAYA CON Report Released Date/Time: Mar 31, 2023 01:10 PM Reporting Lab: [address] [phone] Performing Lab: [facility] [address] [place] [phone] [facility] GC & CHLAMYDIA PCR (STL-PB) NEISSERIA GONORRHOEAE [...] Mar 31, 2023 01:10 PM Reporting Lab: [facility] [address] [place] [phone] Performing Lab: [address] [address] [facility] GC & CHLAMYDIA PCR (STL-PB) CHLAMYDIA SP [...] Mar 31, 2023 01:10 PM Reporting Lab: [facility] [address] [facility] [address] Performing Lab: [facility] [address] [place] [phone] [facility] HGA1C HEMOGLOBIN A1C/HEMOGLO BIN.TOTAL IN BLOOD 6.4 4.0 - 6.0 03/31 H Specimen Type: BLOOD No comment entered. Ordering Provider: CLARENCE ANAYA CON Report Released Date/Time: Mar 31, 2023 01:10 PM Reporting Lab: [facility] [address] [place] [phone] Performing Lab: [address] [address] [facility] HIV COMBO FOURTH GENERATIO N (STL) HIV 1+2 AB+HIV1 P24 AG [PRESENCE] IN SERUM OR PLASMA BY IMMUNOASSAY Nonreact lillian 03/31 Specimen Type: SERUM No comment entered. Ordering Provider: CLARENCE ANAYA CON Report Released Date/Time: Mar 31, 2023 01:10 PM Reporting Lab: [facility] [address] [place] [phone] Performing Lab: [address] [address] [facility] LIPID PANEL (STL) CHOLESTEROL [MASS/VOLUM E] IN SERUM OR PLASMA 237 mg/dL 0 - 200 03/31 H Specimen Type: PLASMA Comment: No hemolysis noted. Ordering Provider: CLARENCE ANAYA CON Report Released Date/Time: Mar 31, 2023 01:10 PM Reporting Lab: [facility] [address] [place] [phone] Performing Lab: [address] [address] [facility] LIPID PANEL (L) TRIGLYCERID E [MASS/VOLUM E] IN SERUM OR PLASMA 175 mg/dL 0 - 150 03/31 H Specimen Type: PLASMA Comment: No hemolysis noted. Ordering Provider: CLARENCE ANAYA CON Report Released Date/Time: Mar 31, 2023 01:10 PM Reporting Lab: [address] [phone] Performing Lab: [address] [phone] [place] [address] LIPID PANEL (STL) CHOLESTEROL IN LDL [MASS/VOLUM E] IN SERUM OR PLASMA BY CALCULATION 164 mg/dL 03/31 Specimen Type: PLASMA Comment: No hemolysis noted. Ordering Provider: CLARENCE ANAYA CON Report Released Date/Time: Mar 31, 2023 01:10 PM Reporting Lab: [address] [phone] Performing Lab: [address] [phone] [place] [address] LIPID PANEL (STL) CHOLESTEROL IN HDL [MASS/VOLUM E] IN SERUM OR PLASMA 38 mg/dL 40 03/31 L Specimen Type: PLASMA Comment: No hemolysis noted. Ordering Provider: CLARENCE ANAYA CON Report Released Date/Time: Mar 31, 2023 01:10 PM Reporting Lab: [address] [phone] Performing Lab: [address] [phone] [place] [address] PROST. SPECIFIC AG.(PB-ST L) PROSTATE SPECIFIC AG [...] Mar 31, 2023 01:10 PM Reporting Lab: [address] [phone] Performing Lab: [place] [phone] [facility] TSH (MA-PB-ST L) THYROTROPIN [UNITS/VOLU ME] IN SERUM OR PLASMA 1.352 u[IU]/mL 0.47 - 5 03/31 Specimen Type: SERUM Comment: No hemolysis noted. Ordering Provider: CLARENCE ANAYA CON Report Released Date/Time: Mar 31, 2023 01:10 PM Reporting Lab: [facility] [address] [place] [phone] Performing Lab: [address] [phone] [place] [address] VITAMIN D, 25-HYDROX Y 25-HYDROXYV ITAMIN D3 [...] Mar 31, 2023 01:10 PM Reporting Lab: [address] [address] Performing Lab: [address] [phone] [place] [address] Encounters Combined list of: 1) Encounters from Department of [facility] Affairs facilities going backup to the last 18 months, not all [place] inpatient encounters are included; 2) Encounters from the Department of [facility] facilities going backup to 280 months. Location Location Details Encounter Type Encounter Number Reason For Visit Attending Provider ADM Date DC Date Status Disposition Source [facility] Outpatient Encounter [id number] 05/21 [facility] Outpatient Encounter [id number] 07/07 [facility] HC PRO PHONE CALL 5-10 MIN [id number] Diagnos is: ICD-10- CM M54.50 Low back pain, unspeci fied MAYDEN,CHR ISTINE M 07/17 OFFICE O/P EST MOD 30-39 MIN [id number] Diagnos is: ICD-10- CM M77.02 Medial epicond ylitis, left elbow ANAYA,MET ROSANA 07/24 [facility] Outpatient Encounter [id number] ANAYA,MET ROSANA 07/31 [facility] PSYTX W PT 30 MINUTES [id number] Diagnos is: ICD-10- CM G89.29 Other chronic pain Layo OLMEDO J 08/03 [facility] ORTHOTIC MGMT&TRAIN G 1ST ENC [id number] Diagnos is: ICD-10- CM M79.643 Pain in unspeci fied hand NAHEED BLANCAS D 08/05 [facility] Outpatient Encounter [id number] 08/10 [facility] PSYTX W PT 30 MINUTES [id number] Diagnos is: ICD-10- CM G89.29 Other chronic pain Layo OLMEDO ERA J 08/17 [facility] Outpatient Encounter [id number] 08/21 [facility] THERAPEUTI C EXERCISES [id number] Diagnos is: ICD-10- CM M79.643 Pain in unspeci fied hand NAHEED BLANCAS IKA D 09/02 [facility] Outpatient Encounter [id number] 09/03 [facility] HC PRO PHONE CALL 11-20 MIN [id number] Diagnos is: ICD-10- CM M54.50 Low back pain, unspeci fied MAYDEN,CHR ISTINE M 09/08 [facility] W PT 30 MINUTES [id number] Diagnos is: ICD-10- CM G89.29 Other chronic pain Layo OLMEDO J 09/09 [facility] THERAPEUTI C EXERCISES [id number] Diagnos is: ICD-10- CM M79.643 Pain in unspeci fied hand NAHEED BLANCASA D 09/23 [facility] SELF CARE MNGMENT TRAINING [id number] Diagnos is: ICD-10- CM M54.50 Low back pain, unspeci fied AUDRA,GIFTY TIN J 11/03 [facility] OFF/OP CNSLTJ NEW/EST MOD 40 [id number] Diagnos is: ICD-10- CM M77.02 Medial epicond ylitis, left elbow PLACIDOGONZALO SALES R 11/04 [facility] Outpatient Encounter [id number] 11/11 [facility] Outpatient Encounter [id number] 11/23 [facility] Outpatient Encounter [id number] 12/20 [facility] Outpatient Encounter [id number] 12/20 [facility] Outpatient Encounter [id number] [place] ISSUSY M 01/05 [facility] Outpatient Encounter [id number] BRITTANY QUINTANILLA 01/07 [facility] Outpatient Encounter [id number] 01/07 [facility] OFFICE O/P NEW MOD 45 MIN [id number] Diagnos is: ICD-10- CM H25.13 Age-rel ated nuclear catarac t, bilnirmala al Bibi CURTIS 02/08 [facility] Outpatient Encounter [id number] Diagnos is: ICD-10- CM F41.9 Anxiety disorde r, unspeci fied MET HÉCTOR ROSANA 02/09 [facility] Outpatient Encounter [id number] 02/09 [facility] Outpatient Encounter [id number] BRANNON ROSE 02/09 [facility] Outpatient Encounter [id number] CHINYERE ROCHA 02/28 [facility] OFFICE O/P NEW MOD 45 MIN [id number] Diagnos is: ICD-10- CM F43.23 Adjustm ent disorde r with mixed anxiety and depress ed mood WALKER,OCT IE 02/28 [facility] Outpatient Encounter [id number] 03/01 [facility] Outpatient Encounter [id number] BRITTANY QUINTANILLA 03/18 [facility] Outpatient Encounter [id number] DAUS,MADHAVI H A 04/18 [facility] OFFICE O/P EST MOD 30 MIN [id number] Diagnos is: ICD-10- CM F43.23 Adjustm ent disorde r with mixed anxiety and depress ed mood WALKER,OCT IE 04/22 [facility] PSY EVALUATION OF RECORDS [id number] Diagnos is: ICD-10- CM F43.12 Post-tr aumatic stress disorde r, chronic DAUS,MADHAVI H A 05/30 [facility] Outpatient Encounter [id number] DAUS,MADHAVI H A 05/30 [facility] PSYTX W PT 30 MINUTES [id number] Diagnos is: ICD-10- CM F33.0 Major depress lillian disorde r, recurre nt, mild DAUS,MADHAVI H A 07/13 [facility] OFFICE O/P EST MOD 30 MIN [id number] Diagnos is: ICD-10- CM F43.23 Adjustm ent disorde r with mixed anxiety and depress ed mood MARCELL ENCISO IE 07/25 [facility] Outpatient Encounter [id number] 09/26 [facility] OFFICE O/P EST MOD 30 MIN [id number] Diagnos is: ICD-10- CM F43.10 Post-tr aumatic stress disorde r, unspeci fied MARCELL ENCISO IE 10/25 [facility] Social History Combined list of available smoking, tobacco, and other social history from Department of Defense and Veterans Affairs facilities. Social History Type Response Date Comment Sourc e Tobacco smoking status NHIS VA-TOBACCO FORMER USER 02/29/2024 [facility] History of tobacco use [place]-TO[place] QUIT 1 5 YRS OR MORE 02/29/2024 [facility] History of tobacco use [facility]-TOBACCO FORMER USER 03/27/2023 [facility] Plan of Care List of future care activities from Department of Veterans Affairs facilities. Additional future care activities may be listed in the Assessment and Plan section. Date/Time Care Activity Care Activity Detail Facili ty 01/24/2025 AMBULATORY - PSYCHIATRY [facility]
--- OUTSIDE RECORDS SUMMARY | 2024-11-13 18:05 | XMS_ITS | Clinical Summary ---
Author Organization [facility] Address [facility] [place] [address] Care Team Providers Care Mail Teller Name Role Phone Non-Staff, Provider Primary Care [...] Comments Blood Pressure 166/87 08/07/2023 7:22 AM DIRECTOR AUTOMOTIVE Pulse 63 08/07/2023 7:22 AM DIRECTOR AUTOMOTIVE Temperature 36.8 C (98.2 F) 08/07/2023 7:22 AM DIRECTOR AUTOMOTIVE Respiratory Rate 18 08/07/2023 7:22 AM DIRECTOR AUTOMOTIVE Oxygen Saturation 100% 08/07/2023 7:22 AM DIRECTOR AUTOMOTIVE Inhaled Oxygen Concentration - - Weight 92.1 kg (203 lb) 08/07/2023 7:22 AM DIRECTOR AUTOMOTIVE Height 182.9 cm (6') 08/07/2023 7:22 AM DIRECTOR AUTOMOTIVE Body Mass Index 27.53 08/07/2023 7:22 AM DIRECTOR AUTOMOTIVE Plan of Treatment Health Maintenance Due Date [...] patient's age to complete this topic Insurance [facility] Care Teams Mail Teller Relationship Specialty Start Date End Date Non-Staff, Provider PCP - General UNKNOWN PHYSICIAN SPECIALTY 07/30/23
--- OUTSIDE RECORDS SUMMARY | 2024-11-13 18:05 | XMS_ITS | Patient Health Summary ---
Author Organization [facility] Address [address] [place] [address] Care Team Providers Care Insecticide Supervisor Name Role Phone Car Tiwari MD Primary Care Provider [phone] Note from [facility],non-owned Affiliates and Associated Physician Practices is amultiple site organization consisting of ambulatory clinics and hospital sitesin [place], [place], [place] and [place]. This disclosure is being madepursuant to the Care Everywhere program and may not contain all information available regarding this patient. Last updated 18.[facility] Allergies No known active allergies [...] Region Laterality Modality Pelvis, Lower Extremity [facility] 03/17/2016 10:0 5 AM CDT [...] - 7.14 x10E9/L 03/17/2016 9:39 AM CDT [facility] Lymphocytes Absolute 1.90 1.07 - 3.94 x10E9/L 03/17/2016 9:39 AM CDT [facility] Monocytes Absolute 0.44 0.26 - 1.07 x10E9/L 03/17/2016 9:39 AM CDT [facility] Eosinophils Absolute 0.10 0 - 0.47 x10E9/L 03/17/2016 9:39 AM CDT [facility] Basophils Absolute 0.04 0 - 0.08 x10E9/L 03/17/2016 9:39 AM CDT [facility] Immature Granulocytes Absolute 0.04 0.00 - 0.06 x10E9/L 03/17/2016 9:39 AM CDT [facility] nRBC Auto 0 /100 WBC 03/17/2016 9:39 AM CDT [facility] Blood BLOOD SPECIMEN / Unknown 03/17/2016 9:23 AM CDT 03/17/2016 9:36 AM CDT Hugo Nur MD LAB - HEMATOLOGY ORD ERABLES [facility] [address] [place] [address] * (ABNORMAL) COMPREHENSIVE METABOLIC PANEL (03/17/2016 9:23 AM CDT) Glucose 129(H) 74 - 106 mg/dL 03/17/2016 9:55 AM CDT [facility] Sodium 141 136 - 145 mmol/L 03/17/2016 9:55 AM CDT [facility] Potassium 3.6 3.5 - 5.1 mmol/L 03/17/2016 9:55 AM CDT [facility] Chloride 104 98 - 107 mmol/L 03/17/2016 9:55 AM CDT [facility] CO2 26 22 - 31 mmol/L 03/17/2016 9:55 AM CDT [facility] Calcium 9.6 8.5 - 10.1 mg/dL 03/17/2016 9:55 AM CDT [facility] Anion Gap 11 5 - 20 mmol/L 03/17/2016 9:55 AM CDT [facility] BUN 11 7 - 21 mg/dL [...] MD LAB - CHEMISTRY SYDNIE PEÑA [facility] Organization Address City/State/ZIP Co de Phone Number [facility] [address] [place] [phone] Care Teams Insecticide Supervisor Relationship Specialty Start Date End Date Car Tiawri MD PCP - General 06/22/18
[2024-11-13] MEDS: NITROGLYCERIN SL 0.4 MG TABLET SUBLINGUAL (18:08)
[2024-11-13] MEDS: ASPIRIN 81 MG CHEWABLE TABLET 324 MG PO (18:21)
[2024-11-13 19:15] LABS: Amphetamine Screen Urine Negative (Negative); Barbiturate Screen Urine Negative (Negative); Benzodiazepines Screen Urine Negative (Negative); Cannabinoid Screen Urine Positive (Negative); Cocaine Screen Urine Negative (Negative); Methadone Screen Urine Negative (Negative); Opiate Screen Urine Negative (Negative); Phencyclidine Screen Urine Negative (Negative)
[2024-11-13 21:07] LABS: Troponin I 146.1 ng/L (0.00-60.4)
--- NOTE | 2024-11-13 22:07 | ECG_ITS ---
Test Date: 2024-11-13 17:19:05 Measurements Intervals Douglas Rate: 78 P: 54 DC: 128 QRS: 20 QRSD: 96 T: 62 QT: 383 QTc: 436 Interpretive Statements SINUS RHYTHM WITH SINUS ARRHYTHMIA RSR' IN V1 OR V2, PROBABLY NORMAL VARIANT No previous ECG available for comparison Electronically Signed On 11-14-2024 15:09:22 CDT by Pepe Mathews M.D.
[2024-11-14] VITALS: BP 131/81; PULSE 68; RESP 18
[2024-11-14 00:01] VITALS: PULSE 68; RESP 18
[2024-11-14 00:05] VITALS: PULSE 67
== END 2024-11-14 00:16 | disposition short-term general hospital (02) ==
PROVIDERS: Family Medicine; Emergency Provider Preventive Medicine Aerospace Medicine
DX: I16.0 Hypertensive urgency (principal); R79.89 Other specified abnormal findings of blood chemistry; R07.9 Chest pain, unspecified; I10 Essential (primary) hypertension; E78.5 Hyperlipidemia, unspecified; I48.0 Paroxysmal atrial fibrillation; E78.2 Mixed hyperlipidemia; Z87.891 Personal history of nicotine dependence; Z79.899 Other long term (current) drug therapy
CPT/HCPCS: 36415; 71045; 80053; 80307; 83690; 83880; 84484; 85025; 85610; 93005; 99285; A9270

== ENCOUNTER 2025-05-18 11:29 | Emergency (ER) | payer OTHER, SELFPAY ==
[2025-05-18 11:36] VITALS: BP 177/99; PULSE 86; RESP 18; TEMP 36.7; O2SAT 98
--- OUTSIDE RECORDS SUMMARY | 2025-05-18 11:54 | XMS_ITS | Encounter Summary ---
Author Organization [facility] Address [address] [place] [address] Care Team Providers Care City Secretary Name Role Phone Unavailable Primary Care Provider Unavailabl e Encounter Details Date Type Department Care Team (Late st Contact Info) Description 05/16/2025 External Device Data [facility] ABSTRACTION Provider, Abstract NO ADDRESS ON FILE Social History Tobacco Use Types Packs/Day Years Used Date Smoking Tobacco: Former Cigarettes Alcohol Use Standard Drinks/Week Comments Yes 0 (1 standard drink = 0.6 oz pur e alcohol) Feeling Safe Answer Date Recorded Are you in a relationship wi th someone who hurts you emotionally and/or physically? No 11/15/2024 Food Insecurity Answer Date Recorded Patient needs follow up regardin 12/22/2024 Transportation Needs Answer Date Record ed Patient needs follow up regardin 12/22/2024 Housing Stability Answer Date Recorded Social/Environmental Concerns No concerns Utility Needs Answer Date Recorded Patient needs follow up regardin 12/22/2024 Sex and Gender Information Value Date Recorded Sex Assigned at Not on file Legal Sex Male 10:26 PM CDT Gender Identity Not on file Sexual Orientation Not on file documented as of this encounter Plan of Treatment Not on file documented as of this encounter Visit Diagnoses Not on filedocumented in this encounter
--- OUTSIDE RECORDS SUMMARY | 2025-05-18 11:55 | XMS_ITS | Clinical Summary ---
Author Organization [facility] Address [address] [place] [address] Care Team Providers Care Dog Pound Attendant Name Role Phone [facility], Dank Melo Primary Care Pro vider Allergies Active Allergy Reactions Criticality Noted Date Comments Iodinated Contrast Media Swelling Medium 10/12/2018 Medications losartan (COZAAR) 25 mg tablet Take 25 mg by mouth early childhood assistant before breakfast Active busPIRone (BUSPAR) 15 mg tabletIndicatio ns:Generalized Anxiety Disorder Take 15 mg by mouth early childhood assistant before breakfast Active clomiPHENE (CLOMID) 50 mg tablet Take 25 mg by mouth early childhood assistant before breakfast Active multivitamin tablet,chewable Take 1 [...] (10/19/2018): Added automatically from request for surgery [id number] 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 [...] 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 Not on file Not [...] 2:29 PM CDT Height 180 cm (5' 10.87) 11/26/2018 4:08 PM CDT Body Mass Index 31.92 11/26/2018 4:08 PM CDT Plan of Treatment Health Maintenance Due Date Last Done Comments Colon Cancer Screening-Colonoscopy 1970 Hepatitis C Screening 1970 Prostate Cancer Screening-PSA 1970 DTaP/Tdap/Td Vaccine (1 - Tdap) 01/04/1979 Hepatitis B Screening 01/04/1986 Regular Well Visit/Exam 18-64 01/04/1986 Zoster Vaccine (1 of 2) 01/04/2018 Depression Screening 10/12/2019 10/12/2018, 10/12/2018 Influenza Vaccine (#1) 2025 Pneumococcal vaccine <65 Aged Out No longer eligible based on patient's age to complete this topic Medical Devices Implanted Type Area Vamp Maker Device Identifier Shelf Expiration Date Model / Serial / Lot Core Link Anodyne 12mm Level 1 Spine Cervical Anterior Plate Bone - [id number] Implanted:Qty: 1 on 11/26/2018 by Corona Case MD at [facility] Plate N/A: Spine Cervical Core Link / / Core Link [id number] Anodyne 4mm 14mm Variable Angle Self Tap Spine Cervical Screw - [id number] Implanted:Qty: 4 on 11/26/2018 by Corona Case MD at [facility] Screw N/A: Spine Cervical Core Link / / [employer] 700-025 I Factor Allograft Putty Syringe Graft 2.5cc Bone - [id number] Implanted:Qty: 1 on 11/26/2018 by Corona Case MD at [facility] N/A: Cervical-Tho racic Spine [employer] 08/30/2021 700-025 / / [id number] [employer] 3d Cervical 16.1t21h4qu 7 Deg - [id number] Implanted:Qty: 1 on 11/26/2018 by Corona Case MD at [facility] N/A: Cervical-Tho racic Spine Core Link [id number] 04/15/2023 [id number] / / [id number] Insurance [employer] [place] Advance Directives For more information, please contact: [phone] * Full Code (Latest Code Status on File) Date Activated Date Inactivated Comments 11/26/2018 4:08 PM 11/26/2018 10:37 PM Care Teams Dog Pound Attendant Relationship Specialty Start Date End Date [facility], Dank Melo [address] [place] [id number] PCP - General Genetics 12/21/23
--- OUTSIDE RECORDS SUMMARY | 2025-05-18 11:55 | XMS_ITS | Clinical Summary ---
Author Organization [facility] Address [address] [place] [address] Phone Care Team Providers Care Disbursing Officer Name Role Phone Unavailable Primary Care Provider Unavailabl e Allergies Active Allergy Reactions Criticality Noted Date Comments Iodinated Contrast Media Shortness of Breath/Wheezing,Swell ing High 10/12/2018 Pt stated he had reaction 30 years ago; Medications escitalopram oxalate (LEXAPRO) 20 mg tablet Take 30 mg by mouth daily. Active Irbesartan (AVAPRO) 300 mg tablet Take 300 mg by mouth daily. Active hydrOXYzine HCL (ATARAX) 25 mg tablet Take 10 mg by mouth 3 times daily as needed for Itching. Active aspirin (ECOTRIN EC) 81 mg Tablet, Delayed Release (E.C.) Take 1 Tablet (81 mg) by mouth daily. 90 Tablet 11/18/2024 Active atorvastatin (LIPITOR) 40 mg tablet Take 1 Tablet (40 mg) by mouth daily at bedtime. 90 Tablet 11/17/2024 Active carvediloL (COREG) 12.5 mg tablet Take 1 Tablet (12.5 mg) by mouth every 12 hours. 180 Tablet 11/17/2024 Active ticagrelor (BRILINTA) 90 mg Tablet Take 1 Tablet (90 mg) by mouth 2 times daily. 180 Tablet 11/17/2024 Active pantoprazole (PROTONIX) 40 mg Tablet, Delayed Release (E.C.) Take 1 Tablet (40 mg) by mouth daily before breakfast. 90 Tablet 11/18/2024 Active Active Problems Problem Noted Date Diagnosed Date Pure hypercholesterolemia 11/16/2024 Chest pain 11/14/2024 Benign hypertension 11/14/2024 Rectal bleeding 11/14/2024 Adjustment disorder with mixed anxiety and depre ssed mood 11/14/2024 Major depressive disorder, recurrent, mild 11/14 Leukocytosis (leucocytosis) 11/14/2024 Coronary artery calcification seen on CAT scan 0 11/14/2024 Hematochezia 11/14/2024 Encounters Date Type Department Care Team Description 05/17/2025 External Device Data STL ABSTRACTION Provider, Abstract 05/16/2025 External Device Data STL ABSTRACTION Provider, Abstract 05/09/2025 External Device Data STL ABSTRACTION Provider, Abstract 05/02/2025 External Device Data STL ABSTRACTION Provider, Abstract 04/19/2025 External Device Data STL ABSTRACTION Provider, Abstract 02/28/2025 External Device Data STL ABSTRACTION Provider, Abstract 02/16/[address] [facility] [address] [place] [address] Maged Nayak MD 02/16/[address] [facility] [address] [place] [address] Maged Nayak MD Preop Exam 02/15/2025 External Device Data STL ABSTRACTION Provider, Abstract from Last 3 Months Family History Medical History Relation Name Comments Colon Cancer Neg Hx Social History Tobacco Use Types Packs/Day Years Used Date Smoking Tobacco: Former Cigarettes Tobacco Cessation:Counseling Given: Not Answered Alcohol Use Standard Drinks/Week Comments Yes 0 [...] Sign Reading Time Taken Comments Blood Pressure 116/70 11/24/2024 10:08 AM CDT Pulse 59 11/24/2024 10:08 AM CDT Temperature 36.9 C (98.5 F) 11/17/2024 7:12 AM CDT Respiratory Rate 8 11/17/2024 7:12 AM CDT Oxygen Saturation 96% 11/24/2024 10:08 AM CDT Inhaled Oxygen Concentration - - Weight 88.5 kg (195 lb) 11/24/2024 10:08 AM CDT Height 182.9 cm (6') 11/24/2024 10:08 AM CDT Body Mass Index 26.45 11/24/2024 10:08 AM CDT Plan of Treatment Health Maintenance Due Date Last Done Comments DTAP/TDAP/TD VACCINES (1 - Tdap) 01/04/1987 HEPATITIS B VACCINES (1 of 3 - 19+ 3-dose series) 01/04/1987 FIT-DNA Q 3 years 01/04/2013 FIT/FOBT Q 1 year 01/04/2013 Flex Sig/CT Colonography Q 5 years 01/04/2013 ZOSTER VACCINE (1 of 2) 01/04/2018 INFLUENZA VACCINE (#1) 2025 Pre-Diabetes and Diabetes Screening 11/16/202711/15 COLORECTAL SCREENING 11/16/2031 11/15/2024, 11/16/19 25 Colorectal Cancer Screening 11/16/2031 Medical Devices Implanted Type Area Wagon Washer Device Identifier Shelf Expiration Date Model / Serial / Lot Clip Endo Resolution 360 235cm [id number] - [id number] Implanted:Qty: 1 on 11/15/2024 by Lopez Hutton MD at [facility] Clip N/A: Sigmoid Colon [employer] [id number] 06/23/2027 [id number] / / [id number] Clip Endo Resolution 360 235cm [id number] - [id number] Implanted:Qty: 1 on 11/15/2024 by Lopez Hutton MD at [facility] Clip N/A: Sigmoid Colon [employer] [id number] 06/23/2027 [id number] / / [id number] Stent Synergy Xd 3.5x12mm Evrlms Elut [id number] - [id number] Implanted:Qty: 1 on 11/16/2024 by Maged Nayak MD at [facility] Stent Left: Coronary [employer] D[employer]IA [id number] 05/31/2026 [id number] / / [id number] Stent Synergy Xd 3.0x12mm Evrlms Elut [id number] - [id number] Implanted:Qty: 1 on 11/16/2024 by Maged Nayak MD at [facility] Stent Left: Coronary [employer] [id number] 07/20/2026 [id number] / / [id number] Procedures Procedure Name Priority Date/Time Associated Diagnosis Comments COLONOSCOPY REPORT 11/15/2024 9: 08 AM CDT HEMOGLOBIN A1C Routine 11/15/2024 2:23 AM CDT from Last 3 Months or Most Recently Relevant to Health Maintenance Results * COLONOSCOPY REPORT (11/15/2024 9:08 AM CDT) Narrative Procedure Note Lopez Hutton MD - 11/15/2024 9:08 AM CDT [facility] Endoscopy Patient Name: Johnathan Garza Procedure Date: 11/15/2024 Date of : 1970 Attending MD: Lopez Hutton MD, Procedure: Colonoscopy Indications: Rectal bleeding Providers: Lopez Hutton MD Referring MD: Medicines: TIVA Complications: No immediate complications. Procedure: Informed consent was obtained for the procedure, including moderate sedation after risks were discussed. Based on the pre-procedure assessment, including review of the patient's medical history, medications, allergies, and review of systems, the patient was deemed to be an appropriate candidate for sedation. A timeout was performed. Continuous ECG monitoring, pulse oximetry, blood pressure monitoring, and direct observation were performed. The Colonoscope was introduced through the anus and advanced to the terminal ileum. The colonoscopy was performed without difficulty. The patient tolerated the procedure well. The quality of the bowel preparation was good. Estimated Blood Loss: Estimated blood loss was minimal. Findings: A 4 mm polyp was found in the sigmoid colon. The polyp was sessile. The polyp was removed with a cold snare. Resection and retrieval were complete. To prevent bleeding after the polypectomy, two hemostatic clips were successfully placed (MR conditional). There was no bleeding at the end of the procedure. A few diverticula were found in the sigmoid colon. Non-bleeding internal hemorrhoids were found during retroflexion. The hemorrhoids were medium-sized. The exam was otherwise without abnormality. Impression: - One 4 mm polyp in the sigmoid colon, removed with a cold snare. Resected and retrieved. Clips (MR conditional) were placed. - Diverticulosis in the sigmoid colon. - Non-bleeding internal hemorrhoids. - The examination was otherwise normal. Recommendation: - Await pathology results. - Repeat screening colonoscopy in 5 years if serrated polyp, 7 years if adenomatous polyp, 10 years if more benign. Lopez Hutton MD 11/15/2024 9:08:39 AM This report has been signed electronically. Number of Addenda: [address]; [place] [address] Lopez Hutton MD GI PROCEDURE ORDERABLES Paige zhang Result * (ABNORMAL) HEMOGLOBIN A1C (11/15/2024 2:23 AM CDT) HEMOGLOBIN A1C 5.8(H) <5.7 % 11/15/2024 3:16 AM CDT [facility] EST. AVG GLUCOSE, A1C 120 mg/dL 11/15/2024 3:16 AM CDT [facility] S4 [employer] [facility] Blood Venipuncture / Unknown 11/15/2024 2:23 AM CDT 11/15/2024 2:30 AM CDT [facility] - 11/15/2024 3:16 AM CDT HGB A1C INTERPRETATION NORMAL: <5.7% PRE-DIABETES: 5.7 - 6.4% DIABETES: 6.5% OR GREATER Allyssa Velazquez CASH MANAGEMENT SPECIALIST CHEMISTRY ORDERABLES Final Resu lt [facility] GISELA# [id number] [address] [place] [id number] from Last 3 Months or Most Recently Relevant to Health Maintenance Insurance [facility] [employer] * Guarantor: Johnathan Garza Account Type Relation to Patient Date of Phone Billing Address Personal/Family Self 1970 [address] (Home) [address] [place] [address] Advance Directives For more information, please contact: [phone] * Full Code (Latest Code Status on File) Date Activated Date Inactivated Comments 11/14/2024 2:51 AM 11/17/2024 12:45 PM
--- OUTSIDE RECORDS SUMMARY | 2025-05-18 11:55 | XMS_ITS | Encounter Summary ---
Author Organization [facility] Address [address] [place] [address] Care Team Providers Care Trucking Manager Name Role Phone Unavailable Primary Care Provider Unavailabl e Encounter Details Date Type Department Care Team (Late st Contact Info) Description 05/17/2025 External Device Data STL ABSTRACTION [...]
--- OUTSIDE RECORDS SUMMARY | 2025-05-18 11:55 | XMS_ITS | Clinical Summary ---
Author Organization [facility] Address [address] [place] [address] Care Team Providers Care Art Appraiser Name Role Phone Car Tiwari MD Primary Care Provider [phone] [facility],non-owned Affiliates and Associated Physician Practices is amultiple site organization consisting of ambulatory clinics and hospital sitesin [place], [place], [place] and [place]. This disclosure is being madepursuant to the Care Everywhere program and may not contain all information available regarding this patient. Last updated 18.[facility] Allergies No known active allergies Medications * Be aware that medications may not be up to date on this document. Alwaysverify current medications with the patient. naproxen (NAPROSYN) 500 MG tablet Take 1 Tab by mouth 2 times daily as needed for Pain 20 Tab 0 03/17/20 16 Active cyclobenzapri ne (FLEXERIL) 5 MG tablet Take 1 Tab by mouth every 8 hours as needed (Spasms) 15 Tab 0 03/17/20 16 Active aspirin EC (Ecotrin) 81 MG tablet Take 1 (one) tablet by mouth once daily 11/19/19 25 Active atorvastatin (Lipitor) 40 MG tablet Take 1 (one) tablet by mouth at bedtime 11/18/19 25 Active carvedilol (Coreg) 12.5 MG tablet Take 1 (one) tablet by mouth 2 times daily 11/18/19 25 Active escitalopram (Lexapro) 20 MG tablet Take 1.5 (one and one-half) tablets by mouth once daily 01/25/20 25 Active hydrOXYzine HCl (Atarax) 10 MG tablet Take 1 (one) tablet by mouth 3 times daily as needed (anxiety) 01/25/20 25 Active pantoprazole EC (Protonix) 40 MG tablet Take 1 (one) tablet by mouth once daily 11/19/19 25 Active ticagrelor (Brilinta) 90 MG tablet Take 1 (one) tablet by mouth 2 times daily 11/18/19 25 Active oxyCODONE, immediate release, (Roxicodone) 5 MG tabletIndicat ions:Hematoma of arm, left, initial encounter Take 1 (one) tablet by mouth every 4 hours as needed 12 tablet 05/09/20 25 Active acetaminophen (Tylenol) 325 MG tablet Take 2 (two) tablets by mouth every 6 hours for 30 days Maximum allowable Acetaminophen amount = 4 Grams (4000 mg) / 24 hours. 240 tablet 05/09/20 25 2024 Active pregabalin (Lyrica) 50 MG capsule Take 1 (one) capsule by mouth every 12 hours for 30 days 60 capsule 05/09/20 25 2024 Active HYDROcodone-a cetaminophen (NORCO) 5-325 MG tablet Take 1 Tab by mouth every 4 hours as needed for Pain 20 Tab 0 03/17/20 16 2024 Discontinued(L ist Clean-Up) irbesartan (Avapro) 300 MG tablet Take 1 (one) tablet by mouth once daily 2024 Discontinued(L ist Clean-Up) oxyCODONE, immediate release, (Roxicodone) 5 MG tabletIndicat ions:Hematoma of arm, left, initial encounter Take 1 (one) tablet by mouth every 4 hours as needed 12 tablet 05/09/20 25 2024 Discontinued acetaminophen (Tylenol) 325 MG tablet Take 2 (two) tablets by mouth every 6 hours Maximum allowable Acetaminophen amount = 4 Grams (4000 mg) / 24 hours. 05/09/20 25 2024 Discontinued pregabalin (Lyrica) 50 MG capsule Take 1 (one) capsule by mouth every 12 hours for 30 days 60 capsule 05/09/20 25 2024 Discontinued Active Problems Problem Noted Date Diagnosed Date Trauma 05/08/2025 Fall, initial encounter 05/08/2025 Left arm pain 05/08/2025 Hematoma of arm, left, initial encounter 025 Traumatic hematoma of left forearm 05/07/2025 Simple laceration of forehead 05/07/2025 Left thyroid nodule 05/07/2025 Encounters Date Type Department Care Team Description 05/07/2025 4:35 PM CDT - 05/09/2025 5:28 PM CDT Hospital Encounter [facility] Early Admission Unit [address] [place] [address] Sav Groves MD Garcia, Andrew M, MD Behr, Matt Godfrey MD Trauma Discharge Disposition: Home or Self Care 05/07/2025 Travel from Last 3 Months Immunizations Immunization Administration Dates Next Due TDAP (7yrs+) 05/07/2025 Social History Tobacco Use Types Packs/Day Years Used Date Smoking Tobacco: Never Alcohol Use Standard Drinks/Week Comments Yes 0 (1 standard drink = 0.6 oz pur e alcohol) AUDIT-C Answer Date Recorded Q1: How often do you have a drink containing alc ohol? 2-4 times a month 05/08/2025 Q2: How many drinks containi ng alcohol do you have on a typical day when you are drinking? 1 or 2 05/08/2025 Q3: How often do you have si x or more drinks on one occasion? Less than monthly 05/08/2025 Overall Financial Resource Strain (CARDIA) Answe r Date Recorded How hard is it for you to pa y for the very basics like food, housing, medical care, and heating? Not hard at all 05/08/2025 [facility] - Occupational Stress Questionnaire Answer Date Recorded Do you feel stress - tense, restless, nervous, or anxious, or unable to sleep at night because your mind is troubled all the time - these days? Not at all 05/08/2025 Hunger Vital Sign Answer Date Recorded Within the past 12 months, y ou worried that your food would run out before you got the money to buy more. Patient declined Within the past 12 months, t he food you bought just didn't last and you didn't have money to get more. Patient declined 03/2025 PRAPARE - Transportation Answer Date Re corded In the past 12 months, has l ack of transportation kept you from medical appointments or from getting medications? No 03/2025 In the past 12 months, has l ack of transportation kept you from meetings, work, or from getting things needed for daily living? No 05/08/2025 Housing Stability Vital Sign Answer Nathan e Recorded In the last 12 months, was t here a time when you were not able to pay the mortgage or rent on time? No 05/08/2025 Number of Times Moved in the Last Year Not on fi le 05/08/2025 At any time in the past 12 m [facility], were you homeless or living in a correction (including now)? No 05/08/2025 Sex and Gender Information Value Date Recorded Sex Assigned at Not on file Legal Sex Male 5:57 AM [employer] Gender Identity Not on file Sexual Orientation Not on file Last Filed Vital Signs Vital Sign Reading Time Taken Comments Blood Pressure 158/84 05/09/2025 3:50 PM CDT Pulse 57 05/09/2025 3:50 PM CDT Temperature 36.8 C (98.3 F) 05/09/2025 3:50 PM CDT Respiratory Rate 18 05/09/2025 3:50 PM CDT Oxygen Saturation 98% 05/09/2025 3:50 PM CDT Inhaled Oxygen Concentration - - Weight 89.3 kg (196 lb 12.8 oz) 05/08/2025 4:14 AM CDT Height 182.9 cm (6') 05/08/2025 4:14 AM CDT Body Mass Index 26.69 05/08/2025 4:14 AM CDT Plan of Treatment Health Maintenance Due Date Last Done Comments COLOGUARD (AGES 45-75) - COL ON CA SCREENING 1968 COLON MONITORING 1968 COLONOSCOPY - COLON CA SCREENING 1968 CT COLONOGRAPHY - COLON CA SCREENING 1968 Colorectal Cancer Screening 1968 FIT - COLON CA SCREENING 1968 FLEX SIG - COLON CA SCREENING 1968 HIV SCREENING 01/04/1983 HEPATITIS C SCREENING 12/31/1985 HEPATITIS B VACCINE (1 of 3 - 19+ 3-dose series) 01/04/1987 PNEUMOCOCCAL VACCINE 50+ (1 of 1 - PCV) 01/04/2018 ZOSTER VACCINE (1 of 2) 01/04/2018 DEPRESSION SCREENING 08/31/2024 COVID-19 VACCINE ( - 2023-2 5 season) 2025 INFLUENZA VACCINE (#1) 2025 DTAP/TDAP/TD VACCINES (2 - T d or Tdap) 05/07/2035 05/07/2025 HIB VACCINE Aged Out No longer eligi [...] this topic Medical Devices Implanted Type Area Spiral Weaver Device Identifier Shelf Expiration Date Model / Serial / Lot Stent-10/30/2024 Implanted:2024 (Quantity not on file) Stent Heart Procedures Procedure Name Priority Date/Time Associated Diagnosis Comments PHOSPHORUS BLOOD Routine 05/09/2025 4:00 AM CDT MAGNESIUM BLOOD Routine 05/09/2025 4:00 AM CDT BASIC METABOLIC PANEL (CALCIUM TOTAL) Routine 05/09/2025 4:00 AM CDT CBC W/O DIFFERENTIAL Routine 05/09/2025 4:00 AM CDT PHOSPHORUS BLOOD STAT 05/08/2025 4:28 AM CDT MAGNESIUM BLOOD STAT 05/08/2025 4:28 AM CDT BASIC METABOLIC PANEL (CALCIUM TOTAL) STAT 05/08/2025 4:28 AM CDT CBC W/O DIFFERENTIAL STAT 05/08/2025 4:28 AM CDT URINALYSIS W/MICROSCOPIC NO CULTURE STAT 05/08/2025 2:34 AM CDT URINE DRUG SCREEN IMMUNOASSAY STAT 05/08/2025 2:34 AM CDT BLOOD TYPE VERIFICATION STAT 05/07/2025 7:[address] ANGIO UPPER EXTREMITY LEFT STAT 05/07/2025 5:[address] ANGIO NECK STAT 05/07/2025 5:[address] LUMBAR SPINE WO CONTRAST STAT 05/07/2025 5:[address] THORACIC SPINE WO CONTRAST STAT 05/07/2025 5:[address] CHEST ABDOMEN PELVIS W CONT STAT 05/07/2025 5:[address] CERVICAL SPINE WO CONTRAST STAT 05/07/2025 5:[address] FACIAL BONES WO CONTRAST STAT 05/07/2025 5:[address] HEAD WO CONTRAST STAT 05/07/2025 5 :20 PM CDT Trauma XR PELVIS 1 OR 2VW Routine 05/07/2025 4: 52 PM CDT Trauma XR FOREARM LEFT 2VW OR MORE STAT 05/07/2025 4:52 PM CDT Trauma XR CHEST 1VW PORTABLE STAT 05/07/2025 4:52 PM CDT Trauma TYPE + SCREEN PANEL STAT 05/07/2025 4 :46 PM CDT COMPREHENSIVE METABOLIC PANEL STAT 05/07/2025 4:46 PM CDT PTT STAT 05/07/2025 4:46 PM CDT PT-INR STAT 05/07/2025 4:46 PM CDT CBC W AUTO DIFFERENTIAL STAT 05/07/2025 4:46 PM CDT ALCOHOL ETHYL BLOOD STAT 05/07/2025 4 :46 PM CDT from Last 3 Months Results * (ABNORMAL) CBC W/O DIFFERENTIAL (05/09/2025 4:00 AM CDT) Only the most recent of2 resultswithin the time period is included. WBC 9.6 4.0 - 10.7 x10E9/L 05/09/2025 4:[address] [facility] RBC Count 4.09(L) 4.30 - 5.80 x10E12/L 05/09/2025 4:[address] [facility] Hemoglobin 12.8(L) 13.3 - 17.5 g/dL 05/09/2025 4:[address] [facility] Hematocrit 37.0(L) 38.7 - 51.1 % 05/09/2025 4:[address] [facility] MCV 90.5 80.0 - 98.0 fL 05/09/2025 4:[address] [facility] MCH 31.3 26.7 - 33.6 pg 05/09/2025 4:[address] [facility] MCHC 34.6 31.7 - 36.3 g/dL 05/09/2025 4:[address] [facility] RDW-CV 13.1 11.3 - 14.8 % 05/09/2025 4:[address] [facility] Platelet Count 236 150 - 420 x10E9/L 05/09/2025 4:[address] [facility] MPV 10.6 7.8 - 11.4 fL 05/09/2025 4:[address] [facility] Blood BLOOD SPECIMEN / Unknown Lab Venipuncture / Unknown 05/09/2025 4:00 AM CDT 05/09/2025 4:28 AM CDT us Davide Rodriguez MD LAB - HEMATOLOGY ORDERABLES F inal Result [facility] [address] [place] [id number], [facility] [phone] * (ABNORMAL) BASIC METABOLIC PANEL (CALCIUM TOTAL) (05/09/2025 4:[address] [facility]) Only the most recent of2 resultswithin the time period is included. BUN 8 7 - 26 mg/dL 05/09/2025 5:[address] [facility] Creatinine 0.73 0.71 - 1.16 mg/dL 05/09/2025 5:[address] [facility] Sodium 139 136 - 145 mmol/L 05/09/2025 5:[address] [facility] Potassium 3.7 3.5 - 4.5 mmol/L 05/09/2025 5:[address] [facility] Chloride 111(H) 98 - 107 mmol/L 05/09/2025 5:[address] [facility] CO2 26 22 - 29 mmol/L 05/09/2025 5:[address] [facility] Glucose 105(H) 70 - 99 mg/dL 05/09/2025 5:[address] [facility] Calcium 8.8 8.4 - 10.2 mg/dL 05/09/2025 5:[address] [facility] Anion Gap 2(L) 6 - 16 05/09/2025 5:[address] [facility] BUN/Creatinine Ratio 11 7 - 23 05/09/2025 5:[address] [facility] Osmolality Calculated 287 275 - 295 mOsm/kg 05/09/2025 5:[address] [facility] eGFR by CKD-EPI >90 >=90 mL/min/1.7 3 m2 05/09/2025 5:[address] [facility] Comment:Estimated Glomerular Filtration Rate (eGFR) calculated using the CKD-EPI Creatinine Equation (2020), per the National Kidney Foundation and [place] [employer] Neph[employer] recommendations. Blood BLOOD SPECIMEN / Unknown Lab Venipuncture / Unknown 05/09/2025 4:00 AM CDT 05/09/2025 4:[address] [facility] us Davide Rodriguez MD LAB - CHEMISTRY ORDERABLES Fi nal Result [address] [address], [facility] [phone] * PHOSPHORUS BLOOD (05/09/2025 4:00 AM CDT) Only the most recent of2 resultswithin the time period is included. Phosphorus 3.8 2.8 - 5.1 mg/dL 05/09/2025 5:01 AM CDT [facility] Blood BLOOD SPECIMEN / Unknown Lab Venipuncture / Unknown 05/09/2025 4:00 AM CDT 05/09/2025 4:28 AM CDT Davide Rodriguez MD LAB - CHEMISTRY ORDERABLES Fi nal Result [address] [address], [facility] [phone] * MAGNESIUM BLOOD (05/09/2025 4:00 AM CDT) Only the most recent of2 resultswithin the time period is included. Magnesium 2.1 1.6 - 2.6 mg/dL 05/09/2025 5:01 AM CDT [facility] Blood BLOOD SPECIMEN / Unknown Lab Venipuncture / Unknown 05/09/2025 4:00 AM CDT 05/09/2025 4:28 AM CDT Davide Rodriguez MD LAB - CHEMISTRY ORDERABLES Fi nal Result [address] [address], [facility] [phone] * (ABNORMAL) URINALYSIS W/MICROSCOPIC NO CULTURE (05/08/2025 2:34 AM CDT) Color UA Colorless(A ) Yellow, Straw 05/08/2025 2:51 AM CDT [facility] Clarity UA Clear Clear 05/08/2025 2:51 AM CDT [facility] Glucose UA Normal Normal 05/08/2025 2:51 AM CDT [facility] Bilirubin UA Negative Negative 05/08/2025 2:[address] [facility] Ketone UA Trace(A) Negative 05/08/2025 2:[address] [facility] Specific [place] UA 1.019 1.005 - 1.030 05/08/2025 2:[address] [facility] Blood UA Trace(A) Negative 05/08/2025 2:[address] [facility] pH UA 5.5 5.0 - 8.0 05/08/2025 2:[address] [facility] Protein UA Negative Negative 05/08/2025 2:[address] [facility] Urobilinogen UA Normal Normal mg/dL 05/08/2025 2:[address] [facility] Nitrite UA Negative Negative 05/08/2025 2:[address] [facility] Leukocyte Esterase UA Negative Negative 05/08/2025 2:[address] [facility] RBC UA 3-5 0 - 5 # /hpf 05/08/2025 2:[address] [facility] WBC UA 0-5 0 - 5 # /hpf 05/08/2025 2:[address] [facility] Bacteria UA None Seen None Seen 05/08/2025 2:[address] [facility] Squamous Epithelial Cells None Seen 0 - 5 /hpf 05/08/2025 2:[address] [facility] Urine URINE SPECIMEN OBTAINED BY CLEAN CATCH PROCEDURE / Unknown Collection / Unknown 05/08/2025 2:34 AM CDT 05/08/2025 2:42 AM CDT us Matt Man MD LAB - URINALYSIS ORDERABLE S Final Result [facility] [address] [place] [address], [facility] [phone] * (ABNORMAL) URINE DRUG SCREEN IMMUNOASSAY (05/08/2025 2:34 AM CDT) [facility] Amphetamines Screen Urine Negative Negative : < 1000 ng/mL 05/08/2025 3:[address] [facility] Barbiturates Screen Urine Negative Negative : < 200 ng/mL 05/08/2025 3:[address] [facility] Benzodiazepine Screen Urine Negative Negative : < 200 ng/mL 05/08/2025 3:[address] [facility] Opiates Urine Negative Negative : < 300 ng/mL 05/08/2025 3:[address] [facility] Cocaine Metabolites Urine Negative Negative : < 300 ng/mL 05/08/2025 3:[address] [facility] Phencyclidine Screen Urine Negative Negative : < 25 ng/ml 05/08/2025 3:[address] [facility] Cannabinoids Screen Urine Positive(A) Negative : <50 ng/mL 05/08/2025 3:[address] [facility] Comment:Positive urine canna binoids (THC) screening results should be confirmed by another generally accepted non-immunological method such as gas chromatography or mass spectrometry. Methadone Screen Urine Negative Negative : < 300 ng/mL 05/08/2025 3:[address] [facility] Fentanyl Screen Urine Positive(A) Negative : <1.5 ng/mL 05/08/2025 3:[address] [facility] Comment:Positive urine fenta nyl screening results should be confirmed by another generally accepted non-immunological method such as gas chromatography or mass spectrometry. Urine URINE / Unknown Collection / Unknown 05/08/2025 2:34 AM CDT 05/08/2025 2:42 AM T [facility] - 05/08/2025 3:23 AM T The Urine Toxicology Screening Panel does not screen for Propoxyphene, Meprobamate, Carisoprodol, Trazodone, oyqo-knx-sdrfoym medications and/or volatiles (Acetone, Isopropanol, Methanol or Ethylene Glycol). Ethanol, Salicylate, Acetaminophen, Tricyclic Antidepressants and several therapeutic drugs may be individually assayed in serum or plasma specimen. Toxicology testing by the [facility] is an aid to medical diagnosis and treatment of patients. No documented chain of custody was maintained. Results are intended to be used for clinical purposes only. us Matt Man MD LAB - URINE CHEMISTRY SYDNIE PEÑA Final Result [facility] [address] [id number], [facility] [phone] * BLOOD TYPE VERIFICATION (05/07/2025 7:28 PM CDT) ABO Rh O POS 05/07/2025 8:1 6 PM CDT [facility] BLOOD BANK LAB Blood Bank BLOOD SPECIMEN / Unknown Venipuncture / Unknown 05/07/2025 7:28 PM CDT 05/07/2025 7:32 PM CDT us Matt Man MD LAB - BLOOD BANK ORDERABLE S Final Result [facility] BLOOD BANK LAB [address] [place] [address], [facility] [phone] * CT CHEST ABDOMEN PELVIS W CONT - Abdomen-pelvis trauma, blunt or penetrating (05/07/2025 5:20 PM CDT) Anatomical Region Laterality Modality Chest, Abdomen, Pelvis Computed Tomography 05/07/2025 5:52 PM CDT Impressions 05/07/2025 6:21 PM CDT Impression: 1.No acute visceral, vascular, or osseus injury identified in the chest, abdomen, or pelvis. 2.Hypodense left thyroid nodule measuring up to 2.5 cm. Recommend nonemergent thyroid ultrasound if not already performed. 3.Soft tissue stranding at the lateral aspect of the left arm. Soft tissue stranding with small hematoma versus fluid in the dorsal aspect of the forearm. > Dictated by Li Baugh MD > Dictated by Senior Audit Manager I, Brendan Nathan MD have personally reviewed and interpreted this examination/study. > Interpreting Provider: Brendan Nathan MD on 05/07/2025 6:21 PM Narrative 05/07/2025 6:21 PM CDT PROCEDURE: CT CHEST ABDOMEN PELVIS W CONT, DATE/TIME OF EXAM: 05/07/2025 5:23 PM, LOCATION [facility] INDICATION: T14.90XA: Trauma ADDITIONAL CLINICAL INFORMATION: Ordering Provider Reason For Exam: Technologist Note: Additional: COMPARISON: CT abdomen pelvis from 03/17/2016 TECHNIQUE: CT of the chest, abdomen, and pelvis was performed after the uneventful administration of 100 mL of Isovue 370 intravenous contrast according to standard protocol. Findings: Chest: Lower Neck and Axillae: Hypodense left thyroid nodule measuring up to 2.5 cm. Anterior fusion of C7-T1. Lungs: No pulmonary parenchymal or airway process is present. No suspicious pulmonary nodules are identified. No pleural fluid or pneumothorax is present. Heart and Pericardium: The cardiac chambers are normal in size. No pericardial fluid or thickening is present. The coronary arteries are atherosclerotic. Mediastinum and Gely: No mediastinal hemorrhage is present. No enlarged lymph nodes are present. Residual thymic tissue is present. Thoracic Vasculature: No vascular abnormality is present. Abdomen/pelvis: Liver: Normal. Gallbladder and Bile Ducts: Normal. Spleen: Normal. Pancreas: Normal. Adrenals: Normal. Kidneys: Normal. Gastrointestinal: The stomach and visualized loops of small bowel are unremarkable. Colonic diverticulosis without evidence of diverticulitis is seen. Normal appendix. Mesentery/Peritoneum/Retroperitoneum: No free intraperitoneal air. No free fluid in the abdomen or pelvis. Bladder: Normal. Reproductive Organs: The prostate is normal. Abdominal Vasculature: Atherosclerotic calcification of the aorta and its branch vessels. Bones: Bone windows demonstrate no suspicious lytic or blastic lesions. The visible osseous structures are intact. Degenerative changes are seen in the spine. Soft tissues: Soft tissue stranding at the lateral aspect of the left arm. Soft tissue stranding with small hematoma or fluid at the dorsal aspect of the forearm. Procedure Note Brendan Nathan MD - 05/07/2025 PROCEDURE: CT CHEST ABDOMEN PELVIS W CONT, DATE/TIME OF EXAM: 05/07/2025 5:23 PM, LOCATION [facility] INDICATION: T14.90XA: Trauma ADDITIONAL CLINICAL INFORMATION: Ordering Provider Reason For Exam: Technologist Note: Additional: COMPARISON: CT abdomen pelvis from 03/17/2016 TECHNIQUE: CT of the chest, abdomen, and pelvis was performed after the uneventful administration of 100 mL of Isovue 370 intravenous contrast according to standard protocol. Findings: Chest: Lower Neck and Axillae: Hypodense left thyroid nodule measuring up to 2.5 cm. Anterior fusion of C7-T1. Lungs: No pulmonary parenchymal or airway process is present. No suspicious pulmonary nodules are identified. No pleural fluid or pneumothorax is present. Heart and Pericardium: The cardiac chambers are normal in size. No pericardial fluid orthickening is present. The coronary arteries are atherosclerotic. Mediastinum and Gely: No mediastinal hemorrhage is present. No enlarged lymph nodes arepresent. Residual thymic tissue is present. Thoracic Vasculature: No vascular abnormality is present. Abdomen/pelvis: Liver: Normal. Gallbladder and Bile Ducts: Normal. Spleen: Normal. Pancreas: Normal. Adrenals: Normal. Kidneys: Normal. Gastrointestinal: The stomach and visualized loops of small bowel are unremarkable.Colonic diverticulosis without evidence of diverticulitis is seen. Normalappendix. Mesentery/Peritoneum/Retroperitoneum: No free intraperitoneal air. No free fluid in the abdomen or pelvis. Bladder: Normal. Reproductive Organs: The prostate is normal. Abdominal Vasculature: Atherosclerotic calcification of the aorta and its branch vessels. Bones: Bone windows demonstrate no suspicious lytic or blastic lesions. The visible osseous structures are intact. Degenerative changes are seen inthe spine. Soft tissues: Soft tissue stranding at the lateral aspect of the left arm. Soft tissue stranding with small hematoma or fluid at the dorsal aspect of theforearm. Impression: 1.No acute visceral, vascular, or osseus injury identified in the chest, abdomen, or pelvis. 2.Hypodense left thyroid nodule measuring up to 2.5 cm. Recommend nonemergent thyroid ultrasound if not already performed. 3.Soft tissue stranding at the lateral aspect of the left arm. Softtissue stranding with small hematoma versus fluid in the dorsal aspect of the forearm. > Dictated by Li Baugh MD > Dictated by Senior Audit Manager I, Brendan Nathan MD have personally reviewed and interpreted this examination/study. > Interpreting Provider: Brendan Nathan MD on 05/07/2025 6:21 PM us Matt Man MD CT ORDERABLES Final Resu lt * CT Angio Upper Extremity Left (05/07/2025 5:20 PM CDT) Anatomical Region Laterality Modality Upper Extremity Computed Tomogra phy 05/07/2025 6:08 PM CDT Impressions 05/07/2025 9:55 PM CDT IMPRESSION: 1.Left upper extremity arterial vasculature is patent without evidence of thrombosis or dissection. 2.Soft tissue stranding at the lateral aspect of the arm. 3.Soft tissue stranding and formation of a 1.5 x 3.2 x 6.5 cm hematoma at the dorsal aspect of the forearm. No contrast extravasation to suggest active hemorrhage. 4.Incidental finding of 2.3 x 1.2 cm left thyroid lobe nodule. Thyroid ultrasound can be obtained for further evaluation. > Dictated by Li Baugh MD > Dictated by Senior Audit Manager ICaitlyn MD have personally reviewed and interpreted this examination/study. > Interpreting Provider: Caitlyn Hamlin MD on 05/07/2025 9:55 PM Narrative 05/07/2025 9:55 PM CDT PROCEDURE: CT ANGIO UPPER EXTREMITY LEFT, DATE/TIME OF EXAM: 05/07/2025 5:23 PM, LOCATION [facility] INDICATION: T14.90XA: Trauma ADDITIONAL CLINICAL INFORMATION: Ordering Provider Reason For Exam: forearm hematoma Technologist Note: Additional: COMPARISON: None. TECHNIQUE: CT angiography of the left upper extremity was performed following the uneventful administration of Isovue-370 intravenous contrast according to standard protocol. Three-dimensional postprocessing was performed by the technologist and sent to the workstation for review. FINDINGS: Angiographic findings: Subclavian, axillary, brachial, radial, ulnar, anterior interosseous, and posterior interosseous arteries are patent without evidence of thrombosis or dissection. Bones: The bones are normal. Soft tissues: Soft tissue stranding at the lateral aspect of the arm. Soft tissue stranding and formation of an approximately 1.5 x 3.2 x 6.5 cm ill-defined hematoma at the dorsal aspect of the forearm. There is no active contrast extravasation. An approximately 2.3 x 1.2 cm hypoattenuating nodule is noted in the left thyroid lobe appears colonic diverticulosis is incidentally noted. Procedure Note Cira Hamlin MD - 05/07/2025 PROCEDURE: CT ANGIO UPPER EXTREMITY LEFT, DATE/TIME OF EXAM: 05/07/2025 5:23 PM, LOCATION [facility] INDICATION: T14.90XA: Trauma ADDITIONAL CLINICAL INFORMATION: Ordering Provider Reason For Exam: forearm hematoma Technologist Note: Additional: COMPARISON: None. TECHNIQUE: CT angiography of the left upper extremity was performed following the uneventful administration of Isovue-370 intravenouscontrast according to standard protocol. Three-dimensional postprocessing was performed by the technologist and sent to the workstation for review. FINDINGS: Angiographic findings: Subclavian, axillary, brachial, radial, ulnar, anterior interosseous, and posterior interosseous arteries are patent without evidence of thrombosis or dissection. Bones: The bones are normal. Soft tissues: Soft tissue stranding at the lateral aspect of the arm.Soft tissue stranding and formation of an approximately 1.5 x 3.2 x 6.5 cm ill-defined hematoma at the dorsal aspect of the forearm. There is no active contrast extravasation. An approximately 2.3 x 1.2 cm hypoattenuating nodule is noted in theleft thyroid lobe appears colonic diverticulosis is incidentally noted. IMPRESSION: 1.Left upper extremity arterial vasculature is patent without evidenceof thrombosis or dissection. 2.Soft tissue stranding at the lateral aspect of the arm. 3.Soft tissue stranding and formation of a 1.5 x 3.2 x 6.5 cm hematomaat the dorsal aspect of the forearm. No contrast extravasation to suggest active hemorrhage. 4.Incidental finding of 2.3 x 1.2 cm left thyroid lobe nodule. Thyroid ultrasound can be obtained for further evaluation. > Dictated by Li Baugh MD > Dictated by Senior Audit Manager I, Caitlyn Hamlin MD have personally reviewed and interpreted this examination/study. > Interpreting Provider: Caitlyn Hamlin MD on 05/07/2025 9:55 PM us Sav Groves MD CT ORDERABLES Final Result * CT LUMBAR SPINE WO CONTRAST - T/L-spine trauma, Spine fracture (05/07/2025 5:20 PM CDT) Anatomical Region Laterality Modality Spine Computed Tomogra phy 05/07/2025 5:37 PM CDT Impressions 05/07/2025 9:26 PM CDT IMPRESSION: 1.No acute intracranial hemorrhage, midline shift, or significant mass effect. 2.No acute facial bone fractures identified. 3.No evidence of acute fracture in the cervical, thoracic, or lumbar spine. 4.No evidence of large arterial injury identified in the neck. 5.2.9 cm left thyroid lobe nodule, recommend correlation with dedicated thyroid ultrasound. 6.Please refer to the concurrent, dedicated body report for findings in the chest, abdomen, and pelvis. > Dictated by Mariaa Weems MD, (residential appraiser) 05/07/2025 5:37 PM. > Dictated by Senior Audit Manager I, Jorge Noe MD have personally reviewed and interpreted this examination/study. > Interpreting Provider: Jorge Noe MD on 05/07/2025 9:26 PM Narrative 05/07/2025 9:26 PM CDT PROCEDURE: CT HEAD WO CONTRAST, CT ANGIO NECK, CT LUMBAR SPINE WO CONTRAST, CT THORACIC SPINE WO CONTRAST, CT CERVICAL SPINE WO CONTRAST, CT FACIAL BONES WO CONTRAST, DATE/TIME OF EXAM: 05/07/2025 5:23 PM, LOCATION [facility] INDICATION: T14.90XA: Trauma ADDITIONAL CLINICAL INFORMATION: Ordering Provider Reason For Exam: Trauma. Technologist Note: None. Additional: None. CONTRAST: IOPAMIDOL 76 % IV SOLN:100 mL EXAMINATION: 1.Computed tomography (CT) of the head without contrast 2.CT of the maxillofacial bones, orbits, and paranasal sinuses without contrast 3.CT of the cervical spine without contrast 4.CT of the thoracic spine without contrast 5.CT of the lumbar spine without contrast 6.CT angiography of the neck with contrast TECHNIQUE: CT of the head, cervical spine, and maxillofacial bones, orbits, and paranasal sinuses was performed without contrast according to standard protocol. Reformatted axial, sagittal, and coronal images of the thoracic and lumbar spine were obtained by the technologist from a concurrently performed body CT and sent to the workstation for review. CT dose reduction technique was used, including Automated Exposure Control. CT angiography of the neck was obtained after the uneventful administration of 100 mL Isovue 370 intravenous contrast. Three dimensional postprocessing was performed by the technologist and sent to the workstation for review. Stenosis measurements are based on NASCET criteria. CT dose reduction technique was used, including Automated Exposure Control. COMPARISON: No prior study is available for comparison at the time of this dictation. FINDINGS: Head: No acute intra- or extra-axial fluid collections are identified. The ventricles are of normal size, shape, and morphology. The basilar cisterns are patent. No mass effect or midline shift is seen. The camara-white matter differentiation is normal. Effacement of the sulci is likely a normal variant. The visualized portions of the orbits, paranasal sinuses, and mastoids appear normal. No acute fracture is identified. Left frontal scalp soft tissue swelling and overlaying lacerations with the skin defect and the soft tissue gas. No underlying fracture. Facial bones: The orbits including the globes, optic nerves, retrobulbar fat and extraocular muscles appear normal. There is mild paranasal sinus disease.. Periodontal disease is present. Artifacts from the dental amalgam is limiting evaluation of the oral cavity. The hard palate, mandible, and temporomandibular joints appear otherwise grossly unremarkable. Chronic deviation of the nasal bones to the left. No acute facial bone fractures are identified. The mastoid air cells are clear. Rightward deviation of the nasal septum. No soft tissue abnormality is identified. Cervical spine: Postsurgical changes of anterior cervical discectomy and fusion at C7-T1 with intact appearing hardware. Mild levocurvature of the cervical spine. The alignment is otherwise grossly unremarkable. Vertebral bodies are normal in height without evidence of acute fracture. Other than middle atlantoaxial joint osteoarthritis, the craniocervical junction appears normal. There is advanced degenerative disc disease. No central canal stenosis is seen. There are varying degrees of advanced facet osteoarthritis. There are varying degrees of advanced uncovertebral joint osteoarthritis with the same degree of neural foraminal stenosis at these levels. No soft tissue abnormality is identified. Angiographic findings: The visible aortic arch appears normal. The configuration of the brachiocephalic vessels is typical. The innominate artery and both subclavian arteries appear normal. The right common and internal carotid arteries as well as the right carotid bifurcation appear normal. The left common and internal carotid arteries as well as the left carotid bifurcation appear normal. The cervical vertebral arteries appear normal. No evidence of large arterial injury is identified. There is a 2.9 x 1.3 cm hypodense nodule in the left thyroid lobe. Thoracic spine: Mild dextro curvature of the thoracic spine. The alignment is normal. Vertebral bodies are normal in height without evidence of acute fracture. There is mild degenerative disc disease. No central canal stenosis is seen. There is mild facet osteoarthritis at multiple levels. No neural foraminal stenosis is seen. There are atherosclerotic calcifications of the coronary arteries. There is subsegmental atelectasis in the dependent portions of the lung bases. Lumbar spine: Straightening of the normal lumbar lordosis. Shallow S-shaped curvature of the thoracolumbar spine. The alignment is otherwise maintained. Vertebral bodies are normal in height without evidence of acute fracture. There is advanced degenerative disc disease. Mild multilevel central canal stenosis is seen. There is advanced facet osteoarthritis at multiple levels, worst at L4-L5 and L5-S1, with decreased disc space height, vacuum disc phenomenon, and endplate sclerosis. There are varying degrees of neural foraminal stenosis at multiple levels. There is atherosclerotic calcification of the abdominal aorta and its branch vessels. Brain injury guidelines: Skull fracture: No Subdural hematoma: No subdural hematoma. Epidural hematoma: No epidural hematoma. Intraparenchymal hemorrhage: No intraparenchymal hemorrhage. Subarachnoid hemorrhage: No subarachnoid hemorrhage. Intraventricular hemorrhage: No. Midline shift: No. Procedure Note Jorge Noe MD - 05/07/2025 PROCEDURE: CT HEAD WO CONTRAST, CT ANGIO NECK, CT LUMBAR SPINE WO CONTRAST, CT THORACIC SPINE WO CONTRAST, CT CERVICAL SPINE WO CONTRAST,CT FACIAL BONES WO CONTRAST, DATE/TIME OF EXAM: 05/07/2025 5:23 PM, LOCATION [facility] INDICATION: T14.90XA: Trauma ADDITIONAL CLINICAL INFORMATION: Ordering Provider Reason For Exam: Trauma. Technologist Note: None. Additional: None. CONTRAST: IOPAMIDOL 76 % IV SOLN:100 mL EXAMINATION: 1.Computed tomography (CT) of the head without contrast 2.CT of the maxillofacial bones, orbits, and paranasal sinuses without contrast 3.CT of the cervical spine without contrast 4.CT of the thoracic spine without contrast 5.CT of the lumbar spine without contrast 6.CT angiography of the neck with contrast TECHNIQUE: CT of the head, cervical spine, and maxillofacial bones,orbits, and paranasal sinuses was performed without contrast according tostandard protocol. Reformatted axial, sagittal, and coronal images of thethoracic and lumbar spine were obtained by the technologist from a concurrently performed body CT and sent to the workstation for review. CT dosereduction technique was used, including Automated Exposure Control. CT angiographyof the neck was obtained after the uneventful administration of 100 mLIsovue 370 intravenous contrast. Three dimensional postprocessing was performedby the technologist and sent to the workstation for review. Stenosis measurements are based on NASCET criteria. CT dose reduction techniquewas used, including Automated Exposure Control. COMPARISON: No prior study is available for comparison at the time ofthis dictation. FINDINGS: Head: No acute intra- or extra-axial fluid collections are identified. The ventricles are of normal size, shape, and morphology. The basilarcisterns are patent. No mass effect or midline shift is seen. The camara-whitematter differentiation is normal. Effacement of the sulci is likely a normal variant. The visualized portions of the orbits, paranasal sinuses, and mastoids appear normal. No acute fracture is identified. Left frontalscalp soft tissue swelling and overlaying lacerations with the skin defect and the soft tissue gas. No underlying fracture. Facial bones: The orbits including the globes, optic nerves, retrobulbar fat and extraocular muscles appear normal. There is mild paranasal sinusdisease.. Periodontal disease is present. Artifacts from the dental amalgam is limiting evaluation of the oral cavity. The hard palate, mandible, and temporomandibular joints appear otherwise grossly unremarkable. Chronic deviation of the nasal bones to the left. No acute facial bone fractures are identified. The mastoid air cells are clear. Rightward deviation ofthe nasal septum. No soft tissue abnormality is identified. Cervical spine: Postsurgical changes of anterior cervical discectomy and fusion at C7-T1 with intact appearing hardware. Mild levocurvature of the cervical spine. The alignment is otherwise grossly unremarkable. Vertebral bodies are normal in height without evidence of acute fracture. Other than middle atlantoaxial joint osteoarthritis, the craniocervical junction appears normal. There is advanced degenerative disc disease. No central canal stenosis is seen. There are varying degrees of advanced facet osteoarthritis. There are varying degrees of advanced uncovertebral joint osteoarthritis with the same degree of neural foraminal stenosis at these levels. No soft tissue abnormality is identified. Angiographic findings: The visible aortic arch appears normal. The configuration of the brachiocephalic vessels is typical. The innominate artery and both subclavian arteries appear normal. The right common and internal carotid arteries as well as the right carotid bifurcation appear normal. Theleft common and internal carotid arteries as well as the left carotid bifurcation appear normal. The cervical vertebral arteries appearnormal. No evidence of large arterial injury is identified. There is a 2.9 x 1.3 cm hypodense nodule in the left thyroid lobe. Thoracic spine: Mild dextro curvature of the thoracic spine. The alignment is normal. Vertebral bodies are normal in height without evidence of acutefracture. There is mild degenerative disc disease. No central canal stenosis isseen. There is mild facet osteoarthritis at multiple levels. No neuralforaminal stenosis is seen. There are atherosclerotic calcifications of thecoronary arteries. There is subsegmental atelectasis in the dependent portions of the lung bases. Lumbar spine: Straightening of the normal lumbar lordosis. Shallow S-shaped curvatureof the thoracolumbar spine. The alignment is otherwise maintained.Vertebral bodies are normal in height without evidence of acute fracture. There is advanced degenerative disc disease. Mild multilevel central canalstenosis is seen. There is advanced facet osteoarthritis at multiple levels,worst at L4-L5 and L5-S1, with decreased disc space height, vacuum disc phenomenon, and endplate sclerosis. There are varying degrees of neural foraminal stenosis at multiple levels. There is atherosclerotic calcification of the abdominal aorta and its branch vessels. Brain injury guidelines: Skull fracture: No Subdural hematoma: No subdural hematoma. Epidural hematoma: No epidural hematoma. Intraparenchymal hemorrhage: No intraparenchymal hemorrhage. Subarachnoid hemorrhage: No subarachnoid hemorrhage. Intraventricular hemorrhage: No. Midline shift: No. IMPRESSION: 1.No acute intracranial hemorrhage, midline shift, or significant mass effect. 2.No acute facial bone fractures identified. 3.No evidence of acute fracture in the cervical, thoracic, or lumbarspine. 4.No evidence of large arterial injury identified in the neck. 5.2.9 cm left thyroid lobe nodule, recommend correlation with dedicated thyroid ultrasound. 6.Please refer to the concurrent, dedicated body report for findings inthe chest, abdomen, and pelvis. > Dictated by Mariaa Weems MD, (residential appraiser) 05/07/2025 5:37 PM. > Dictated by Senior Audit Manager I, Jorge Noe MD have personally reviewed and interpretedthis examination/study. > Interpreting Provider: Jorge Noe MD on 05/07/2025 9:26 PM us Matt Man MD CT ORDERABLES Final Resu lt * CT THORACIC SPINE WO CONTRAST - T/L-spine trauma, spine fracture (05/07/2025 5:20 PM CDT) Anatomical Region Laterality Modality Spine Computed Tomogra phy 05/07/2025 5:37 PM CDT Impressions 05/07/2025 9:26 PM CDT IMPRESSION: 1.No acute intracranial hemorrhage, midline shift, or significant mass effect. 2.No acute facial bone fractures identified. 3.No evidence of acute fracture in the cervical, thoracic, or lumbar spine. 4.No evidence of large arterial injury identified in the neck. 5.2.9 cm left thyroid lobe nodule, recommend correlation with dedicated thyroid ultrasound. 6.Please refer to the concurrent, dedicated body report for findings in the chest, abdomen, and pelvis. > Dictated by Mariaa Weems MD, (residential appraiser) 05/07/2025 5:37 PM. > Dictated by Senior Audit Manager I, Jorge Noe MD have personally reviewed and interpreted this examination/study. > Interpreting Provider: Jorge Noe MD on 05/07/2025 9:26 PM Narrative 05/07/2025 9:26 PM CDT PROCEDURE: CT HEAD WO CONTRAST, CT ANGIO NECK, CT LUMBAR SPINE WO CONTRAST, CT THORACIC SPINE WO CONTRAST, CT CERVICAL SPINE WO CONTRAST, CT FACIAL BONES WO CONTRAST, DATE/TIME OF EXAM: 05/07/2025 5:23 PM, LOCATION [facility] INDICATION: T14.90XA: Trauma ADDITIONAL CLINICAL INFORMATION: Ordering Provider Reason For Exam: Trauma. Technologist Note: None. Additional: None. CONTRAST: IOPAMIDOL 76 % IV SOLN:100 mL EXAMINATION: 1.Computed tomography (CT) of the head without contrast 2.CT of the maxillofacial bones, orbits, and paranasal sinuses without contrast 3.CT of the cervical spine without contrast 4.CT of the thoracic spine without contrast 5.CT of the lumbar spine without contrast 6.CT angiography of the neck with contrast TECHNIQUE: CT of the head, cervical spine, and maxillofacial bones, orbits, and paranasal sinuses was performed without contrast according to standard protocol. Reformatted axial, sagittal, and coronal images of the thoracic and lumbar spine were obtained by the technologist from a concurrently performed body CT and sent to the workstation for review. CT dose reduction technique was used, including Automated Exposure Control. CT angiography of the neck was obtained after the uneventful administration of 100 mL Isovue 370 intravenous contrast. Three dimensional postprocessing was performed by the technologist and sent to the workstation for review. Stenosis measurements are based on NASCET criteria. CT dose reduction technique was used, including Automated Exposure Control. COMPARISON: No prior study is available for comparison at the time of this dictation. FINDINGS: Head: No acute intra- or extra-axial fluid collections are identified. The ventricles are of normal size, shape, and morphology. The basilar cisterns are patent. No mass effect or midline shift is seen. The camara-white matter differentiation is normal. Effacement of the sulci is likely a normal variant. The visualized portions of the orbits, paranasal sinuses, and mastoids appear normal. No acute fracture is identified. Left frontal scalp soft tissue swelling and overlaying lacerations with the skin defect and the soft tissue gas. No underlying fracture. Facial bones: The orbits including the globes, optic nerves, retrobulbar fat and extraocular muscles appear normal. There is mild paranasal sinus disease.. Periodontal disease is present. Artifacts from the dental amalgam is limiting evaluation of the oral cavity. The hard palate, mandible, and temporomandibular joints appear otherwise grossly unremarkable. Chronic deviation of the nasal bones to the left. No acute facial bone fractures are identified. The mastoid air cells are clear. Rightward deviation of the nasal septum. No soft tissue abnormality is identified. Cervical spine: Postsurgical changes of anterior cervical discectomy and fusion at C7-T1 with intact appearing hardware. Mild levocurvature of the cervical spine. The alignment is otherwise grossly unremarkable. Vertebral bodies are normal in height without evidence of acute fracture. Other than middle atlantoaxial joint osteoarthritis, the craniocervical junction appears normal. There is advanced degenerative disc disease. No central canal stenosis is seen. There are varying degrees of advanced facet osteoarthritis. There are varying degrees of advanced uncovertebral joint osteoarthritis with the same degree of neural foraminal stenosis at these levels. No soft tissue abnormality is identified. Angiographic findings: The visible aortic arch appears normal. The configuration of the brachiocephalic vessels is typical. The innominate artery and both subclavian arteries appear normal. The right common and internal carotid arteries as well as the right carotid bifurcation appear normal. The left common and internal carotid arteries as well as the left carotid bifurcation appear normal. The cervical vertebral arteries appear normal. No evidence of large arterial injury is identified. There is a 2.9 x 1.3 cm hypodense nodule in the left thyroid lobe. Thoracic spine: Mild dextro curvature of the thoracic spine. The alignment is normal. Vertebral bodies are normal in height without evidence of acute fracture. There is mild degenerative disc disease. No central canal stenosis is seen. There is mild facet osteoarthritis at multiple levels. No neural foraminal stenosis is seen. There are atherosclerotic calcifications of the coronary arteries. There is subsegmental atelectasis in the dependent portions of the lung bases. Lumbar spine: Straightening of the normal lumbar lordosis. Shallow S-shaped curvature of the thoracolumbar spine. The alignment is otherwise maintained. Vertebral bodies are normal in height without evidence of acute fracture. There is advanced degenerative disc disease. Mild multilevel central canal stenosis is seen. There is advanced facet osteoarthritis at multiple levels, worst at L4-L5 and L5-S1, with decreased disc space height, vacuum disc phenomenon, and endplate sclerosis. There are varying degrees of neural foraminal stenosis at multiple levels. There is atherosclerotic calcification of the abdominal aorta and its branch vessels. Brain injury guidelines: Skull fracture: No Subdural hematoma: No subdural hematoma. Epidural hematoma: No epidural hematoma. Intraparenchymal hemorrhage: No intraparenchymal hemorrhage. Subarachnoid hemorrhage: No subarachnoid hemorrhage. Intraventricular hemorrhage: No. Midline shift: No. Procedure Note Jorge Noe MD - 05/07/2025 PROCEDURE: CT HEAD WO CONTRAST, CT ANGIO NECK, CT LUMBAR SPINE WO CONTRAST, CT THORACIC SPINE WO CONTRAST, CT CERVICAL SPINE WO CONTRAST,CT FACIAL BONES WO CONTRAST, DATE/TIME OF EXAM: 05/07/2025 5:23 PM, LOCATION [facility] INDICATION: T14.90XA: Trauma ADDITIONAL CLINICAL INFORMATION: Ordering Provider Reason For Exam: Trauma. Technologist Note: None. Additional: None. CONTRAST: IOPAMIDOL 76 % IV SOLN:100 mL EXAMINATION: 1.Computed tomography (CT) of the head without contrast 2.CT of the maxillofacial bones, orbits, and paranasal sinuses without contrast 3.CT of the cervical spine without contrast 4.CT of the thoracic spine without contrast 5.CT of the lumbar spine without contrast 6.CT angiography of the neck with contrast TECHNIQUE: CT of the head, cervical spine, and maxillofacial bones,orbits, and paranasal sinuses was performed without contrast according tostandard protocol. Reformatted axial, sagittal, and coronal images of thethoracic and lumbar spine were obtained by the technologist from a concurrently performed body CT and sent to the workstation for review. CT dosereduction technique was used, including Automated Exposure Control. CT angiographyof the neck was obtained after the uneventful administration of 100 mLIsovue 370 intravenous contrast. Three dimensional postprocessing was performedby the technologist and sent to the workstation for review. Stenosis measurements are based on NASCET criteria. CT dose reduction techniquewas used, including Automated Exposure Control. COMPARISON: No prior study is available for comparison at the time ofthis dictation. FINDINGS: Head: No acute intra- or extra-axial fluid collections are identified. The ventricles are of normal size, shape, and morphology. The basilarcisterns are patent. No mass effect or midline shift is seen. The camara-whitematter differentiation is normal. Effacement of the sulci is likely a normal variant. The visualized portions of the orbits, paranasal sinuses, and mastoids appear normal. No acute fracture is identified. Left frontalscalp soft tissue swelling and overlaying lacerations with the skin defect and the soft tissue gas. No underlying fracture. Facial bones: The orbits including the globes, optic nerves, retrobulbar fat and extraocular muscles appear normal. There is mild paranasal sinusdisease.. Periodontal disease is present. Artifacts from the dental amalgam is limiting evaluation of the oral cavity. The hard palate, mandible, and temporomandibular joints appear otherwise grossly unremarkable. Chronic deviation of the nasal bones to the left. No acute facial bone fractures are identified. The mastoid air cells are clear. Rightward deviation ofthe nasal septum. No soft tissue abnormality is identified. Cervical spine: Postsurgical changes of anterior cervical discectomy and fusion at C7-T1 with intact appearing hardware. Mild levocurvature of the cervical spine. The alignment is otherwise grossly unremarkable. Vertebral bodies are normal in height without evidence of acute fracture. Other than middle atlantoaxial joint osteoarthritis, the craniocervical junction appears normal. There is advanced degenerative disc disease. No central canal stenosis is seen. There are varying degrees of advanced facet osteoarthritis. There are varying degrees of advanced uncovertebral joint osteoarthritis with the same degree of neural foraminal stenosis at these levels. No soft tissue abnormality is identified. Angiographic findings: The visible aortic arch appears normal. The configuration of the brachiocephalic vessels is typical. The innominate artery and both subclavian arteries appear normal. The right common and internal carotid arteries as well as the right carotid bifurcation appear normal. Theleft common and internal carotid arteries as well as the left carotid bifurcation appear normal. The cervical vertebral arteries appearnormal. No evidence of large arterial injury is identified. There is a 2.9 x 1.3 cm hypodense nodule in the left thyroid lobe. Thoracic spine: Mild dextro curvature of the thoracic spine. The alignment is normal. Vertebral bodies are normal in height without evidence of acutefracture. There is mild degenerative disc disease. No central canal stenosis isseen. There is mild facet osteoarthritis at multiple levels. No neuralforaminal stenosis is seen. There are atherosclerotic calcifications of thecoronary arteries. There is subsegmental atelectasis in the dependent portions of the lung bases. Lumbar spine: Straightening of the normal lumbar lordosis. Shallow S-shaped curvatureof the thoracolumbar spine. The alignment is otherwise maintained.Vertebral bodies are normal in height without evidence of acute fracture. There is advanced degenerative disc disease. Mild multilevel central canalstenosis is seen. There is advanced facet osteoarthritis at multiple levels,worst at L4-L5 and L5-S1, with decreased disc space height, vacuum disc phenomenon, and endplate sclerosis. There are varying degrees of neural foraminal stenosis at multiple levels. There is atherosclerotic calcification of the abdominal aorta and its branch vessels. Brain injury guidelines: Skull fracture: No Subdural hematoma: No subdural hematoma. Epidural hematoma: No epidural hematoma. Intraparenchymal hemorrhage: No intraparenchymal hemorrhage. Subarachnoid hemorrhage: No subarachnoid hemorrhage. Intraventricular hemorrhage: No. Midline shift: No. IMPRESSION: 1.No acute intracranial hemorrhage, midline shift, or significant mass effect. 2.No acute facial bone fractures identified. 3.No evidence of acute fracture in the cervical, thoracic, or lumbarspine. 4.No evidence of large arterial injury identified in the neck. 5.2.9 cm left thyroid lobe nodule, recommend correlation with dedicated thyroid ultrasound. 6.Please refer to the concurrent, dedicated body report for findings inthe chest, abdomen, and pelvis. > Dictated by Mariaa Weems MD, (residential appraiser) 05/07/2025 5:37 PM. > Dictated by Senior Audit Manager Mariam, Jorge Noe MD have personally reviewed and interpretedthis examination/study. > Interpreting Provider: Jorge Noe MD on 05/07/2025 9:26 PM Matt Man MD CT ORDERABLES Final Resu lt * CT CERVICAL SPINE WO CONTRAST - C-Spine Trauma, Spine fracture (05/07/2025 5:20 PM CDT) Anatomical Region Laterality Modality Spine Computed Tomogra phy 05/07/2025 5:37 PM CDT Impressions 05/07/2025 9:26 PM CDT IMPRESSION: 1.No acute intracranial hemorrhage, midline shift, or significant mass effect. 2.No acute facial bone fractures identified. 3.No evidence of acute fracture in the cervical, thoracic, or lumbar spine. 4.No evidence of large arterial injury identified in the neck. 5.2.9 cm left thyroid lobe nodule, recommend correlation with dedicated thyroid ultrasound. 6.Please refer to the concurrent, dedicated body report for findings in the chest, abdomen, and pelvis. > Dictated by Mariaa Weems MD, (residential appraiser) 05/07/2025 5:37 PM. > Dictated by Senior Audit Manager Jorge Becerra MD have personally reviewed and interpreted this examination/study. > Interpreting Provider: Jorge Noe MD on 05/07/2025 9:26 PM Narrative 05/07/2025 9:26 PM CDT PROCEDURE: CT HEAD WO CONTRAST, CT ANGIO NECK, CT LUMBAR SPINE WO CONTRAST, CT THORACIC SPINE WO CONTRAST, CT CERVICAL SPINE WO CONTRAST, CT FACIAL BONES WO CONTRAST, DATE/TIME OF EXAM: 05/07/2025 5:23 PM, LOCATION [facility] INDICATION: T14.90XA: Trauma ADDITIONAL CLINICAL INFORMATION: Ordering Provider Reason For Exam: Trauma. Technologist Note: None. Additional: None. CONTRAST: IOPAMIDOL 76 % IV SOLN:100 mL EXAMINATION: 1.Computed tomography (CT) of the head without contrast 2.CT of the maxillofacial bones, orbits, and paranasal sinuses without contrast 3.CT of the cervical spine without contrast 4.CT of the thoracic spine without contrast 5.CT of the lumbar spine without contrast 6.CT angiography of the neck with contrast TECHNIQUE: CT of the head, cervical spine, and maxillofacial bones, orbits, and paranasal sinuses was performed without contrast according to standard protocol. Reformatted axial, sagittal, and coronal images of the thoracic and lumbar spine were obtained by the technologist from a concurrently performed body CT and sent to the workstation for review. CT dose reduction technique was used, including Automated Exposure Control. CT angiography of the neck was obtained after the uneventful administration of 100 mL Isovue 370 intravenous contrast. Three dimensional postprocessing was performed by the technologist and sent to the workstation for review. Stenosis measurements are based on NASCET criteria. CT dose reduction technique was used, including Automated Exposure Control. COMPARISON: No prior study is available for comparison at the time of this dictation. FINDINGS: Head: No acute intra- or extra-axial fluid collections are identified. The ventricles are of normal size, shape, and morphology. The basilar cisterns are patent. No mass effect or midline shift is seen. The camara-white matter differentiation is normal. Effacement of the sulci is likely a normal variant. The visualized portions of the orbits, paranasal sinuses, and mastoids appear normal. No acute fracture is identified. Left frontal scalp soft tissue swelling and overlaying lacerations with the skin defect and the soft tissue gas. No underlying fracture. Facial bones: The orbits including the globes, optic nerves, retrobulbar fat and extraocular muscles appear normal. There is mild paranasal sinus disease.. Periodontal disease is present. Artifacts from the dental amalgam is limiting evaluation of the oral cavity. The hard palate, mandible, and temporomandibular joints appear otherwise grossly unremarkable. Chronic deviation of the nasal bones to the left. No acute facial bone fractures are identified. The mastoid air cells are clear. Rightward deviation of the nasal septum. No soft tissue abnormality is identified. Cervical spine: Postsurgical changes of anterior cervical discectomy and fusion at C7-T1 with intact appearing hardware. Mild levocurvature of the cervical spine. The alignment is otherwise grossly unremarkable. Vertebral bodies are normal in height without evidence of acute fracture. Other than middle atlantoaxial joint osteoarthritis, the craniocervical junction appears normal. There is advanced degenerative disc disease. No central canal stenosis is seen. There are varying degrees of advanced facet osteoarthritis. There are varying degrees of advanced uncovertebral joint osteoarthritis with the same degree of neural foraminal stenosis at these levels. No soft tissue abnormality is identified. Angiographic findings: The visible aortic arch appears normal. The configuration of the brachiocephalic vessels is typical. The innominate artery and both subclavian arteries appear normal. The right common and internal carotid arteries as well as the right carotid bifurcation appear normal. The left common and internal carotid arteries as well as the left carotid bifurcation appear normal. The cervical vertebral arteries appear normal. No evidence of large arterial injury is identified. There is a 2.9 x 1.3 cm hypodense nodule in the left thyroid lobe. Thoracic spine: Mild dextro curvature of the thoracic spine. The alignment is normal. Vertebral bodies are normal in height without evidence of acute fracture. There is mild degenerative disc disease. No central canal stenosis is seen. There is mild facet osteoarthritis at multiple levels. No neural foraminal stenosis is seen. There are atherosclerotic calcifications of the coronary arteries. There is subsegmental atelectasis in the dependent portions of the lung bases. Lumbar spine: Straightening of the normal lumbar lordosis. Shallow S-shaped curvature of the thoracolumbar spine. The alignment is otherwise maintained. Vertebral bodies are normal in height without evidence of acute fracture. There is advanced degenerative disc disease. Mild multilevel central canal stenosis is seen. There is advanced facet osteoarthritis at multiple levels, worst at L4-L5 and L5-S1, with decreased disc space height, vacuum disc phenomenon, and endplate sclerosis. There are varying degrees of neural foraminal stenosis at multiple levels. There is atherosclerotic calcification of the abdominal aorta and its branch vessels. Brain injury guidelines: Skull fracture: No Subdural hematoma: No subdural hematoma. Epidural hematoma: No epidural hematoma. Intraparenchymal hemorrhage: No intraparenchymal hemorrhage. Subarachnoid hemorrhage: No subarachnoid hemorrhage. Intraventricular hemorrhage: No. Midline shift: No. Procedure Note Jorge Noe MD - 05/07/2025 PROCEDURE: CT HEAD WO CONTRAST, CT ANGIO NECK, CT LUMBAR SPINE WO CONTRAST, CT THORACIC SPINE WO CONTRAST, CT CERVICAL SPINE WO CONTRAST,CT FACIAL BONES WO CONTRAST, DATE/TIME OF EXAM: 05/07/2025 5:23 PM, LOCATION [facility] INDICATION: T14.90XA: Trauma ADDITIONAL CLINICAL INFORMATION: Ordering Provider Reason For Exam: Trauma. Technologist Note: None. Additional: None. CONTRAST: IOPAMIDOL 76 % IV SOLN:100 mL EXAMINATION: 1.Computed tomography (CT) of the head without contrast 2.CT of the maxillofacial bones, orbits, and paranasal sinuses without contrast 3.CT of the cervical spine without contrast 4.CT of the thoracic spine without contrast 5.CT of the lumbar spine without contrast 6.CT angiography of the neck with contrast TECHNIQUE: CT of the head, cervical spine, and maxillofacial bones,orbits, and paranasal sinuses was performed without contrast according tostandard protocol. Reformatted axial, sagittal, and coronal images of thethoracic and lumbar spine were obtained by the technologist from a concurrently performed body CT and sent to the workstation for review. CT dosereduction technique was used, including Automated Exposure Control. CT angiographyof the neck was obtained after the uneventful administration of 100 mLIsovue 370 intravenous contrast. Three dimensional postprocessing was performedby the technologist and sent to the workstation for review. Stenosis measurements are based on NASCET criteria. CT dose reduction techniquewas used, including Automated Exposure Control. COMPARISON: No prior study is available for comparison at the time ofthis dictation. FINDINGS: Head: No acute intra- or extra-axial fluid collections are identified. The ventricles are of normal size, shape, and morphology. The basilarcisterns are patent. No mass effect or midline shift is seen. The camara-whitematter differentiation is normal. Effacement of the sulci is likely a normal variant. The visualized portions of the orbits, paranasal sinuses, and mastoids appear normal. No acute fracture is identified. Left frontalscalp soft tissue swelling and overlaying lacerations with the skin defect and the soft tissue gas. No underlying fracture. Facial bones: The orbits including the globes, optic nerves, retrobulbar fat and extraocular muscles appear normal. There is mild paranasal sinusdisease.. Periodontal disease is present. Artifacts from the dental amalgam is limiting evaluation of the oral cavity. The hard palate, mandible, and temporomandibular joints appear otherwise grossly unremarkable. Chronic deviation of the nasal bones to the left. No acute facial bone fractures are identified. The mastoid air cells are clear. Rightward deviation ofthe nasal septum. No soft tissue abnormality is identified. Cervical spine: Postsurgical changes of anterior cervical discectomy and fusion at C7-T1 with intact appearing hardware. Mild levocurvature of the cervical spine. The alignment is otherwise grossly unremarkable. Vertebral bodies are normal in height without evidence of acute fracture. Other than middle atlantoaxial joint osteoarthritis, the craniocervical junction appears normal. There is advanced degenerative disc disease. No central canal stenosis is seen. There are varying degrees of advanced facet osteoarthritis. There are varying degrees of advanced uncovertebral joint osteoarthritis with the same degree of neural foraminal stenosis at these levels. No soft tissue abnormality is identified. Angiographic findings: The visible aortic arch appears normal. The configuration of the brachiocephalic vessels is typical. The innominate artery and both subclavian arteries appear normal. The right common and internal carotid arteries as well as the right carotid bifurcation appear normal. Theleft common and internal carotid arteries as well as the left carotid bifurcation appear normal. The cervical vertebral arteries appearnormal. No evidence of large arterial injury is identified. There is a 2.9 x 1.3 cm hypodense nodule in the left thyroid lobe. Thoracic spine: Mild dextro curvature of the thoracic spine. The alignment is normal. Vertebral bodies are normal in height without evidence of acutefracture. There is mild degenerative disc disease. No central canal stenosis isseen. There is mild facet osteoarthritis at multiple levels. No neuralforaminal stenosis is seen. There are atherosclerotic calcifications of thecoronary arteries. There is subsegmental atelectasis in the dependent portions of the lung bases. Lumbar spine: Straightening of the normal lumbar lordosis. Shallow S-shaped curvatureof the thoracolumbar spine. The alignment is otherwise maintained.Vertebral bodies are normal in height without evidence of acute fracture. There is advanced degenerative disc disease. Mild multilevel central canalstenosis is seen. There is advanced facet osteoarthritis at multiple levels,worst at L4-L5 and L5-S1, with decreased disc space height, vacuum disc phenomenon, and endplate sclerosis. There are varying degrees of neural foraminal stenosis at multiple levels. There is atherosclerotic calcification of the abdominal aorta and its branch vessels. Brain injury guidelines: Skull fracture: No Subdural hematoma: No subdural hematoma. Epidural hematoma: No epidural hematoma. Intraparenchymal hemorrhage: No intraparenchymal hemorrhage. Subarachnoid hemorrhage: No subarachnoid hemorrhage. Intraventricular hemorrhage: No. Midline shift: No. IMPRESSION: 1.No acute intracranial hemorrhage, midline shift, or significant mass effect. 2.No acute facial bone fractures identified. 3.No evidence of acute fracture in the cervical, thoracic, or lumbarspine. 4.No evidence of large arterial injury identified in the neck. 5.2.9 cm left thyroid lobe nodule, recommend correlation with dedicated thyroid ultrasound. 6.Please refer to the concurrent, dedicated body report for findings inthe chest, abdomen, and pelvis. > Dictated by Mariaa Weems MD, (residential appraiser) 05/07/2025 5:37 PM. > Dictated by Senior Audit Manager Jorge Becerra MD have personally reviewed and interpretedthis examination/study. > Interpreting Provider: Jorge Noe MD on 05/07/2025 9:26 PM Matt Man MD CT ORDERABLES Final Resu lt * CT ANGIO NECK - Neck Trauma, inj suspected, blunt or penetrating (05/07/2025 5:20 PM CDT) Anatomical Region Laterality Modality Head Computed Tomogra phy 05/07/2025 5:37 PM CDT Impressions 05/07/2025 9:26 PM CDT IMPRESSION: 1.No acute intracranial hemorrhage, midline shift, or significant mass effect. 2.No acute facial bone fractures identified. 3.No evidence of acute fracture in the cervical, thoracic, or lumbar spine. 4.No evidence of large arterial injury identified in the neck. 5.2.9 cm left thyroid lobe nodule, recommend correlation with dedicated thyroid ultrasound. 6.Please refer to the concurrent, dedicated body report for findings in the chest, abdomen, and pelvis. > Dictated by Mariaa Weems MD, (residential appraiser) 05/07/2025 5:37 PM. > Dictated by Senior Audit Manager Jorge Becerra MD have personally reviewed and interpreted this examination/study. > Interpreting Provider: Jorge Noe MD on 05/07/2025 9:26 PM Narrative 05/07/2025 9:26 PM CDT PROCEDURE: CT HEAD WO CONTRAST, CT ANGIO NECK, CT LUMBAR SPINE WO CONTRAST, CT THORACIC SPINE WO CONTRAST, CT CERVICAL SPINE WO CONTRAST, CT FACIAL BONES WO CONTRAST, DATE/TIME OF EXAM: 05/07/2025 5:23 PM, LOCATION [facility] INDICATION: T14.90XA: Trauma ADDITIONAL CLINICAL INFORMATION: Ordering Provider Reason For Exam: Trauma. Technologist Note: None. Additional: None. CONTRAST: IOPAMIDOL 76 % IV SOLN:100 mL EXAMINATION: 1.Computed tomography (CT) of the head without contrast 2.CT of the maxillofacial bones, orbits, and paranasal sinuses without contrast 3.CT of the cervical spine without contrast 4.CT of the thoracic spine without contrast 5.CT of the lumbar spine without contrast 6.CT angiography of the neck with contrast TECHNIQUE: CT of the head, cervical spine, and maxillofacial bones, orbits, and paranasal sinuses was performed without contrast according to standard protocol. Reformatted axial, sagittal, and coronal images of the thoracic and lumbar spine were obtained by the technologist from a concurrently performed body CT and sent to the workstation for review. CT dose reduction technique was used, including Automated Exposure Control. CT angiography of the neck was obtained after the uneventful administration of 100 mL Isovue 370 intravenous contrast. Three dimensional postprocessing was performed by the technologist and sent to the workstation for review. Stenosis measurements are based on NASCET criteria. CT dose reduction technique was used, including Automated Exposure Control. COMPARISON: No prior study is available for comparison at the time of this dictation. FINDINGS: Head: No acute intra- or extra-axial fluid collections are identified. The ventricles are of normal size, shape, and morphology. The basilar cisterns are patent. No mass effect or midline shift is seen. The camara-white matter differentiation is normal. Effacement of the sulci is likely a normal variant. The visualized portions of the orbits, paranasal sinuses, and mastoids appear normal. No acute fracture is identified. Left frontal scalp soft tissue swelling and overlaying lacerations with the skin defect and the soft tissue gas. No underlying fracture. Facial bones: The orbits including the globes, optic nerves, retrobulbar fat and extraocular muscles appear normal. There is mild paranasal sinus disease.. Periodontal disease is present. Artifacts from the dental amalgam is limiting evaluation of the oral cavity. The hard palate, mandible, and temporomandibular joints appear otherwise grossly unremarkable. Chronic deviation of the nasal bones to the left. No acute facial bone fractures are identified. The mastoid air cells are clear. Rightward deviation of the nasal septum. No soft tissue abnormality is identified. Cervical spine: Postsurgical changes of anterior cervical discectomy and fusion at C7-T1 with intact appearing hardware. Mild levocurvature of the cervical spine. The alignment is otherwise grossly unremarkable. Vertebral bodies are normal in height without evidence of acute fracture. Other than middle atlantoaxial joint osteoarthritis, the craniocervical junction appears normal. There is advanced degenerative disc disease. No central canal stenosis is seen. There are varying degrees of advanced facet osteoarthritis. There are varying degrees of advanced uncovertebral joint osteoarthritis with the same degree of neural foraminal stenosis at these levels. No soft tissue abnormality is identified. Angiographic findings: The visible aortic arch appears normal. The configuration of the brachiocephalic vessels is typical. The innominate artery and both subclavian arteries appear normal. The right common and internal carotid arteries as well as the right carotid bifurcation appear normal. The left common and internal carotid arteries as well as the left carotid bifurcation appear normal. The cervical vertebral arteries appear normal. No evidence of large arterial injury is identified. There is a 2.9 x 1.3 cm hypodense nodule in the left thyroid lobe. Thoracic spine: Mild dextro curvature of the thoracic spine. The alignment is normal. Vertebral bodies are normal in height without evidence of acute fracture. There is mild degenerative disc disease. No central canal stenosis is seen. There is mild facet osteoarthritis at multiple levels. No neural foraminal stenosis is seen. There are atherosclerotic calcifications of the coronary arteries. There is subsegmental atelectasis in the dependent portions of the lung bases. Lumbar spine: Straightening of the normal lumbar lordosis. Shallow S-shaped curvature of the thoracolumbar spine. The alignment is otherwise maintained. Vertebral bodies are normal in height without evidence of acute fracture. There is advanced degenerative disc disease. Mild multilevel central canal stenosis is seen. There is advanced facet osteoarthritis at multiple levels, worst at L4-L5 and L5-S1, with decreased disc space height, vacuum disc phenomenon, and endplate sclerosis. There are varying degrees of neural foraminal stenosis at multiple levels. There is atherosclerotic calcification of the abdominal aorta and its branch vessels. Brain injury guidelines: Skull fracture: No Subdural hematoma: No subdural hematoma. Epidural hematoma: No epidural hematoma. Intraparenchymal hemorrhage: No intraparenchymal hemorrhage. Subarachnoid hemorrhage: No subarachnoid hemorrhage. Intraventricular hemorrhage: No. Midline shift: No. Procedure Note Jorge Noe MD - 05/07/2025 PROCEDURE: CT HEAD WO CONTRAST, CT ANGIO NECK, CT LUMBAR SPINE WO CONTRAST, CT THORACIC SPINE WO CONTRAST, CT CERVICAL SPINE WO CONTRAST,CT FACIAL BONES WO CONTRAST, DATE/TIME OF EXAM: 05/07/2025 5:23 PM, LOCATION [facility] INDICATION: T14.90XA: Trauma ADDITIONAL CLINICAL INFORMATION: Ordering Provider Reason For Exam: Trauma. Technologist Note: None. Additional: None. CONTRAST: IOPAMIDOL 76 % IV SOLN:100 mL EXAMINATION: 1.Computed tomography (CT) of the head without contrast 2.CT of the maxillofacial bones, orbits, and paranasal sinuses without contrast 3.CT of the cervical spine without contrast 4.CT of the thoracic spine without contrast 5.CT of the lumbar spine without contrast 6.CT angiography of the neck with contrast TECHNIQUE: CT of the head, cervical spine, and maxillofacial bones,orbits, and paranasal sinuses was performed without contrast according tostandard protocol. Reformatted axial, sagittal, and coronal images of thethoracic and lumbar spine were obtained by the technologist from a concurrently performed body CT and sent to the workstation for review. CT dosereduction technique was used, including Automated Exposure Control. CT angiographyof the neck was obtained after the uneventful administration of 100 mLIsovue 370 intravenous contrast. Three dimensional postprocessing was performedby the technologist and sent to the workstation for review. Stenosis measurements are based on NASCET criteria. CT dose reduction techniquewas used, including Automated Exposure Control. COMPARISON: No prior study is available for comparison at the time ofthis dictation. FINDINGS: Head: No acute intra- or extra-axial fluid collections are identified. The ventricles are of normal size, shape, and morphology. The basilarcisterns are patent. No mass effect or midline shift is seen. The camara-whitematter differentiation is normal. Effacement of the sulci is likely a normal variant. The visualized portions of the orbits, paranasal sinuses, and mastoids appear normal. No acute fracture is identified. Left frontalscalp soft tissue swelling and overlaying lacerations with the skin defect and the soft tissue gas. No underlying fracture. Facial bones: The orbits including the globes, optic nerves, retrobulbar fat and extraocular muscles appear normal. There is mild paranasal sinusdisease.. Periodontal disease is present. Artifacts from the dental amalgam is limiting evaluation of the oral cavity. The hard palate, mandible, and temporomandibular joints appear otherwise grossly unremarkable. Chronic deviation of the nasal bones to the left. No acute facial bone fractures are identified. The mastoid air cells are clear. Rightward deviation ofthe nasal septum. No soft tissue abnormality is identified. Cervical spine: Postsurgical changes of anterior cervical discectomy and fusion at C7-T1 with intact appearing hardware. Mild levocurvature of the cervical spine. The alignment is otherwise grossly unremarkable. Vertebral bodies are normal in height without evidence of acute fracture. Other than middle atlantoaxial joint osteoarthritis, the craniocervical junction appears normal. There is advanced degenerative disc disease. No central canal stenosis is seen. There are varying degrees of advanced facet osteoarthritis. There are varying degrees of advanced uncovertebral joint osteoarthritis with the same degree of neural foraminal stenosis at these levels. No soft tissue abnormality is identified. Angiographic findings: The visible aortic arch appears normal. The configuration of the brachiocephalic vessels is typical. The innominate artery and both subclavian arteries appear normal. The right common and internal carotid arteries as well as the right carotid bifurcation appear normal. Theleft common and internal carotid arteries as well as the left carotid bifurcation appear normal. The cervical vertebral arteries appearnormal. No evidence of large arterial injury is identified. There is a 2.9 x 1.3 cm hypodense nodule in the left thyroid lobe. Thoracic spine: Mild dextro curvature of the thoracic spine. The alignment is normal. Vertebral bodies are normal in height without evidence of acutefracture. There is mild degenerative disc disease. No central canal stenosis isseen. There is mild facet osteoarthritis at multiple levels. No neuralforaminal stenosis is seen. There are atherosclerotic calcifications of thecoronary arteries. There is subsegmental atelectasis in the dependent portions of the lung bases. Lumbar spine: Straightening of the normal lumbar lordosis. Shallow S-shaped curvatureof the thoracolumbar spine. The alignment is otherwise maintained.Vertebral bodies are normal in height without evidence of acute fracture. There is advanced degenerative disc disease. Mild multilevel central canalstenosis is seen. There is advanced facet osteoarthritis at multiple levels,worst at L4-L5 and L5-S1, with decreased disc space height, vacuum disc phenomenon, and endplate sclerosis. There are varying degrees of neural foraminal stenosis at multiple levels. There is atherosclerotic calcification of the abdominal aorta and its branch vessels. Brain injury guidelines: Skull fracture: No Subdural hematoma: No subdural hematoma. Epidural hematoma: No epidural hematoma. Intraparenchymal hemorrhage: No intraparenchymal hemorrhage. Subarachnoid hemorrhage: No subarachnoid hemorrhage. Intraventricular hemorrhage: No. Midline shift: No. IMPRESSION: 1.No acute intracranial hemorrhage, midline shift, or significant mass effect. 2.No acute facial bone fractures identified. 3.No evidence of acute fracture in the cervical, thoracic, or lumbarspine. 4.No evidence of large arterial injury identified in the neck. 5.2.9 cm left thyroid lobe nodule, recommend correlation with dedicated thyroid ultrasound. 6.Please refer to the concurrent, dedicated body report for findings inthe chest, abdomen, and pelvis. > Dictated by Mariaa Weems MD, (residential appraiser) 05/07/2025 5:37 PM. > Dictated by Senior Audit Manager I, Jorge Noe MD have personally reviewed and interpretedthis examination/study. > Interpreting Provider: Jorge Noe MD on 05/07/2025 9:26 PM Matt Man MD CT ORDERABLES Final Resu lt * CT FACIAL BONES WO CONTRAST - Facial trauma, fx suspected, blunt (05/07/2025 5:20 PM CDT) Anatomical Region Laterality Modality Head Computed Tomogra phy 05/07/2025 5:37 PM CDT Impressions 05/07/2025 9:26 PM CDT IMPRESSION: 1.No acute intracranial hemorrhage, midline shift, or significant mass effect. 2.No acute facial bone fractures identified. 3.No evidence of acute fracture in the cervical, thoracic, or lumbar spine. 4.No evidence of large arterial injury identified in the neck. 5.2.9 cm left thyroid lobe nodule, recommend correlation with dedicated thyroid ultrasound. 6.Please refer to the concurrent, dedicated body report for findings in the chest, abdomen, and pelvis. > Dictated by Mariaa Weems MD, (residential appraiser) 05/07/2025 5:37 PM. > Dictated by Senior Audit Manager I, Jorge Noe MD have personally reviewed and interpreted this examination/study. > Interpreting Provider: Jorge Noe MD on 05/07/2025 9:26 PM Narrative 05/07/2025 9:26 PM CDT PROCEDURE: CT HEAD WO CONTRAST, CT ANGIO NECK, CT LUMBAR SPINE WO CONTRAST, CT THORACIC SPINE WO CONTRAST, CT CERVICAL SPINE WO CONTRAST, CT FACIAL BONES WO CONTRAST, DATE/TIME OF EXAM: 05/07/2025 5:23 PM, LOCATION [facility] INDICATION: T14.90XA: Trauma ADDITIONAL CLINICAL INFORMATION: Ordering Provider Reason For Exam: Trauma. Technologist Note: None. Additional: None. CONTRAST: IOPAMIDOL 76 % IV SOLN:100 mL EXAMINATION: 1.Computed tomography (CT) of the head without contrast 2.CT of the maxillofacial bones, orbits, and paranasal sinuses without contrast 3.CT of the cervical spine without contrast 4.CT of the thoracic spine without contrast 5.CT of the lumbar spine without contrast 6.CT angiography of the neck with contrast TECHNIQUE: CT of the head, cervical spine, and maxillofacial bones, orbits, and paranasal sinuses was performed without contrast according to standard protocol. Reformatted axial, sagittal, and coronal images of the thoracic and lumbar spine were obtained by the technologist from a concurrently performed body CT and sent to the workstation for review. CT dose reduction technique was used, including Automated Exposure Control. CT angiography of the neck was obtained after the uneventful administration of 100 mL Isovue 370 intravenous contrast. Three dimensional postprocessing was performed by the technologist and sent to the workstation for review. Stenosis measurements are based on NASCET criteria. CT dose reduction technique was used, including Automated Exposure Control. COMPARISON: No prior study is available for comparison at the time of this dictation. FINDINGS: Head: No acute intra- or extra-axial fluid collections are identified. The ventricles are of normal size, shape, and morphology. The basilar cisterns are patent. No mass effect or midline shift is seen. The camara-white matter differentiation is normal. Effacement of the sulci is likely a normal variant. The visualized portions of the orbits, paranasal sinuses, and mastoids appear normal. No acute fracture is identified. Left frontal scalp soft tissue swelling and overlaying lacerations with the skin defect and the soft tissue gas. No underlying fracture. Facial bones: The orbits including the globes, optic nerves, retrobulbar fat and extraocular muscles appear normal. There is mild paranasal sinus disease.. Periodontal disease is present. Artifacts from the dental amalgam is limiting evaluation of the oral cavity. The hard palate, mandible, and temporomandibular joints appear otherwise grossly unremarkable. Chronic deviation of the nasal bones to the left. No acute facial bone fractures are identified. The mastoid air cells are clear. Rightward deviation of the nasal septum. No soft tissue abnormality is identified. Cervical spine: Postsurgical changes of anterior cervical discectomy and fusion at C7-T1 with intact appearing hardware. Mild levocurvature of the cervical spine. The alignment is otherwise grossly unremarkable. Vertebral bodies are normal in height without evidence of acute fracture. Other than middle atlantoaxial joint osteoarthritis, the craniocervical junction appears normal. There is advanced degenerative disc disease. No central canal stenosis is seen. There are varying degrees of advanced facet osteoarthritis. There are varying degrees of advanced uncovertebral joint osteoarthritis with the same degree of neural foraminal stenosis at these levels. No soft tissue abnormality is identified. Angiographic findings: The visible aortic arch appears normal. The configuration of the brachiocephalic vessels is typical. The innominate artery and both subclavian arteries appear normal. The right common and internal carotid arteries as well as the right carotid bifurcation appear normal. The left common and internal carotid arteries as well as the left carotid bifurcation appear normal. The cervical vertebral arteries appear normal. No evidence of large arterial injury is identified. There is a 2.9 x 1.3 cm hypodense nodule in the left thyroid lobe. Thoracic spine: Mild dextro curvature of the thoracic spine. The alignment is normal. Vertebral bodies are normal in height without evidence of acute fracture. There is mild degenerative disc disease. No central canal stenosis is seen. There is mild facet osteoarthritis at multiple levels. No neural foraminal stenosis is seen. There are atherosclerotic calcifications of the coronary arteries. There is subsegmental atelectasis in the dependent portions of the lung bases. Lumbar spine: Straightening of the normal lumbar lordosis. Shallow S-shaped curvature of the thoracolumbar spine. The alignment is otherwise maintained. Vertebral bodies are normal in height without evidence of acute fracture. There is advanced degenerative disc disease. Mild multilevel central canal stenosis is seen. There is advanced facet osteoarthritis at multiple levels, worst at L4-L5 and L5-S1, with decreased disc space height, vacuum disc phenomenon, and endplate sclerosis. There are varying degrees of neural foraminal stenosis at multiple levels. There is atherosclerotic calcification of the abdominal aorta and its branch vessels. Brain injury guidelines: Skull fracture: No Subdural hematoma: No subdural hematoma. Epidural hematoma: No epidural hematoma. Intraparenchymal hemorrhage: No intraparenchymal hemorrhage. Subarachnoid hemorrhage: No subarachnoid hemorrhage. Intraventricular hemorrhage: No. Midline shift: No. Procedure Note Jorge Noe MD - 05/07/2025 PROCEDURE: CT HEAD WO CONTRAST, CT ANGIO NECK, CT LUMBAR SPINE WO CONTRAST, CT THORACIC SPINE WO CONTRAST, CT CERVICAL SPINE WO CONTRAST,CT FACIAL BONES WO CONTRAST, DATE/TIME OF EXAM: 05/07/2025 5:23 PM, LOCATION [facility] INDICATION: T14.90XA: Trauma ADDITIONAL CLINICAL INFORMATION: Ordering Provider Reason For Exam: Trauma. Technologist Note: None. Additional: None. CONTRAST: IOPAMIDOL 76 % IV SOLN:100 mL EXAMINATION: 1.Computed tomography (CT) of the head without contrast 2.CT of the maxillofacial bones, orbits, and paranasal sinuses without contrast 3.CT of the cervical spine without contrast 4.CT of the thoracic spine without contrast 5.CT of the lumbar spine without contrast 6.CT angiography of the neck with contrast TECHNIQUE: CT of the head, cervical spine, and maxillofacial bones,orbits, and paranasal sinuses was performed without contrast according tostandard protocol. Reformatted axial, sagittal, and coronal images of thethoracic and lumbar spine were obtained by the technologist from a concurrently performed body CT and sent to the workstation for review. CT dosereduction technique was used, including Automated Exposure Control. CT angiographyof the neck was obtained after the uneventful administration of 100 mLIsovue 370 intravenous contrast. Three dimensional postprocessing was performedby the technologist and sent to the workstation for review. Stenosis measurements are based on NASCET criteria. CT dose reduction techniquewas used, including Automated Exposure Control. COMPARISON: No prior study is available for comparison at the time ofthis dictation. FINDINGS: Head: No acute intra- or extra-axial fluid collections are identified. The ventricles are of normal size, shape, and morphology. The basilarcisterns are patent. No mass effect or midline shift is seen. The camara-whitematter differentiation is normal. Effacement of the sulci is likely a normal variant. The visualized portions of the orbits, paranasal sinuses, and mastoids appear normal. No acute fracture is identified. Left frontalscalp soft tissue swelling and overlaying lacerations with the skin defect and the soft tissue gas. No underlying fracture. Facial bones: The orbits including the globes, optic nerves, retrobulbar fat and extraocular muscles appear normal. There is mild paranasal sinusdisease.. Periodontal disease is present. Artifacts from the dental amalgam is limiting evaluation of the oral cavity. The hard palate, mandible, and temporomandibular joints appear otherwise grossly unremarkable. Chronic deviation of the nasal bones to the left. No acute facial bone fractures are identified. The mastoid air cells are clear. Rightward deviation ofthe nasal septum. No soft tissue abnormality is identified. Cervical spine: Postsurgical changes of anterior cervical discectomy and fusion at C7-T1 with intact appearing hardware. Mild levocurvature of the cervical spine. The alignment is otherwise grossly unremarkable. Vertebral bodies are normal in height without evidence of acute fracture. Other than middle atlantoaxial joint osteoarthritis, the craniocervical junction appears normal. There is advanced degenerative disc disease. No central canal stenosis is seen. There are varying degrees of advanced facet osteoarthritis. There are varying degrees of advanced uncovertebral joint osteoarthritis with the same degree of neural foraminal stenosis at these levels. No soft tissue abnormality is identified. Angiographic findings: The visible aortic arch appears normal. The configuration of the brachiocephalic vessels is typical. The innominate artery and both subclavian arteries appear normal. The right common and internal carotid arteries as well as the right carotid bifurcation appear normal. Theleft common and internal carotid arteries as well as the left carotid bifurcation appear normal. The cervical vertebral arteries appearnormal. No evidence of large arterial injury is identified. There is a 2.9 x 1.3 cm hypodense nodule in the left thyroid lobe. Thoracic spine: Mild dextro curvature of the thoracic spine. The alignment is normal. Vertebral bodies are normal in height without evidence of acutefracture. There is mild degenerative disc disease. No central canal stenosis isseen. There is mild facet osteoarthritis at multiple levels. No neuralforaminal stenosis is seen. There are atherosclerotic calcifications of thecoronary arteries. There is subsegmental atelectasis in the dependent portions of the lung bases. Lumbar spine: Straightening of the normal lumbar lordosis. Shallow S-shaped curvatureof the thoracolumbar spine. The alignment is otherwise maintained.Vertebral bodies are normal in height without evidence of acute fracture. There is advanced degenerative disc disease. Mild multilevel central canalstenosis is seen. There is advanced facet osteoarthritis at multiple levels,worst at L4-L5 and L5-S1, with decreased disc space height, vacuum disc phenomenon, and endplate sclerosis. There are varying degrees of neural foraminal stenosis at multiple levels. There is atherosclerotic calcification of the abdominal aorta and its branch vessels. Brain injury guidelines: Skull fracture: No Subdural hematoma: No subdural hematoma. Epidural hematoma: No epidural hematoma. Intraparenchymal hemorrhage: No intraparenchymal hemorrhage. Subarachnoid hemorrhage: No subarachnoid hemorrhage. Intraventricular hemorrhage: No. Midline shift: No. IMPRESSION: 1.No acute intracranial hemorrhage, midline shift, or significant mass effect. 2.No acute facial bone fractures identified. 3.No evidence of acute fracture in the cervical, thoracic, or lumbarspine. 4.No evidence of large arterial injury identified in the neck. 5.2.9 cm left thyroid lobe nodule, recommend correlation with dedicated thyroid ultrasound. 6.Please refer to the concurrent, dedicated body report for findings inthe chest, abdomen, and pelvis. > Dictated by Mariaa Weems MD, (residential appraiser) 05/07/2025 5:37 PM. > Dictated by Senior Audit Manager I, Jorge Noe MD have personally reviewed and interpretedthis examination/study. > Interpreting Provider: Jorge Noe MD on 05/07/2025 9:26 PM us Matt Man MD CT ORDERABLES Final Resu lt * CT HEAD WO CONTRAST - Head Trauma, CSF leak, mental status changes (05/07/2025 5:20 PM CDT) Anatomical Region Laterality Modality Head Computed Tomogra phy 05/07/2025 5:37 PM CDT Impressions 05/07/2025 9:26 PM CDT IMPRESSION: 1.No acute intracranial hemorrhage, midline shift, or significant mass effect. 2.No acute facial bone fractures identified. 3.No evidence of acute fracture in the cervical, thoracic, or lumbar spine. 4.No evidence of large arterial injury identified in the neck. 5.2.9 cm left thyroid lobe nodule, recommend correlation with dedicated thyroid ultrasound. 6.Please refer to the concurrent, dedicated body report for findings in the chest, abdomen, and pelvis. > Dictated by Mariaa Weems MD, (residential appraiser) 05/07/2025 5:37 PM. > Dictated by Senior Audit Manager I, Jorge Noe MD have personally reviewed and interpreted this examination/study. > Interpreting Provider: Jorge Noe MD on 05/07/2025 9:26 PM Narrative 05/07/2025 9:26 PM CDT PROCEDURE: CT HEAD WO CONTRAST, CT ANGIO NECK, CT LUMBAR SPINE WO CONTRAST, CT THORACIC SPINE WO CONTRAST, CT CERVICAL SPINE WO CONTRAST, CT FACIAL BONES WO CONTRAST, DATE/TIME OF EXAM: 05/07/2025 5:23 PM, LOCATION [facility] INDICATION: T14.90XA: Trauma ADDITIONAL CLINICAL INFORMATION: Ordering Provider Reason For Exam: Trauma. Technologist Note: None. Additional: None. CONTRAST: IOPAMIDOL 76 % IV SOLN:100 mL EXAMINATION: 1.Computed tomography (CT) of the head without contrast 2.CT of the maxillofacial bones, orbits, and paranasal sinuses without contrast 3.CT of the cervical spine without contrast 4.CT of the thoracic spine without contrast 5.CT of the lumbar spine without contrast 6.CT angiography of the neck with contrast TECHNIQUE: CT of the head, cervical spine, and maxillofacial bones, orbits, and paranasal sinuses was performed without contrast according to standard protocol. Reformatted axial, sagittal, and coronal images of the thoracic and lumbar spine were obtained by the technologist from a concurrently performed body CT and sent to the workstation for review. CT dose reduction technique was used, including Automated Exposure Control. CT angiography of the neck was obtained after the uneventful administration of 100 mL Isovue 370 intravenous contrast. Three dimensional postprocessing was performed by the technologist and sent to the workstation for review. Stenosis measurements are based on NASCET criteria. CT dose reduction technique was used, including Automated Exposure Control. COMPARISON: No prior study is available for comparison at the time of this dictation. FINDINGS: Head: No acute intra- or extra-axial fluid collections are identified. The ventricles are of normal size, shape, and morphology. The basilar cisterns are patent. No mass effect or midline shift is seen. The camara-white matter differentiation is normal. Effacement of the sulci is likely a normal variant. The visualized portions of the orbits, paranasal sinuses, and mastoids appear normal. No acute fracture is identified. Left frontal scalp soft tissue swelling and overlaying lacerations with the skin defect and the soft tissue gas. No underlying fracture. Facial bones: The orbits including the globes, optic nerves, retrobulbar fat and extraocular muscles appear normal. There is mild paranasal sinus disease.. Periodontal disease is present. Artifacts from the dental amalgam is limiting evaluation of the oral cavity. The hard palate, mandible, and temporomandibular joints appear otherwise grossly unremarkable. Chronic deviation of the nasal bones to the left. No acute facial bone fractures are identified. The mastoid air cells are clear. Rightward deviation of the nasal septum. No soft tissue abnormality is identified. Cervical spine: Postsurgical changes of anterior cervical discectomy and fusion at C7-T1 with intact appearing hardware. Mild levocurvature of the cervical spine. The alignment is otherwise grossly unremarkable. Vertebral bodies are normal in height without evidence of acute fracture. Other than middle atlantoaxial joint osteoarthritis, the craniocervical junction appears normal. There is advanced degenerative disc disease. No central canal stenosis is seen. There are varying degrees of advanced facet osteoarthritis. There are varying degrees of advanced uncovertebral joint osteoarthritis with the same degree of neural foraminal stenosis at these levels. No soft tissue abnormality is identified. Angiographic findings: The visible aortic arch appears normal. The configuration of the brachiocephalic vessels is typical. The innominate artery and both subclavian arteries appear normal. The right common and internal carotid arteries as well as the right carotid bifurcation appear normal. The left common and internal carotid arteries as well as the left carotid bifurcation appear normal. The cervical vertebral arteries appear normal. No evidence of large arterial injury is identified. There is a 2.9 x 1.3 cm hypodense nodule in the left thyroid lobe. Thoracic spine: Mild dextro curvature of the thoracic spine. The alignment is normal. Vertebral bodies are normal in height without evidence of acute fracture. There is mild degenerative disc disease. No central canal stenosis is seen. There is mild facet osteoarthritis at multiple levels. No neural foraminal stenosis is seen. There are atherosclerotic calcifications of the coronary arteries. There is subsegmental atelectasis in the dependent portions of the lung bases. Lumbar spine: Straightening of the normal lumbar lordosis. Shallow S-shaped curvature of the thoracolumbar spine. The alignment is otherwise maintained. Vertebral bodies are normal in height without evidence of acute fracture. There is advanced degenerative disc disease. Mild multilevel central canal stenosis is seen. There is advanced facet osteoarthritis at multiple levels, worst at L4-L5 and L5-S1, with decreased disc space height, vacuum disc phenomenon, and endplate sclerosis. There are varying degrees of neural foraminal stenosis at multiple levels. There is atherosclerotic calcification of the abdominal aorta and its branch vessels. Brain injury guidelines: Skull fracture: No Subdural hematoma: No subdural hematoma. Epidural hematoma: No epidural hematoma. Intraparenchymal hemorrhage: No intraparenchymal hemorrhage. Subarachnoid hemorrhage: No subarachnoid hemorrhage. Intraventricular hemorrhage: No. Midline shift: No. Procedure Note Jorge Noe MD - 05/07/2025 PROCEDURE: CT HEAD WO CONTRAST, CT ANGIO NECK, CT LUMBAR SPINE WO CONTRAST, CT THORACIC SPINE WO CONTRAST, CT CERVICAL SPINE WO CONTRAST,CT FACIAL BONES WO CONTRAST, DATE/TIME OF EXAM: 05/07/2025 5:23 PM, LOCATION [facility] INDICATION: T14.90XA: Trauma ADDITIONAL CLINICAL INFORMATION: Ordering Provider Reason For Exam: Trauma. Technologist Note: None. Additional: None. CONTRAST: IOPAMIDOL 76 % IV SOLN:100 mL EXAMINATION: 1.Computed tomography (CT) of the head without contrast 2.CT of the maxillofacial bones, orbits, and paranasal sinuses without contrast 3.CT of the cervical spine without contrast 4.CT of the thoracic spine without contrast 5.CT of the lumbar spine without contrast 6.CT angiography of the neck with contrast TECHNIQUE: CT of the head, cervical spine, and maxillofacial bones,orbits, and paranasal sinuses was performed without contrast according tostandard protocol. Reformatted axial, sagittal, and coronal images of thethoracic and lumbar spine were obtained by the technologist from a concurrently performed body CT and sent to the workstation for review. CT dosereduction technique was used, including Automated Exposure Control. CT angiographyof the neck was obtained after the uneventful administration of 100 mLIsovue 370 intravenous contrast. Three dimensional postprocessing was performedby the technologist and sent to the workstation for review. Stenosis measurements are based on NASCET criteria. CT dose reduction techniquewas used, including Automated Exposure Control. COMPARISON: No prior study is available for comparison at the time ofthis dictation. FINDINGS: Head: No acute intra- or extra-axial fluid collections are identified. The ventricles are of normal size, shape, and morphology. The basilarcisterns are patent. No mass effect or midline shift is seen. The camara-whitematter differentiation is normal. Effacement of the sulci is likely a normal variant. The visualized portions of the orbits, paranasal sinuses, and mastoids appear normal. No acute fracture is identified. Left frontalscalp soft tissue swelling and overlaying lacerations with the skin defect and the soft tissue gas. No underlying fracture. Facial bones: The orbits including the globes, optic nerves, retrobulbar fat and extraocular muscles appear normal. There is mild paranasal sinusdisease.. Periodontal disease is present. Artifacts from the dental amalgam is limiting evaluation of the oral cavity. The hard palate, mandible, and temporomandibular joints appear otherwise grossly unremarkable. Chronic deviation of the nasal bones to the left. No acute facial bone fractures are identified. The mastoid air cells are clear. Rightward deviation ofthe nasal septum. No soft tissue abnormality is identified. Cervical spine: Postsurgical changes of anterior cervical discectomy and fusion at C7-T1 with intact appearing hardware. Mild levocurvature of the cervical spine. The alignment is otherwise grossly unremarkable. Vertebral bodies are normal in height without evidence of acute fracture. Other than middle atlantoaxial joint osteoarthritis, the craniocervical junction appears normal. There is advanced degenerative disc disease. No central canal stenosis is seen. There are varying degrees of advanced facet osteoarthritis. There are varying degrees of advanced uncovertebral joint osteoarthritis with the same degree of neural foraminal stenosis at these levels. No soft tissue abnormality is identified. Angiographic findings: The visible aortic arch appears normal. The configuration of the brachiocephalic vessels is typical. The innominate artery and both subclavian arteries appear normal. The right common and internal carotid arteries as well as the right carotid bifurcation appear normal. Theleft common and internal carotid arteries as well as the left carotid bifurcation appear normal. The cervical vertebral arteries appearnormal. No evidence of large arterial injury is identified. There is a 2.9 x 1.3 cm hypodense nodule in the left thyroid lobe. Thoracic spine: Mild dextro curvature of the thoracic spine. The alignment is normal. Vertebral bodies are normal in height without evidence of acutefracture. There is mild degenerative disc disease. No central canal stenosis isseen. There is mild facet osteoarthritis at multiple levels. No neuralforaminal stenosis is seen. There are atherosclerotic calcifications of thecoronary arteries. There is subsegmental atelectasis in the dependent portions of the lung bases. Lumbar spine: Straightening of the normal lumbar lordosis. Shallow S-shaped curvatureof the thoracolumbar spine. The alignment is otherwise maintained.Vertebral bodies are normal in height without evidence of acute fracture. There is advanced degenerative disc disease. Mild multilevel central canalstenosis is seen. There is advanced facet osteoarthritis at multiple levels,worst at L4-L5 and L5-S1, with decreased disc space height, vacuum disc phenomenon, and endplate sclerosis. There are varying degrees of neural foraminal stenosis at multiple levels. There is atherosclerotic calcification of the abdominal aorta and its branch vessels. Brain injury guidelines: Skull fracture: No Subdural hematoma: No subdural hematoma. Epidural hematoma: No epidural hematoma. Intraparenchymal hemorrhage: No intraparenchymal hemorrhage. Subarachnoid hemorrhage: No subarachnoid hemorrhage. Intraventricular hemorrhage: No. Midline shift: No. IMPRESSION: 1.No acute intracranial hemorrhage, midline shift, or significant mass effect. 2.No acute facial bone fractures identified. 3.No evidence of acute fracture in the cervical, thoracic, or lumbarspine. 4.No evidence of large arterial injury identified in the neck. 5.2.9 cm left thyroid lobe nodule, recommend correlation with dedicated thyroid ultrasound. 6.Please refer to the concurrent, dedicated body report for findings inthe chest, abdomen, and pelvis. > Dictated by Mariaa Weems MD, (residential appraiser) 05/07/2025 5:37 PM. > Dictated by Senior Audit Manager I, Jorge Noe MD have personally reviewed and interpretedthis examination/study. > Interpreting Provider: Jorge Noe MD on 05/07/2025 9:[address] MD [address] ORDERABLES Final Resu lt * XR PELVIS 1 OR 2VW (05/07/2025 4:52 PM CDT) Anatomical Region Laterality Modality Pelvis Digital Radiogra phy 05/07/2025 4:57 PM CDT Impressions 05/08/2025 1:11 AM CDT IMPRESSION: No fracture or dislocation. > Dictated by Mariaa Weems MD, (residential appraiser). > Dictated by Senior Audit Manager I, Emeka Queen MD have personally reviewed and interpreted this examination/study. > Interpreting Provider: Emeka Queen MD on 05/08/2025 1:11 AM Narrative 05/08/2025 1:11 AM CDT PROCEDURE: XR PELVIS 1 OR 2VW, DATE/TIME OF EXAM: 05/07/2025 4:52 PM, LOCATION [facility] INDICATION: T14.90XA: Trauma ADDITIONAL CLINICAL INFORMATION: Ordering Provider Reason For Exam: Technologist Note: Additional: COMPARISON: Pelvis radiograph 03/17/2016 TECHNIQUE: AP view of the pelvis. FINDINGS: No acute fracture is identified. The femoral heads are well-seated in their respective acetabulum. Joint spaces are preserved. Pubic symphysis is intact. The osseous architecture and density are normal. The SI joints are intact. Procedure Note Emeka Queen MD - 05/08/2025 PROCEDURE: XR PELVIS 1 OR 2VW, DATE/TIME OF EXAM: 05/07/2025 4:52 PM, LOCATION [facility] INDICATION: T14.90XA: Trauma ADDITIONAL CLINICAL INFORMATION: Ordering Provider Reason For Exam: Technologist Note: Additional: COMPARISON: Pelvis radiograph 03/17/2016 TECHNIQUE: AP view of the pelvis. FINDINGS: No acute fracture is identified. The femoral heads are well-seated intheir respective acetabulum. Joint spaces are preserved. Pubic symphysis is intact. The osseous architecture and density are normal. The SI jointsare intact. IMPRESSION: No fracture or dislocation. > Dictated by Mariaa Weems MD, (residential appraiser). > Dictated by Senior Audit Manager I, Emeka Queen MD have personally reviewed and interpreted this examination/study. > Interpreting Provider: Emeka Queen MD on 05/08/2025 1:11 AM us Matt Man MD DIAGNOSTIC IMAGING ORDERAB LES Final Result * XR Forearm Left 2Vw or More (05/07/2025 4:52 PM CDT) Anatomical Region Laterality Modality Upper Extremity Digital Radiogra phy 05/07/2025 4:53 PM CDT Impressions 05/08/2025 1:10 AM CDT IMPRESSION: No acute radial or ulnar fracture identified. Report dictated by Mariaa Weems MD, (residential appraiser). > Dictated by Senior Audit Manager I, Emeka Queen MD have personally reviewed and interpreted this examination/study. > Interpreting Provider: Emeka Queen MD on 05/08/2025 1:10 AM Narrative 05/08/2025 1:10 AM CDT PROCEDURE: XR FOREARM LEFT 2VW OR MORE, DATE/TIME OF EXAM: 05/07/2025 4:52 PM, LOCATION [facility] INDICATION: T14.90XA: Trauma ADDITIONAL CLINICAL INFORMATION: Ordering Provider Reason For Exam: Technologist Note: Additional: COMPARISON: None. FINDINGS: The radius and ulna are intact without evidence of acute fracture. Bone density and texture are normal. No soft tissue swelling is present. Procedure Note Emeka Queen MD - 05/08/2025 PROCEDURE: XR FOREARM LEFT 2VW OR MORE, DATE/TIME OF EXAM: 54:52 PM, LOCATION [facility] INDICATION: T14.90XA: Trauma ADDITIONAL CLINICAL INFORMATION: Ordering Provider Reason For Exam: Technologist Note: Additional: COMPARISON: None. FINDINGS: The radius and ulna are intact without evidence of acute fracture. Bone density and texture are normal. No soft tissue swelling is present. IMPRESSION: No acute radial or ulnar fracture identified. Report dictated by Mariaa Weems MD, (residential appraiser). > Dictated by Senior Audit Manager I, Emeka Queen MD have personally reviewed and interpreted this examination/study. > Interpreting Provider: Emeka Queen MD on 05/08/2025 1:10 AM Matt Man MD DIAGNOSTIC IMAGING ORDERAB LES Final Result * XR CHEST 1VW PORTABLE (05/07/2025 4:52 PM CDT) Anatomical Region Laterality Modality Chest Digital Radiogra phy 05/07/2025 4:58 PM CDT Narrative 05/08/2025 1:11 AM CDT PROCEDURE: XR CHEST 1VW PORTABLE, DATE/TIME OF EXAM: 05/07/2025 4:52 PM, LOCATION [facility] INDICATION: T14.90XA: Trauma ADDITIONAL CLINICAL INFORMATION: Ordering Provider Reason For Exam: Technologist Note: Additional: COMPARISON: None. TECHNIQUE: Frontal radiograph of the chest. FINDINGS/IMPRESSION: Cervical spinal fusion hardware is visualized. Cardiomegaly. Mediastinal silhouette appears normal. No pleural effusion or pneumothorax. No focal consolidation. Report dictated by Mariaa Weems MD, (Senior Audit Manager). > Dictated by Senior Audit Manager I, Emeka Queen MD have personally reviewed and interpreted this examination/study. > Interpreting Provider: Emeka Queen MD on 05/08/2025 1:11 AM Procedure Note Emeka Queen MD - 05/08/2025 PROCEDURE: XR CHEST 1VW PORTABLE, DATE/TIME OF EXAM: 05/07/2025 4:52 PM, LOCATION [facility] INDICATION: T14.90XA: Trauma ADDITIONAL CLINICAL INFORMATION: Ordering Provider Reason For Exam: Technologist Note: Additional: COMPARISON: None. TECHNIQUE: Frontal radiograph of the chest. FINDINGS/IMPRESSION: Cervical spinal fusion hardware is visualized. Cardiomegaly. Mediastinal silhouette appears normal. No pleural effusionor pneumothorax. No focal consolidation. Report dictated by Mariaa Weems MD, (Senior Audit Manager). > Dictated by Senior Audit Manager I, Emeka Queen MD have personally reviewed and interpreted this examination/study. > Interpreting Provider: Emeka Queen MD on 05/08/2025 1:11 AM Matt Man MD DIAGNOSTIC IMAGING ORDERAB LES Final Result * TYPE + SCREEN PANEL (05/07/2025 4:46 PM CDT) Antibody Screen NEG 5:45 PM CDT [facility] ABO Rh O POS 05/07/2025 5:45 PM CDT [facility] Blood Bank BLOOD SPECIMEN / Unknown Venipuncture / Unknown 05/07/2025 4:46 PM CDT 05/07/2025 4:50 PM CDT Matt Man MD LAB - BLOOD BANK ORDERABLE S Final Result Performing Organization Address [facility]/ZIP Co de Phone Number [facility] [address] [place] [address], [facility] [phone] * PTT (05/07/2025 4:46 PM CDT) APTT 37.1 23.0 - 38.4 Seconds 05/07/2025 5:22 PM CDT [facility] Comment:Suggested therapeuti c range for full dose I.V. unfractionated heparin therapy for venous thromboembolism is 71 to 109 seconds. Blood BLOOD SPECIMEN / Unknown Venipuncture / Unknown 05/07/2025 4:46 PM CDT 05/07/2025 4:50 PM CDT Matt Man MD LAB - COAGULATION ORDERABL ES Final Result [facility] [address] [place] [address], [place] [phone] * PT-INR (05/07/2025 4:46 PM CDT) PT 14.0 12.1 - 14.8 Seconds 05/07/2025 5:22 PM CDT [facility] INR 1.1 See Comment 05/07/2025 5:[address] [facility] Comment:The suggested therap eutic range for standard coumadin (warfarin) therapy is an INR of 2.0-3.0. For high-risk patients (Mechanical Mitral Valve Prosthesis, etc.), the suggested prophylactic therapeutic range is an INR of 2.5-3.5. Blood BLOOD SPECIMEN / Unknown Venipuncture / Unknown 05/07/2025 4:46 PM CDT 05/07/2025 4:50 PM CDT us Matt Man MD LAB - COAGULATION ORDERABL ES Final Result [facility] [address] [place] [address], [facility] [phone] * (ABNORMAL) CBC W AUTO DIFFERENTIAL (05/07/2025 4:46 PM CDT) WBC 10.8(H) 4.0 - 10.7 x10E9/L 05/07/2025 4:[address] [facility] RBC Count 4.11(L) 4.30 - 5.80 x10E12/L 05/07/2025 4:[address] [facility] Hemoglobin 12.8(L) 13.3 - 17.5 g/dL 05/07/2025 4:[address] [facility] Hematocrit 36.9(L) 38.7 - 51.1 % 05/07/2025 4:[address] [facility] MCV 89.8 80.0 - 98.0 fL 05/07/2025 4:[address] [facility] MCH 31.1 26.7 - 33.6 pg 05/07/2025 4:[address] [facility] MCHC 34.7 31.7 - 36.3 g/dL 05/07/2025 4:[address] [facility] RDW-CV 12.9 11.3 - 14.8 % 05/07/2025 4:[address] [facility] Platelet Count 258 150 - 420 x10E9/L 05/07/2025 4:[address] [facility] MPV 10.2 7.8 - 11.4 fL 05/07/2025 4:54 PM CDT [facility] Neutrophil % 58.4 41.0 - 74.0 % 05/07/2025 4:54 PM CDT [facility] Lymphocyte % 29.4 17.0 - 47.0 % 05/07/2025 4:54 PM CDT [facility] Monocyte % 7.7 3.0 - 11.0 % 05/07/2025 4:54 PM CDT [facility] Eosinophil % 3.2 0.0 - 7.0 % 05/07/2025 4:54 PM CDT [facility] Basophil % 0.7 0.0 - 1.6 % 05/07/2025 4:54 PM CDT [facility] Immature Granulocytes % 0.6 0.0 - 1.0 % 05/07/2025 4:54 PM CDT [facility] Neutrophil Absolute 6.27 1.60 - 7.50 x10E9/L 05/07/2025 4:54 PM CDT [facility] Lymphocyte Absolute 3.17 1.00 - 4.40 x10E9/L 05/07/2025 4:54 PM CDT [facility] Monocyte Absolute 0.83 0.15 - 1.00 x10E9/L 05/07/2025 4:54 PM CDT [facility] Eosinophil Absolute 0.35 0.00 - 0.60 x10E9/L 05/07/2025 4:54 PM CDT [facility] Basophil Absolute 0.08 0.00 - 0.13 x10E9/L 05/07/2025 4:54 PM T [facility] Blood BLOOD SPECIMEN / Unknown Venipuncture / Unknown 05/07/2025 4:46 PM CDT 05/07/2025 4:50 PM CDT us Matt Man MD LAB - HEMATOLOGY ORDERABLE S Final Result [facility] [address] [place] [address], [facility] [phone] * (ABNORMAL) COMPREHENSIVE METABOLIC PANEL (05/07/2025 4:46 PM CDT) BUN 10 7 - 26 mg/dL 05/07/2025 5:[address] [facility] Creatinine 0.89 0.71 - 1.16 mg/dL 05/07/2025 5:[address] [facility] Sodium 135(L) 136 - 145 mmol/L 05/07/2025 5:[address] [facility] Potassium 3.9 3.5 - 4.5 mmol/L 05/07/2025 5:[address] [facility] Chloride 106 98 - 107 mmol/L 05/07/2025 5:[address] [facility] CO2 21(L) 22 - 29 mmol/L 05/07/2025 5:[address] [facility] Glucose 99 70 - 99 mg/dL 05/07/2025 5:[address] [facility] Calcium 8.5 8.4 - 10.2 mg/dL 05/07/2025 5:[address] [facility] Protein Total 6.8 6.0 - 8.3 g/dL 05/07/2025 5:[address] [facility] Albumin 3.9 3.4 - 5.0 g/dL 05/07/2025 5:[address] [facility] Bilirubin Total 0.2 0.2 - 1.2 mg/dL 05/07/2025 5:[address] [facility] Alkaline Phosphatase 69 40 - 150 U/L 05/07/2025 5:[address] [facility] ALT 11 5 - 55 U/L 05/07/2025 5:[address] [facility] AST 13 5 - 34 U/L 05/07/2025 5:[address] [facility] Anion Gap 8 6 - 16 05/07/2025 5:[address] [facility] BUN/Creatinine Ratio 11 7 - 23 05/07/2025 5:[address] [facility] Osmolality Calculated 279 275 - 295 mOsm/kg 05/07/2025 5:[address] [facility] Albumin/Globulin Ratio 1.3 1.1 - 2.3 05/07/2025 5:[address] [facility] eGFR by CKD-EPI >90 >=90 mL/min/1.7 3 m2 05/07/2025 5:18 PM CDT [facility] Comment:Estimated Glomerular Filtration Rate (eGFR) calculated using the CKD-EPI Creatinine Equation (2020), per the National Kidney Foundation and [place] [employer]ph[employer] recommendations. Blood BLOOD SPECIMEN / Unknown Venipuncture / Unknown 05/07/2025 4:46 PM CDT 05/07/2025 4:50 PM CDT us Matt Man MD LAB - CHEMISTRY ORDERABLES Final Result [facility] [id number] [place] [address], [place] [phone] * (ABNORMAL) ALCOHOL ETHYL BLOOD (05/07/2025 4:46 PM CDT) Ethanol (mg/dL) 99(H) <10 mg/dL 5:18 PM CDT [facility] Ethanol Calculated (g/dL) 0.099(H) <=0.010 g/dL 05/07/2025 5:18 PM CDT [facility] Blood BLOOD SPECIMEN / Unknown Venipuncture / Unknown 05/07/2025 4:46 PM CDT 05/07/2025 4:50 PM CDT Narrative [facility] - 05/07/2025 5:18 PM CDT Ethanol Interp <10: None Detected. Depression of MELT HOUSE CENTRIFUGAL OPERATOR: >100 mg/dl Potentially Critical: >250 mg/dl Potentially Fatal >400 mg/dl Ethanol in the patient's blood will contribute to the osmolar gap. Ethanol's contribution to the osmolar gap can be estimated by dividing the concentration of ethanol in mg/dL by 4.6. This test is for clinical use only and does not equal a CARIDAD for legal purposes. us Matt Man MD LAB - CHEMISTRY ORDERABLES Final Result Performing Organization Address City/[facility]/ZIP Co de Phone Number [facility] [id number] [place] [address], [place] [phone] from Last 3 Months Insurance [facility] [employer] GENERIC Advance Directives * Full Code (Latest Code Status on File) Date Activated Date Inactivated Comments 05/08/2025 1:44 AM 05/09/2025 6:28 PM Care Teams Art Appraiser Relationship Specialty Start Date End Date Car Tiwari MD PCP - General 06/22/18
--- OUTSIDE RECORDS SUMMARY | 2025-05-18 11:55 | XMS_ITS | Clinical Summary ---
Author Organization [facility] Address [facility] [place] [address] Care Team Providers Care Bingo Floater Name Role Phone Non-Staff, Provider Primary Care [...] Comments Blood Pressure 166/87 08/07/2023 7:22 AM CHARGE ACCOUNT IDENTIFICATION CLERK Pulse 63 08/07/2023 7:22 AM CHARGE ACCOUNT IDENTIFICATION CLERK Temperature 36.8 C (98.2 F) 08/07/2023 7:22 AM CHARGE ACCOUNT IDENTIFICATION CLERK Respiratory Rate 18 08/07/2023 7:22 AM CHARGE ACCOUNT IDENTIFICATION CLERK Oxygen Saturation 100% 08/07/2023 7:22 AM CHARGE ACCOUNT IDENTIFICATION CLERK Inhaled Oxygen Concentration - - Weight 92.1 kg (203 lb) 08/07/2023 7:22 AM CHARGE ACCOUNT IDENTIFICATION CLERK Height 182.9 cm (6') 08/07/2023 7:22 AM CHARGE ACCOUNT IDENTIFICATION CLERK Body Mass Index 27.53 08/07/2023 7:22 AM CHARGE ACCOUNT IDENTIFICATION CLERK Plan of Treatment Health Maintenance Due Date Last Done Comments Colorectal Cancer Screening Colonoscopy (10 Years) 1968 Annual Physical 01/04/1971 Hepatitis C 01/04/1986 DTaP, Tdap and Td Vaccines ( 1 - Tdap) 01/04/1987 Hepatitis B Vaccines (1 of 3 - 19+ 3-dose series) 01/04/1987 Pneumococcal Vaccine: 50+ Ye ars (1 of 1 - PCV) 01/04/2018 Zoster Vaccines (1 of 2) 01/04/2018 COVID-19 Vaccine (1 - 2023-2 5 season) 2025 Meningococcal B Vaccine Aged Out No l onger eligible based on patient's age to complete this topic Meningococcal Vaccine Aged Out No dima rose marie eligible based on patient's age to complete this topic RSV Immunizations Under 20 Months Aged Out No longer eligible based on patient's age to complete this topic Insurance [place] OFFICE OF [facility] Care Teams Bingo Floater Relationship Specialty Start Date End Date Non-Staff, Provider PCP - General UNKNOWN PHYSICIAN SPECIALTY 07/30/23
--- NOTE | 2025-05-18 12:04 | ED.WOUNDLAC ---
HPI - Wound/Laceration General Chief Complaint: Wound/Laceration Stated Complaint: Left arm wound/infection Time Seen by Provider: 05/18/25 11:32 Source: patient Mode of arrival: ambulatory Limitations: no limitations History of Present Illness HPI narrative: this is a 55-year-old male that presents after he was in the hospital for approximately 3 days with some large lack on the scalp and hematoma to his left forearm currently there is a lack there is no drainage it is swollen warm tender to touch with no fever chills, has a brisk radial pulse on the left. Onset (ago): day(s) Location: other Extremity Location: Left: arm ( hematoma that is draining blood) Place: home Patient tetanus UTD: Yes Related Data Allergies Allergy/AdvReac Type Severity Reaction Status Date / Time shellfish derived Allergy Severe SWELLING Verified 11/13/24 19:11 shrimp Allergy Severe SWELLING Verified 11/13/24 19:11 iodine Allergy Unknown Unknown Verified 11/13/24 19:11 Contrast Media Allergy Severe SWELLING Uncoded 11/13/24 19:11 Review of Systems Review of Systems: All systems reviewed & are unremarkable except as noted in HPI and below PMFSH Past Medical History Medical History PTSD (post-traumatic stress disorder) Internal bleeding hemorrhoids Abdominal pain Rectal bleeding Hemoglobin 15.4 with iron 113 with 39% saturation and ferritin 118 on 06/12/2022. secondary to internal hemorrhoids, resolved Candidiasis of genitalia Overweight (BMI 25.0-29.9) Chronic depression GI bleeding Normal EGD and colonoscopy on 06/27/2022. Obesity (BMI 30.0-34.9) Irritable bowel syndrome with diarrhea (~12/04/21) TURNER (dyspnea on exertion) Obesity Hypertension PAF (paroxysmal atrial fibrillation) Pulmonary embolism A-fib Myocarditis due to 2019 novel coronavirus Elevated troponin Hypokalemia Chest pain COVID-19 (~06/12/21) Seasonal allergic rhinitis Chronic cough Mixed hyperlipidemia (02/01/21) Total cholesterol 202, triglycerides 142, HDL 37, LDL 138 on 06/12/2022. Microscopic hematuria (02/01/21) 1+ blood with 3- 10 RBCs and urinalysis 06/12/2022. Folic acid deficiency (02/01/21) Level low at 5.2 on Vitamin B12 deficiency anemia (02/01/21) level low at 298 with goal greater than 400 on 06/12/2022. 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 Primary hypertension Family History Family History Mother Patient's mother is , Onset Age: 69 Father Patient's father is , Onset Age: 73 Social History Social History Years smoked: 1 Smoking status: Former smoker Tobacco type: cigarettes Second hand tobacco smoke exposure: No Alcohol intake: current Drinks per week: 1 Alcohol use details: wine occasionally Substance use: current Substance use type: marijuana Current Housing: Decline to Answer Concerned About Future Housing: Decline to Answer Difficulty Paying Gas/Electric Bills: Decline to Answer Difficulty Paying for Meds: Decline to Answer Currently Unemployed: Decline to Answer Education: Decline to Answer Difficulty w/ Childcare or Family Care: Decline to Answer Living arrangements: with family Gender identity (if verbalized by the patient): Male Sexual Orientation (if Verbalized by the Patient): Straight or Heterosexual Spiritual care concerns: No Exam Const: General: healthy appearing and no acute distress Nutritional Appearance: well nourished Orientation/consciousness: patient oriented x3 Limitations: no limitations Chest: Chest palpation & inspection: normal inspection of the chest Resp: Effort & Inspection: normal respiratory effort Auscultation: clear to auscultation bilaterally Cardio: Rate: regular rate Rhythm: regular rhythm GI: GI Palp: Yes Soft to palpation Auscultation: normal bowel sounds Skin: Wounds: wounds noted Other: Swelling and warm and tender left anterior forearm with a lactate that is not draining. No fluctuance Extrem: General: normal to inspection and no clubbing, cyanosis or edema Course Course Emergency Course: patient received 1g IM ceftriaxone and will be sending antibiotics patient's local pharmacy. Vital Signs Vital signs: Vital Signs Temperature 36.7 C 05/18/25 11:36 Pulse Rate 86 05/18/25 11:36 Respiratory Rate 18 05/18/25 11:36 Blood Pressure 177/99 H 05/18/25 11:36 Pulse Oximetry 98 05/18/25 11:36 Temperature 36.7 C 05/18/25 11:36 Pulse Rate 86 05/18/25 11:36 Respiratory Rate 18 05/18/25 11:36 Blood Pressure 177/99 H 05/18/25 11:36 Pulse Oximetry 98 05/18/25 11:36 Critical Care Time Critical Care Time Critical Care Time: No Discharge Plan Discharge Clinical Impression: Hematoma Cellulitis Qualifiers: Site of cellulitis: extremity Site of cellulitis of extremity: upper extremity Laterality: left Qualified Code(s): L03.114 - Cellulitis of left upper limb Patient Disposition: Home Condition: Stable Instructions: Antibiotic Form, Cellulitis (ED) Additional Instructions: advised patient to take medication as prescribed and to follow with primary within next 3 to 5 days for further evaluation and treatment. Patient Language: Occitan Prescriptions: New amoxicillin-pot clavulanate [Augmentin] 500-125 mg tablet 1 tablet PO TID Qty: 30 0RF No Action clotrimazole-betamethasone 1-0.05 % cream 1 applic TOPICAL BID 14 Days Qty: 45 1RF metoprolol succinate 100 mg tablet extended release 24 hr 100 mg PO DAILY Qty: 90 3RF escitalopram oxalate [Lexapro] 20 mg tablet 20 mg PO DAILY Qty: 90 3RF buspirone 15 mg tablet 15 mg PO TID Qty: 270 3RF irbesartan 300 mg tablet 300 mg PO DAILY Qty: 90 3RF hydrochlorothiazide 12.5 mg tablet 12.5 mg PO DAILY Qty: 90 3RF Follow-up/Referrals: [facility] [Primary Care Provider, Medical] Time of Disposition: 12:09
[2025-05-18] MEDS: cefTRIAXone 1 GM, LIDOCAINE 1% LOCAL INJ 2.1 ML IM (12:16)
--- OUTSIDE RECORDS SUMMARY | 2025-05-18 12:19 | XMS_ITS | Encounter Summary ---
Author Organization [facility] Address [address] [place] [address] Care Team Providers Care Photographer Model Name Role Phone Unavailable Primary Care Provider [...]
--- OUTSIDE RECORDS SUMMARY | 2025-05-18 12:19 | XMS_ITS | Clinical Summary ---
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 Name Role Phone Unavailable Primary Care Provider [...] Data STL ABSTRACTION Provider, Abstract 02/16/2025 Abstract [facility] [address] [place] [address] Maged Nayak MD 02/16/2025 Chart Note [facility] [address] [place] [address] Maged Nayak MD Preop Exam 02/15/2025 External [...] Screening 11/16/2031 Medical Devices Implanted Type [facility] Wellness Coordinator Device Identifier Shelf Expiration Date Model / Serial / Lot Clip Endo Resolution 360 235cm [id number] - [id number] Implanted:Qty: 1 on 11/15/2024 by Lopez Hutton MD at [facility] Clip N/A: Sigmoid Colon [employer] [id number] 06/23/2027 [id number] / / [id number] Clip Endo Resolution 360 235cm [id number] - [id number] Implanted:Qty: 1 on 11/15/2024 by Lopez Hutton MD at [facility] Clip N/A: Sigmoid Colon [employer] [id number] 06/23/2027 [id number] / / [id number] Stent Synergy Xd 3.5x12mm Evrlms Elut [id number] - [id number] Implanted:Qty: 1 on 11/16/2024 by Maged Nayak MD at [facility] Stent Left: Coronary [employer] [id number] 05/31/2026 [id number] / / [id number] Stent Synergy Xd 3.0x12mm Evrlms Elut [id number] - [id number] Implanted:Qty: 1 on 11/16/2024 by Maged Nayak MD at [facility] Stent Left: Coronary [employer] [id number] 07/20/2026 [id number] / / [id number] Procedures Procedure Name Priority Date/Time Associated Diagnosis Comments COLONOSCOPY REPORT 11/15/2024 9: 08 AM CDT HEMOGLOBIN A1C Routine 11/15/2024 2:23 AM CDT from Last 3 Months or Most Recently Relevant to Health Maintenance Results * COLONOSCOPY REPORT (11/15/2024 9:08 AM CDT) Narrative Procedure Note Lopez Hutton MD - 11/15/2024 9:08 AM CDT [facility] Endoscopy Patient Name: Johnathan Garza Procedure [...] of Addenda: [address]; [place] [address] Lopez Hutton MD GI PROCEDURE ORDERABLES Paige zhang Result * (ABNORMAL) HEMOGLOBIN A1C (11/15/2024 2:23 AM CDT) HEMOGLOBIN A1C 5.8(H) <5.7 % 11/15/2024 3:16 AM CDT [facility] EST. AVG GLUCOSE, A1C 120 mg/dL 11/15/2024 3:16 AM CDT [facility] [employer] [facility] Blood Venipuncture / Unknown 11/15/2024 2:23 AM CDT 11/15/2024 2:30 AM CDT [facility]ORAT[facility] - 11/15/2024 3:16 AM CDT HGB A1C INTERPRETATION NORMAL: <5.7% PRE-DIABETES: 5.7 - 6.4% DIABETES: 6.5% OR GREATER Allyssa Velazquez [employer] CHEMISTRY ORDERABLES Final Resu lt [facility] G[facility]# [id number] [address] [place] [id number] from Last 3 Months or Most Recently Relevant to Health Maintenance Insurance [facility] [employer] * Guarantor: Johnathan Garza Account Type Relation to Patient Date of Phone Billing Address Personal/Family Self 1970 [address] (Home) [address] [place] [address] Advance Directives For more information, please contact: [phone] * Full Code (Latest Code Status on File) Date Activated Date Inactivated Comments 11/14/2024 2:51 AM 11/17/2024 12:45 PM
--- OUTSIDE RECORDS SUMMARY | 2025-05-18 12:19 | XMS_ITS | Clinical Summary ---
Author Organization [facility] Address [address] 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 This disclosure is being madepursuant to the Care Everywhere program and may not contain all information available regarding this patient. Last updated 18.[facility] Allergies No known active allergies Medications * [...] - 05/09/2025 5:28 PM CDT Hospital Encounter [facility] Early Admission Unit [address] [place] [address] Sav Groves MD Garcia, Andrew M, MD [...] and heating? Not hard at all 05/08/2025 [facility] Occupat ional [facility] - Occupational Stress [...] any time in the past 12 m [facility], were you homeless or living in a halfway (including now)? 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 Gender Identity Not on file Sexual Orientation [...] this topic Medical Devices Implanted Type Area Spar Cap Beveler Device Identifier Shelf Expiration Date Model / [...] 4.0 - 10.7 x10E9/L 05/09/2025 4:42 AM [facility] RBC Count 4.09(L) 4.30 - 5.80 x10E12/L 05/09/2025 4:42 AM [facility] Hemoglobin 12.8(L) 13.3 - 17.5 g/dL 05/09/2025 4:42 AM [facility] Hematocrit 37.0(L) 38.7 - 51.1 % 05/09/2025 4:42 AM [facility] MCV 90.5 80.0 - 98.0 fL 05/09/2025 4:42 AM [facility] MCH 31.3 26.7 - 33.6 pg 05/09/2025 4:42 AM [facility] MCHC 34.6 31.7 - 36.3 g/dL 05/09/2025 4:42 AM [facility] RDW-CV 13.1 11.3 - 14.8 % 05/09/2025 4:42 AM [facility] Platelet Count 236 150 - 420 x10E9/L 05/09/2025 4:42 AM [facility] MPV 10.6 7.8 - 11.4 fL 05/09/2025 4:42 AM [facility] Blood BLOOD SPECIMEN / Unknown Lab Venipuncture / Unknown 05/09/2025 4:00 AM CDT 05/09/2025 4:28 AM CDT us Davide Rodriguez MD LAB - HEMATOLOGY ORDERABLES F inal Result [facility] [address] [place] [phone], [facility] [phone] * (ABNORMAL) BASIC METABOLIC PANEL (CALCIUM TOTAL) (05/09/2025 4:00 AM [facility]) Only the most recent of2 resultswithin the time period is included. BUN 8 7 - 26 mg/dL 05/09/2025 5:01 AM [facility] Creatinine 0.73 0.71 - 1.16 mg/dL 05/09/2025 5:01 AM [facility] Sodium 139 136 - 145 mmol/L 05/09/2025 5:01 AM [facility] Potassium 3.7 3.5 - 4.5 mmol/L 05/09/2025 5:01 AM [facility] Chloride 111(H) 98 - 107 mmol/L 05/09/2025 5:01 AM [facility] CO2 26 22 - 29 mmol/L 05/09/2025 5:01 AM [facility] Glucose 105(H) 70 - 99 mg/dL 05/09/2025 5:01 AM [facility] Calcium 8.8 8.4 - 10.2 mg/dL 05/09/2025 5:01 AM [facility] Anion Gap 2(L) 6 - 16 05/09/2025 5:01 AM [facility] BUN/Creatinine Ratio 11 7 - 23 05/09/2025 5:01 AM [facility] Osmolality Calculated 287 275 - 295 mOsm/kg 05/09/2025 5:01 AM [facility] eGFR by CKD-EPI >90 >=90 mL/min/1.7 3 m2 05/09/2025 5:01 AM [facility] Comment:Estimated Glomerular Filtration Rate (eGFR) calculated using the CKD-EPI Creatinine Equation (2020), per the National Kidney Foundation and [place] [employer] Neph[employer] recommendations. Blood BLOOD SPECIMEN / Unknown Lab Venipuncture / Unknown 05/09/2025 4:00 AM CDT 05/09/2025 4:28 AM [facility] us Davide Rodriguez MD LAB - CHEMISTRY ORDERABLES Fi nal Result [address] [address], [facility] [phone] * PHOSPHORUS BLOOD (05/09/2025 4:00 AM CDT) Only the most recent of2 resultswithin the time period is included. Phosphorus 3.8 2.8 - 5.1 mg/dL 05/09/2025 5:01 AM CDT [facility] Blood BLOOD SPECIMEN / Unknown Lab Venipuncture / Unknown 05/09/2025 4:00 AM CDT 05/09/2025 4:28 AM CDT Davide Rodriguez MD LAB - CHEMISTRY ORDERABLES Fi nal Result [address] [address], [facility] [phone] * MAGNESIUM BLOOD (05/09/2025 4:00 AM CDT) Only the most recent of2 resultswithin the time period is included. Magnesium 2.1 1.6 - 2.6 mg/dL 05/09/2025 5:01 AM CDT [facility] Blood BLOOD SPECIMEN / Unknown Lab Venipuncture / Unknown 05/09/2025 4:00 AM CDT 05/09/2025 4:28 AM CDT Davide Rodriguez MD LAB - CHEMISTRY ORDERABLES Fi nal Result [address] [address], [facility] [phone] * (ABNORMAL) URINALYSIS W/MICROSCOPIC NO CULTURE (05/08/2025 2:34 AM CDT) Color UA Colorless(A ) Yellow, Straw 05/08/2025 2:51 AM CDT [facility] Clarity UA Clear Clear 05/08/2025 2:51 AM CDT [facility] Glucose UA Normal Normal 05/08/2025 2:51 AM CDT [facility] Bilirubin UA Negative Negative 05/08/2025 2:51 AM [facility] Ketone UA Trace(A) Negative 05/08/2025 2:51 AM [facility] Specific Howells UA 1.019 1.005 - 1.030 05/08/2025 2:51 AM [facility] Blood UA Trace(A) Negative 05/08/2025 2:51 AM [facility] pH UA 5.5 5.0 - 8.0 05/08/2025 2:51 AM [facility] Protein UA Negative Negative 05/08/2025 2:51 AM [facility] Urobilinogen UA Normal Normal mg/dL 05/08/2025 2:51 AM [facility] Nitrite UA Negative Negative 05/08/2025 2:51 AM [facility] Leukocyte Esterase UA Negative Negative 05/08/2025 2:51 AM [facility] RBC UA 3-5 0 - 5 # /hpf 05/08/2025 2:51 AM [facility] WBC UA 0-5 0 - 5 # /hpf 05/08/2025 2:51 AM [facility] Bacteria UA None Seen None Seen 05/08/2025 2:51 AM [facility] Squamous Epithelial Cells None Seen 0 - 5 /hpf 05/08/2025 2:51 AM [facility] Urine URINE SPECIMEN OBTAINED BY CLEAN CATCH PROCEDURE / Unknown Collection / Unknown 05/08/2025 2:34 AM CDT 05/08/2025 2:42 AM CDT us Matt Man MD LAB - URINALYSIS ORDERABLE S Final Result [facility] [address] [place] [address], [facility] [phone] * (ABNORMAL) URINE DRUG SCREEN IMMUNOASSAY (05/08/2025 2:34 AM CDT) [facility] Amphetamines Screen Urine Negative Negative : < 1000 ng/mL 05/08/2025 3:23 AM [facility] Barbiturates Screen Urine Negative Negative : < 200 ng/mL 05/08/2025 3:23 AM [facility] Benzodiazepine Screen Urine Negative Negative : < 200 ng/mL 05/08/2025 3:23 AM [facility] Opiates Urine Negative Negative : < 300 ng/mL 05/08/2025 3:23 AM [facility] Cocaine Metabolites Urine Negative Negative : < 300 ng/mL 05/08/2025 3:23 AM [facility] Phencyclidine Screen Urine Negative Negative : < 25 ng/ml 05/08/2025 3:23 AM [facility] Cannabinoids Screen Urine Positive(A) Negative : <50 ng/mL 05/08/2025 3:23 AM [facility] Comment:Positive urine canna binoids (THC) screening results should be confirmed by another generally accepted non-immunological method such as gas chromatography or mass spectrometry. Methadone Screen Urine Negative Negative : < 300 ng/mL 05/08/2025 3:23 AM [facility] Fentanyl Screen Urine Positive(A) Negative : <1.5 ng/mL 05/08/2025 3:23 AM [facility] Comment:Positive urine fenta nyl screening results should be confirmed by another generally accepted non-immunological method such as gas chromatography or mass spectrometry. Urine URINE / Unknown Collection / Unknown 05/08/2025 2:34 AM CDT 05/08/2025 2:42 AM T [facility] - 05/08/2025 3:23 AM T The Urine Toxicology Screening Panel does not screen for Propoxyphene, Meprobamate, Carisoprodol, Trazodone, nqil-nku-fqjxwvy medications and/or volatiles (Acetone, Isopropanol, Methanol or Ethylene Glycol). Ethanol, Salicylate, Acetaminophen, Tricyclic Antidepressants and several therapeutic drugs may be individually assayed in serum or plasma specimen. Toxicology testing by the [facility] is an aid to medical diagnosis and treatment of patients. No documented chain of custody was maintained. Results are intended to be used for clinical purposes only. us Matt Man MD LAB - URINE CHEMISTRY SYDNIE PEÑA Final Result [facility] [address] [phone], [facility] [phone] * BLOOD TYPE VERIFICATION (05/07/2025 7:28 PM CDT) ABO Rh O POS 05/07/2025 8:1 6 PM CDT [facility] Blood Bank BLOOD SPECIMEN / Unknown Venipuncture / Unknown 05/07/2025 7:28 PM CDT 05/07/2025 7:32 PM CDT us Matt Man MD LAB - BLOOD BANK ORDERABLE S Final Result [facility] [address] [place] [address], [facility] [phone] * CT CHEST ABDOMEN PELVIS W CONT [...] by Li Baugh MD > Dictated by Linen Supervisor I, Brendan Nathan MD have personally reviewed and interpreted this examination/study. > Interpreting Provider: Brendan Nathan MD on 05/07/2025 6:21 PM Narrative 05/07/2025 6:21 PM CDT PROCEDURE: CT CHEST ABDOMEN PELVIS W CONT, DATE/TIME OF EXAM: 05/07/2025 5:23 PM, LOCATION [facility] INDICATION: T14.90XA: Trauma ADDITIONAL CLINICAL INFORMATION: Ordering [...] DATE/TIME OF EXAM: 05/07/2025 5:23 PM, LOCATION [facility] INDICATION: T14.90XA: Trauma ADDITIONAL CLINICAL INFORMATION: Ordering [...] by Li Baugh MD > Dictated by Linen Supervisor I, Brendan Nathan MD have personally reviewed [...] by Li Baugh MD > Dictated by Linen Supervisor ICaitlyn MD have personally reviewed and interpreted this examination/study. > Interpreting Provider: Caitlyn Hamlin MD on 05/07/2025 9:55 PM Narrative 05/07/2025 9:55 PM CDT PROCEDURE: CT ANGIO UPPER EXTREMITY LEFT, DATE/TIME OF EXAM: 05/07/2025 5:23 PM, LOCATION [facility] INDICATION: T14.90XA: Trauma ADDITIONAL CLINICAL INFORMATION: Ordering [...] DATE/TIME OF EXAM: 05/07/2025 5:23 PM, LOCATION [facility] INDICATION: T14.90XA: Trauma ADDITIONAL CLINICAL INFORMATION: Ordering [...] by Li Baugh MD > Dictated by Linen Supervisor I, Caitlyn Hamlin MD have personally reviewed [...] pelvis. > Dictated by Mariaa Weems MD, (echocardiography radiology technologist) 05/07/2025 5:37 PM. > Dictated by Linen Supervisor I, Jorge Noe MD have personally reviewed and interpreted this examination/study. > Interpreting Provider: Jorge Noe MD on 05/07/2025 9:26 PM Narrative 05/07/2025 9:26 PM CDT PROCEDURE: CT HEAD WO CONTRAST, CT ANGIO NECK, CT LUMBAR SPINE WO CONTRAST, CT THORACIC SPINE WO CONTRAST, CT CERVICAL SPINE WO CONTRAST, CT FACIAL BONES WO CONTRAST, DATE/TIME OF EXAM: 05/07/2025 5:23 PM, LOCATION [facility] INDICATION: T14.90XA: Trauma ADDITIONAL CLINICAL INFORMATION: Ordering [...] DATE/TIME OF EXAM: 05/07/2025 5:23 PM, LOCATION [facility] INDICATION: T14.90XA: Trauma ADDITIONAL CLINICAL INFORMATION: Ordering [...] pelvis. > Dictated by Mariaa Weems MD, (echocardiography radiology technologist) 05/07/2025 5:37 PM. > Dictated by Linen Supervisor I, Jorge Noe MD have personally reviewed [...] pelvis. > Dictated by Mariaa Weems MD, (echocardiography radiology technologist) 05/07/2025 5:37 PM. > Dictated by Linen Supervisor I, Jorge Noe MD have personally reviewed and interpreted this examination/study. > Interpreting Provider: Jorge Noe MD on 05/07/2025 9:26 PM Narrative 05/07/2025 9:26 PM CDT PROCEDURE: CT HEAD WO CONTRAST, CT ANGIO NECK, CT LUMBAR SPINE WO CONTRAST, CT THORACIC SPINE WO CONTRAST, CT CERVICAL SPINE WO CONTRAST, CT FACIAL BONES WO CONTRAST, DATE/TIME OF EXAM: 05/07/2025 5:23 PM, LOCATION [facility] INDICATION: T14.90XA: Trauma ADDITIONAL CLINICAL INFORMATION: Ordering [...] DATE/TIME OF EXAM: 05/07/2025 5:23 PM, LOCATION [facility] INDICATION: T14.90XA: Trauma ADDITIONAL CLINICAL INFORMATION: Ordering [...] pelvis. > Dictated by Mariaa Weems MD, (echocardiography radiology technologist) 05/07/2025 5:37 PM. > Dictated by Linen Supervisor Mariam, Jorge Noe MD have personally reviewed [...] pelvis. > Dictated by Mariaa Weems MD, (echocardiography radiology technologist) 05/07/2025 5:37 PM. > Dictated by Linen Supervisor Jorge Becerra MD have personally reviewed and interpreted this examination/study. > Interpreting Provider: Jorge Noe MD on 05/07/2025 9:26 PM Narrative 05/07/2025 9:26 PM CDT PROCEDURE: CT HEAD WO CONTRAST, CT ANGIO NECK, CT LUMBAR SPINE WO CONTRAST, CT THORACIC SPINE WO CONTRAST, CT CERVICAL SPINE WO CONTRAST, CT FACIAL BONES WO CONTRAST, DATE/TIME OF EXAM: 05/07/2025 5:23 PM, LOCATION [facility] INDICATION: T14.90XA: Trauma ADDITIONAL CLINICAL INFORMATION: Ordering [...] DATE/TIME OF EXAM: 05/07/2025 5:23 PM, LOCATION [facility] INDICATION: T14.90XA: Trauma ADDITIONAL CLINICAL INFORMATION: Ordering [...] pelvis. > Dictated by Mariaa Weems MD, (echocardiography radiology technologist) 05/07/2025 5:37 PM. > Dictated by Linen Supervisor Jorge Becerra MD have personally reviewed and [...] pelvis. > Dictated by Mariaa Weems MD, (echocardiography radiology technologist) 05/07/2025 5:37 PM. > Dictated by Linen Supervisor Jorge Becerra MD have personally reviewed and interpreted this examination/study. > Interpreting Provider: Jorge Noe MD on 05/07/2025 9:26 PM Narrative 05/07/2025 9:26 PM CDT PROCEDURE: CT HEAD WO CONTRAST, CT ANGIO NECK, CT LUMBAR SPINE WO CONTRAST, CT THORACIC SPINE WO CONTRAST, CT CERVICAL SPINE WO CONTRAST, CT FACIAL BONES WO CONTRAST, DATE/TIME OF EXAM: 05/07/2025 5:23 PM, LOCATION [facility] INDICATION: T14.90XA: Trauma ADDITIONAL CLINICAL INFORMATION: Ordering [...] DATE/TIME OF EXAM: 05/07/2025 5:23 PM, LOCATION [facility] INDICATION: T14.90XA: Trauma ADDITIONAL CLINICAL INFORMATION: Ordering [...] pelvis. > Dictated by Mariaa Weems MD, (echocardiography radiology technologist) 05/07/2025 5:37 PM. > Dictated by Linen Supervisor I, Jorge Noe MD have personally reviewed [...] pelvis. > Dictated by Mariaa Weems MD, (echocardiography radiology technologist) 05/07/2025 5:37 PM. > Dictated by Linen Supervisor I, Jorge Noe MD have personally reviewed and interpreted this examination/study. > Interpreting Provider: Jorge Noe MD on 05/07/2025 9:26 PM Narrative 05/07/2025 9:26 PM CDT PROCEDURE: CT HEAD WO CONTRAST, CT ANGIO NECK, CT LUMBAR SPINE WO CONTRAST, CT THORACIC SPINE WO CONTRAST, CT CERVICAL SPINE WO CONTRAST, CT FACIAL BONES WO CONTRAST, DATE/TIME OF EXAM: 05/07/2025 5:23 PM, LOCATION [facility] INDICATION: T14.90XA: Trauma ADDITIONAL CLINICAL INFORMATION: Ordering [...] DATE/TIME OF EXAM: 05/07/2025 5:23 PM, LOCATION [facility] INDICATION: T14.90XA: Trauma ADDITIONAL CLINICAL INFORMATION: Ordering [...] pelvis. > Dictated by Mariaa Weems MD, (echocardiography radiology technologist) 05/07/2025 5:37 PM. > Dictated by Linen Supervisor I, Jorge Noe MD have personally reviewed [...] pelvis. > Dictated by Mariaa Weems MD, (echocardiography radiology technologist) 05/07/2025 5:37 PM. > Dictated by Linen Supervisor I, Jorge Noe MD have personally reviewed and interpreted this examination/study. > Interpreting Provider: Jorge Noe MD on 05/07/2025 9:26 PM Narrative 05/07/2025 9:26 PM CDT PROCEDURE: CT HEAD WO CONTRAST, CT ANGIO NECK, CT LUMBAR SPINE WO CONTRAST, CT THORACIC SPINE WO CONTRAST, CT CERVICAL SPINE WO CONTRAST, CT FACIAL BONES WO CONTRAST, DATE/TIME OF EXAM: 05/07/2025 5:23 PM, LOCATION [facility] INDICATION: T14.90XA: Trauma ADDITIONAL CLINICAL INFORMATION: Ordering [...] DATE/TIME OF EXAM: 05/07/2025 5:23 PM, LOCATION [facility] INDICATION: T14.90XA: Trauma ADDITIONAL CLINICAL INFORMATION: Ordering [...] pelvis. > Dictated by Mariaa Weems MD, (echocardiography radiology technologist) 05/07/2025 5:37 PM. > Dictated by Linen Supervisor I, Jorge Noe MD have personally reviewed [...] dislocation. > Dictated by Mariaa Weems MD, (echocardiography radiology technologist). > Dictated by Linen Supervisor I, Emeka Queen MD have personally reviewed and interpreted this examination/study. > Interpreting Provider: Emeka Queen MD on 05/08/2025 1:11 AM Narrative 05/08/2025 1:11 AM CDT PROCEDURE: XR PELVIS 1 OR 2VW, DATE/TIME OF EXAM: 05/07/2025 4:52 PM, LOCATION [facility] INDICATION: T14.90XA: Trauma ADDITIONAL CLINICAL INFORMATION: Ordering [...] DATE/TIME OF EXAM: 05/07/2025 4:52 PM, LOCATION [facility] INDICATION: T14.90XA: Trauma ADDITIONAL CLINICAL INFORMATION: Ordering [...] dislocation. > Dictated by Mariaa Weems MD, (echocardiography radiology technologist). > Dictated by Linen Supervisor I, Emeka Queen MD have personally reviewed [...] identified. Report dictated by Mariaa Weems MD, (echocardiography radiology technologist). > Dictated by Linen Supervisor I, Emeka Queen MD have personally reviewed and interpreted this examination/study. > Interpreting Provider: Emeka Queen MD on 05/08/2025 1:10 AM Narrative 05/08/2025 1:10 AM CDT PROCEDURE: XR FOREARM LEFT 2VW OR MORE, DATE/TIME OF EXAM: 05/07/2025 4:52 PM, LOCATION [facility] INDICATION: T14.90XA: Trauma ADDITIONAL CLINICAL INFORMATION: Ordering Provider Reason For Exam: Technologist Note: Additional: COMPARISON: None. FINDINGS: The radius and ulna are intact without evidence of acute fracture. Bone density and texture are normal. No soft tissue swelling is present. Procedure Note Emeka Queen MD - 05/08/2025 PROCEDURE: XR FOREARM LEFT 2VW OR MORE, DATE/TIME OF EXAM: 54:52 PM, LOCATION [facility] INDICATION: T14.90XA: Trauma ADDITIONAL CLINICAL INFORMATION: Ordering Provider Reason For Exam: Technologist Note: Additional: COMPARISON: None. FINDINGS: The radius and ulna are intact without evidence of acute fracture. Bone density and texture are normal. No soft tissue swelling is present. IMPRESSION: No acute radial or ulnar fracture identified. Report dictated by Mariaa Weems MD, (echocardiography radiology technologist). > Dictated by Linen Supervisor I, Emeka Queen MD have personally reviewed [...] DATE/TIME OF EXAM: 05/07/2025 4:52 PM, LOCATION [facility] INDICATION: T14.90XA: Trauma ADDITIONAL CLINICAL INFORMATION: Ordering Provider Reason For Exam: Technologist Note: Additional: COMPARISON: None. TECHNIQUE: Frontal radiograph of the chest. FINDINGS/IMPRESSION: Cervical spinal fusion hardware is visualized. Cardiomegaly. Mediastinal silhouette appears normal. No pleural effusion or pneumothorax. No focal consolidation. Report dictated by Mariaa Weems MD, (Linen Supervisor). > Dictated by Linen Supervisor I, Emeka Queen MD have personally reviewed and interpreted this examination/study. > Interpreting Provider: Emeka Queen MD on 05/08/2025 1:11 AM Procedure Note Emeka Queen MD - 05/08/2025 PROCEDURE: XR CHEST 1VW PORTABLE, DATE/TIME OF EXAM: 05/07/2025 4:52 PM, LOCATION [facility] INDICATION: T14.90XA: Trauma ADDITIONAL CLINICAL INFORMATION: Ordering Provider Reason For Exam: Technologist Note: Additional: COMPARISON: None. TECHNIQUE: Frontal radiograph of the chest. FINDINGS/IMPRESSION: Cervical spinal fusion hardware is visualized. Cardiomegaly. Mediastinal silhouette appears normal. No pleural effusionor pneumothorax. No focal consolidation. Report dictated by Mariaa Weems MD, (Linen Supervisor). > Dictated by Linen Supervisor I, Emeka Queen MD have personally reviewed and interpreted this examination/study. > Interpreting Provider: Emeka Queen MD on 05/08/2025 1:11 AM Matt Man MD DIAGNOSTIC IMAGING ORDERAB LES Final Result * TYPE + SCREEN PANEL (05/07/2025 4:46 PM CDT) Antibody Screen NEG 5:45 PM CDT [facility] ABO Rh O POS 05/07/2025 5:45 PM CDT [facility] Blood Bank BLOOD SPECIMEN / Unknown Venipuncture / Unknown 05/07/2025 4:46 PM CDT 05/07/2025 4:50 PM CDT Matt Man MD LAB - BLOOD BANK ORDERABLE S Final Result Performing Organization Address [facility]/ZIP Co de Phone Number [facility] [address] [place] [address], [facility] [phone] * PTT (05/07/2025 4:46 PM CDT) APTT 37.1 23.0 - 38.4 Seconds 05/07/2025 5:22 PM CDT [facility] Comment:Suggested therapeuti c range for full dose I.V. unfractionated heparin therapy for venous thromboembolism is 71 to 109 seconds. Blood BLOOD SPECIMEN / Unknown Venipuncture / Unknown 05/07/2025 4:46 PM CDT 05/07/2025 4:50 PM CDT Matt Man MD LAB - COAGULATION ORDERABL ES Final Result [facility] [address] [place] [address], [place] [phone] * PT-INR (05/07/2025 4:46 PM CDT) PT 14.0 12.1 - 14.8 Seconds 05/07/2025 5:22 PM CDT [facility] INR 1.1 See Comment 05/07/2025 5:22 PM [facility] Comment:The suggested therap eutic range for standard coumadin (warfarin) therapy is an INR of 2.0-3.0. For high-risk patients (Mechanical Mitral Valve Prosthesis, etc.), the suggested prophylactic therapeutic range is an INR of 2.5-3.5. Blood BLOOD SPECIMEN / Unknown Venipuncture / Unknown 05/07/2025 4:46 PM CDT 05/07/2025 4:50 PM CDT us Matt Man MD LAB - COAGULATION ORDERABL ES Final Result [facility] [address] [place] [phone], [facility] [phone] * (ABNORMAL) CBC W AUTO DIFFERENTIAL (05/07/2025 4:46 PM CDT) WBC 10.8(H) 4.0 - 10.7 x10E9/L 05/07/2025 4:54 PM [facility] RBC Count 4.11(L) 4.30 - 5.80 x10E12/L 05/07/2025 4:54 PM [facility] Hemoglobin 12.8(L) 13.3 - 17.5 g/dL 05/07/2025 4:54 PM [facility] Hematocrit 36.9(L) 38.7 - 51.1 % 05/07/2025 4:54 PM [facility] MCV 89.8 80.0 - 98.0 fL 05/07/2025 4:54 PM [facility] MCH 31.1 26.7 - 33.6 pg 05/07/2025 4:54 PM [facility] MCHC 34.7 31.7 - 36.3 g/dL 05/07/2025 4:54 PM [facility] RDW-CV 12.9 11.3 - 14.8 % 05/07/2025 4:54 PM [facility] Platelet Count 258 150 - 420 x10E9/L 05/07/2025 4:54 PM [facility] MPV 10.2 7.8 - 11.4 fL 05/07/2025 4:54 PM CDT [facility] Neutrophil % 58.4 41.0 - 74.0 % 05/07/2025 4:54 PM CDT [facility] Lymphocyte % 29.4 17.0 - 47.0 % 05/07/2025 4:54 PM CDT [facility] Monocyte % 7.7 3.0 - 11.0 % 05/07/2025 4:54 PM CDT [facility] Eosinophil % 3.2 0.0 - 7.0 % 05/07/2025 4:54 PM CDT [facility] Basophil % 0.7 0.0 - 1.6 % 05/07/2025 4:54 PM CDT [facility] Immature Granulocytes % 0.6 0.0 - 1.0 % 05/07/2025 4:54 PM CDT [facility] Neutrophil Absolute 6.27 1.60 - 7.50 x10E9/L 05/07/2025 4:54 PM CDT [facility] Lymphocyte Absolute 3.17 1.00 - 4.40 x10E9/L 05/07/2025 4:54 PM CDT [facility] Monocyte Absolute 0.83 0.15 - 1.00 x10E9/L 05/07/2025 4:54 PM CDT [facility] Eosinophil Absolute 0.35 0.00 - 0.60 x10E9/L 05/07/2025 4:54 PM CDT [facility] Basophil Absolute 0.08 0.00 - 0.13 x10E9/L 05/07/2025 4:54 PM T [facility] Blood BLOOD SPECIMEN / Unknown Venipuncture / Unknown 05/07/2025 4:46 PM CDT 05/07/2025 4:50 PM CDT us Matt Man MD LAB - HEMATOLOGY ORDERABLE S Final Result [facility] [address] [place] [address], [facility] [phone] * (ABNORMAL) COMPREHENSIVE METABOLIC PANEL (05/07/2025 4:46 PM CDT) BUN 10 7 - 26 mg/dL 05/07/2025 5:18 PM [facility] Creatinine 0.89 0.71 - 1.16 mg/dL 05/07/2025 5:18 PM [facility] Sodium 135(L) 136 - 145 mmol/L 05/07/2025 5:18 PM [facility] Potassium 3.9 3.5 - 4.5 mmol/L 05/07/2025 5:18 PM [facility] Chloride 106 98 - 107 mmol/L 05/07/2025 5:18 PM [facility] CO2 21(L) 22 - 29 mmol/L 05/07/2025 5:18 PM [facility] Glucose 99 70 - 99 mg/dL 05/07/2025 5:18 PM [facility] Calcium 8.5 8.4 - 10.2 mg/dL 05/07/2025 5:18 PM [facility] Protein Total 6.8 6.0 - 8.3 g/dL 05/07/2025 5:18 PM [facility] Albumin 3.9 3.4 - 5.0 g/dL 05/07/2025 5:18 PM [facility] Bilirubin Total 0.2 0.2 - 1.2 mg/dL 05/07/2025 5:18 PM [facility] Alkaline Phosphatase 69 40 - 150 U/L 05/07/2025 5:18 PM [facility] ALT 11 5 - 55 U/L 05/07/2025 5:18 PM [facility] AST 13 5 - 34 U/L 05/07/2025 5:18 PM [facility] Anion Gap 8 6 - 16 05/07/2025 5:18 PM [facility] BUN/Creatinine Ratio 11 7 - 23 05/07/2025 5:18 PM [facility] Osmolality Calculated 279 275 - 295 mOsm/kg 05/07/2025 5:18 PM [facility] Albumin/Globulin Ratio 1.3 1.1 - 2.3 05/07/2025 5:18 PM [facility] eGFR by CKD-EPI >90 >=90 mL/min/1.7 3 m2 05/07/2025 5:18 PM CDT [facility] Comment:Estimated Glomerular Filtration Rate (eGFR) calculated using the CKD-EPI Creatinine Equation (2020), per the National Kidney Foundation and [place] [employer]ph[employer] recommendations. Blood BLOOD SPECIMEN / Unknown Venipuncture / Unknown 05/07/2025 4:46 PM CDT 05/07/2025 4:50 PM CDT us Matt Man MD LAB - CHEMISTRY ORDERABLES Final Result [facility] [id number] [place] [address], [place] [phone] * (ABNORMAL) ALCOHOL ETHYL BLOOD (05/07/2025 4:46 PM CDT) Ethanol (mg/dL) 99(H) <10 mg/dL 5:18 PM CDT [facility] Ethanol Calculated (g/dL) 0.099(H) <=0.010 g/dL 05/07/2025 5:18 PM CDT [facility] Blood BLOOD SPECIMEN / Unknown Venipuncture / Unknown 05/07/2025 4:46 PM CDT 05/07/2025 4:50 PM CDT Narrative [facility] - 05/07/2025 5:18 PM CDT Ethanol Interp <10: None Detected. 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
--- OUTSIDE RECORDS SUMMARY | 2025-05-18 12:19 | XMS_ITS | Clinical Summary ---
Author Organization [facility] Address [address] [place] [address] Care Team Providers Care Net Making Supervisor Name Role Phone [facility], Dank Melo Primary Care Pro vider Allergies Active Allergy Reactions Criticality Noted Date Comments Iodinated Contrast Media Swelling Medium 10/12/2018 Medications losartan (COZAAR) 25 mg tablet Take 25 mg by mouth hospitality workers before breakfast Active busPIRone (BUSPAR) 15 mg tabletIndicatio ns:Generalized Anxiety Disorder Take 15 mg by mouth hospitality workers before breakfast Active clomiPHENE (CLOMID) 50 mg tablet Take 25 mg by mouth hospitality workers before breakfast Active multivitamin tablet,chewable Take 1 [...] (10/19/2018): Added automatically from request for surgery [id number] 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 region 10/12/2018 Overview (10/12/2018): Assessment & Plan (10/12/2018 2:09 PM SEAFOOD CLERK): Mr. Garza has a right C8 radiculopathy [...] on file Legal Sex Male 12:40 AM SEAFOOD CLERK Gender Identity Not on file Sexual Orientation Not on file Occupation Industry Job Start Date Job End Date [employer] Not on file Not on file Not [...] this topic Medical Devices Implanted Type Area Gynaecological Oncologist Device Identifier Shelf Expiration Date Model / Serial / Lot Core Link Anodyne 12mm Level 1 Spine Cervical Anterior Plate Bone - [id number] Implanted:Qty: 1 on 11/26/2018 by Corona Case MD at [facility] Plate N/A: Spine Cervical Core Link / / Core Link [id number] Anodyne 4mm 14mm Variable Angle Self Tap Spine Cervical Screw - [id number] Implanted:Qty: 4 on 11/26/2018 by Corona Case MD at [facility] Screw N/A: Spine Cervical Core Link / / [employer] 700-025 I Factor Allograft Putty Syringe Graft 2.5cc Bone - [id number] Implanted:Qty: 1 on 11/26/2018 by Corona Case MD at [facility] N/A: Cervical-Tho racic Spine [employer] 08/30/2021 700-025 / / [id number] [employer] 3d Cervical [id number] 7 Deg - [id number] Implanted:Qty: 1 on 11/26/2018 by Corona Case MD at [facility] N/A: Cervical-Tho racic Spine Core Link [id number] 04/15/2023 [id number] / / [id number] Insurance [employer] [place] Advance Directives For more information, please contact: [phone] * Full Code (Latest Code Status on File) Date Activated Date Inactivated Comments 11/26/2018 4:08 PM 11/26/2018 10:37 PM Care Teams Net Making Supervisor Relationship Specialty Start Date End Date [facility], Dank Melo [address] [place] [id number] PCP - General Genetics 12/21/23
--- OUTSIDE RECORDS SUMMARY | 2025-05-18 12:19 | XMS_ITS | Clinical Summary ---
Author Organization [facility] Address [facility] [place] [address] Care Team Providers Care Coal Carrier Name Role Phone Non-Staff, Provider Primary Care [...] Comments Blood Pressure 166/87 08/07/2023 7:22 AM [place] ADMINISTRATIVE LAW JUDGE Pulse 63 08/07/2023 7:22 AM US ADMINISTRATIVE LAW JUDGE Temperature 36.8 C (98.2 F) 08/07/2023 7:22 AM [employer] ADMINISTRATIVE LAW JUDGE Respiratory Rate 18 08/07/2023 7:22 AM [employer] ADMINISTRATIVE LAW JUDGE Oxygen Saturation 100% 08/07/2023 7:22 AM [employer] ADMINISTRATIVE LAW JUDGE Inhaled Oxygen Concentration - - Weight 92.1 kg (203 lb) 08/07/2023 7:22 AM US ADMINISTRATIVE LAW JUDGE Height 182.9 cm (6') 08/07/2023 7:22 AM [employer] ADMINISTRATIVE LAW JUDGE Body Mass Index 27.53 08/07/2023 7:22 AM [place] ADMINISTRATIVE LAW JUDGE Plan of Treatment Health Maintenance Due Date [...] patient's age to complete this topic Insurance [place] Care Teams Coal Carrier Relationship Specialty Start Date End Date Non-Staff, Provider PCP - General UNKNOWN PHYSICIAN SPECIALTY 07/30/23
--- OUTSIDE RECORDS SUMMARY | 2025-05-18 12:19 | XMS_ITS | Encounter Summary ---
Author Organization [facility] Address [address] [place] [address] Care Team Providers Care Trade Marker Name Role Phone Unavailable Primary Care Provider [...]
[2025-05-18 12:30] VITALS: BP 146/85; PULSE 77; RESP 20; TEMP 36.7; O2SAT 100
--- NOTE | 2025-05-18 13:20 | PC.NURSE ---
On 05/18/25, the student, [SHAUN HATHAWAY ], provided care and completed DrDoctor documentation on this patient. I have reviewed the student's documentation and agree with the findings.
== END 2025-05-18 12:30 | disposition home or self-care (01) ==
PROVIDERS: Emergency Provider Emergency Medicine
DX: S00.03XA Contusion of scalp, initial encounter (principal); L03.114 Cellulitis of left upper limb; I48.91 Unspecified atrial fibrillation; I48.0 Paroxysmal atrial fibrillation; E78.2 Mixed hyperlipidemia; I10 Essential (primary) hypertension; Z87.891 Personal history of nicotine dependence; X58.XXXA Exposure to other specified factors, initial encounter
CPT/HCPCS: 96372; 99283; J0696; J2003